=== PATIENT | female | born 1940 | race Caucasian/White ===

== ENCOUNTER 2019-06-05 11:28 | Observation (INO) | payer MEDICARE, SELFPAY ==
[2019-06-05] VITALS (7 sets, daily range): BP systolic 106–181; BP diastolic 47–91; PULSE 61–83; RESP 16–33; TEMP 36.6–36.8; O2SAT 95–99; BMI 22.7
--- NOTE | ~2019-06-05 | XR_ITS ---
EXAMINATION: XR chest 1V portable DATE: 06/05/2019 12:00 INDICATION: Altered mental status. TECHNIQUE: A single frontal view of the chest was obtained. COMPARISON: Chest 2 views 02/22/2019, chest CT 11/04/2018 FINDINGS: There is mild scarring at the lung apices. There are lucencies in the lungs, consistent wit h emphysema. No pleural effusion or pneumothorax. The heart size is normal. IMPRESSION: 1. Mild scarring at the lung apices. 2. Emphysema. Reviewed, dictated and finalized at location A. DCASTER
--- NOTE | ~2019-06-05 | XR_ITS ---
EXAMINATION: XR barium swallow modified EXAM DATE: 06/07/2019 10:46 INDICATION: Dysphagia. TECHNIQUE: Modified barium esophagram was performed by myself to administered fluoroscopy, in conjun ction with speech pathologist who administered barium in varying consistencies as per speech patholog ist documentation. This was recorded on tape. The DAP for this procedure was 0.5 Gycm2. FINDINGS: Oral stage: Adequate function. Pharyngeal phase: Adequate function. Laryngeal penetration: Trace. Aspiration: None. Laryngeal sensitivity: Present. IMPRESSION: Patient tolerated oral feedings in the upright position. Please refer to speech patholo gist findings and specific feeding recommendations. Reviewed, dictated and finalized at location A. AURANT LINE COOK IMPRESSION: Patient tolerated oral feedings in the upright position. Please r efer to speech pathologist findings and specific feeding recommendations.
--- NOTE | ~2019-06-05 | CT_ITS ---
EXAMINATION: CT abdomen pelvis wo con DATE: 06/05/2019 13:16 INDICATION: Abdominal pain. TECHNIQUE: Computed tomography (CT) of the abdomen and pelvis was performed without intravenous contr ast. Automated exposure control and iterative reconstruction technique were employed. The dose-length product was 236.49 mGy-cm. COMPARISON: None. FINDINGS: The visualized portions of the lung bases demonstrate emphysema. There is mild atelectasis in the lungs. No pleural effusion. The heart size is normal. No pericardial effusion. There is a 12 m m cyst in the liver. The gallbladder, spleen, pancreas, adrenal glands, and left kidney are normal. T here are 5 stones in right kidney measuring up to 4 mm. There is a 3.1 cm fusiform aneurysm of infrar enal aorta. There are no pathologically enlarged lymph nodes. There is no free intraperitoneal fluid. There is lumbar dextroscoliosis and severe spondylosis. IMPRESSION: 1. Nonobstructing right kidney stones. 2. 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 Reviewed, dictated and finalized at location A. OMER OPERATIONS ASSOCIATE
--- NOTE | ~2019-06-05 | US_ITS ---
EXAMINATION: US renal BI DATE: 06/06/2019 08:04 INDICATION: Acute renal failure. TECHNIQUE: Multiple ultrasound grayscale images of the kidneys were obtained. COMPARISON: CT abdomen and pelvis 06/05/2019 FINDINGS: The right kidney measures 9.9 x 3.8 x 3.6 cm. The left kidney measures 10.5 x 4.7 x 5.4 cm. The kidne ys demonstrate normal parenchymal echogenicity. There are stones in right kidney measuring up to 4 mm . There is no hydronephrosis. The bladder is not well distended. IMPRESSION: 1. Normal kidney sizes No hydronephrosis. 2. Nonobstructing right kidney stones. Reviewed, dictated and finalized at location A. ATRIC NEPHROLOGIST
--- NOTE | ~2019-06-05 | CT_ITS ---
EXAMINATION: CT brain wo con EXAM DATE: 06/05/2019 12:35 INDICATION: Temporary change in awareness. TECHNIQUE: Spiral CT of the head was performed without contrast. Axial, coronal and sagittal images were reviewed. The dose-length product (DLP) for this examination was 605.33 mGy-cm. The exposure w as tailored according to patient size, and iterative reconstruction (ASIR) was used as additional dos e reduction technique. Comparison is made to prior examination from 10/07/2017. FINDINGS: There is no acute intraparenchymal hemorrhage. No evidence of intraparenchymal brain mass lesion. No evidence of acute infarction. Mild cerebral atrophy. There is no mass effect or midline s hift. The ventricles are normal in size. There are no extra-axial collections. There are no acute calvarial fractures. Patient has had bilateral ocular lens surgery. Soft tissue is unremarkable. Mi ld mucoperiosteal thickening and mild intracranial arterial sclerosis. IMPRESSION: 1. No acute intracranial findings. Reviewed, dictated and finalized at location A. EAR FUEL ENRICHMENT TECHNICIAN
--- NOTE | 2019-06-05 11:39 | ED.NEUROSD ---
HPI - Neuro Symptoms/Deficit General Chief Complaint: Neuro Symptoms/Deficit Stated Complaint: dizzy, weakness Time Seen by Provider: 06/05/19 11:33 Source: family (son) Mode of arrival: wheelchair Limitations: other (clinical condition) History of Present Illness HPI Narrative: Pt is a 79 y/o female who presents to the ED by son, with c/o a possible stroke. Pt lives with her granddaughter and has a H/o stroke. She also has a H/o COPD and this morning she went and got her blood drawn. Pt went to physical therapy this morning and when her son saw her she was not acting normal. Pt's son states that she was san[place] this morning and was not answering his questions and staring off. Pt has been nauseas and having problems with her stomach. Per son, they were on their way to the hospital to get O2 tubing and he stopped by the ED because she was not responding to his questions. Pt is on blood thinners and pt did not have anything to eat today. Per son, pt had a similar episode and was seen in the ED for dehydration. A complete HPI is limited d/t pt's clinical condition. Onset (ago): unknown Location: altered History of same: Yes Severity: similar to previous episodes Quality: other (not responding to questions) Context: gradual onset On Anticoagulants: Yes Associated symptoms: confusion Related Data Allergies Allergy/AdvReac Type Severity Reaction Status Date / Time atorvastatin [From Lipitor] Allergy Hives Verified 06/05/19 11:50 fenofibrate Allergy Hives Verified 06/05/19 11:51 Review of Systems Review of Systems: Narrative: A complete ROS is limited d/t pt's clinical condition. Gastrointestinal: Gastrointestinal: Reports nausea Neurologic: Reports behavioral changes and Reports confusion [facility] Past Medical History Medical History (Updated 06/05/19 @ 13:52 by Shashi Tam DO) COPD (chronic obstructive pulmonary disease) GERD (gastroesophageal reflux disease) HTN (hypertension) Shingles Stroke Surgical History Surgical History (Updated 06/05/19 @ 12:22 by Reji Lawrence) H/O bilateral cataract extraction H/O: hysterectomy Family History Family History (Updated 07/14/17 @ 11:18 by DOCTOR UNKNOWN) Mother Hypertension Cerebrovascular accident Sibling Cerebrovascular accident Family history of coronary artery disease Father Family history of chronic obstructive pulmonary disease Social History Social History Smoking status: Former smoker Second hand tobacco smoke exposure: No Smoking end date: 05/03/16 Alcohol intake: never Gender identity (if verbalized by the patient): Female Exam Narrative: Exam Narrative: APPEARANCE: No acute distress, nontoxic, resting in bed HEENT: Normocephalic, atraumatic, oral mucosa dry EYES: PERRL, EOMI NECK: Supple, nontender, full range of motion without pain, no meningismus RESPIRATORY: No respiratory distress, clear to auscultation bilaterally with no rhonchi wheezing or rales CARDIOVASCULAR: RRR s murmur ABDOMINAL: Soft, nontender, nondistended MUSCULOSKELETAL: Moves all extremities. No clubbing, cyanosis or edema. NEURO: A and O ?3, following commands, speech normal, cranial nerves II through XII grossly intact,muscle strength 5 out of 5 bilateral upper and lower extremities SKIN:: Warm, dry. Normal Color PSYCHIATRIC: Normal affect/mood Course Course Emergency Course: Reviewed records creatinine 1.5 at last visit Discussed with patient and family results of workup and diagnosis. Discussed need for admission. Patient and family understand and agree to current treatment plan Consultations Consultation #1: Discussed case with Nia Lopez NP for the hospitalist. Accepted admission. Date: 06/05/19 Time: 13:43 Vital Signs Vital signs: Vital Signs Temperature 97.8 F 06/05/19 11:40 Pulse Rate 63 06/05/19 11:40 Respiratory Rate 23 H 06/05/19 11:40 Blood Pressure 135/52 L 06/05/19 11:40 Puls
[2019-06-05 11:42] LABS: Glucose Point of Care 104 (65-105)
--- NOTE | 2019-06-05 11:43 | ECG_ITS ---
Measurements Intervals [place] Rate: 66 P: 63 IN: 159 QRS: 20 QRSD: 77 T: 52 QT: 403 QTc: 423 Interpretive Statements SINUS RHYTHM BORDERLINE ST-T WAVE ABNORMALITY- INF/LAT LEADS BORDERLINE ECG Electronically Signed On 06-05-2019 12:18:36 REGISTERED TRAVEL NURSE by Shoaib Mixon D.O.
[2019-06-05] MEDS: LACTATED RINGERS 1,000 ML 999 ML IV CONT (11:51)
[2019-06-05 11:59] LABS: Basophils Absolute Auto 0.2 K/mm3 (0.0-0.1); Eosinophils Absolute Auto 7.3 K/mm3 (0-0.3); Eosinophils Percent Auto 37.8 % (0-4.4); Hematocrit 39.5 % (37.0-47.0); Hemoglobin 12.8 g/dL (12.0-15.0); Immature Granulocyte Absolute 0.06 K/mm3 (0.00-0.031); Immature Granulocyte Percent A 0.3 % (0-0.5); Lymphocytes Absolute Auto 3.46 K/mm3 (0.9-3.2); Lymphocytes Percent Auto 17.9 % (18.3-44.2); Mean Corpuscular HGB Conc 32.4 g/dl (32-36); Mean Corpuscular Hemoglobin 30.2 pg (26-34); Mean Corpuscular Volume 93.2 fl (80-100); Mean Platelet Volume 10.9 fl (7.4-10.4); Monocytes Absolute Auto 0.8 K/mm3 (0.1-0.6); Monocytes Percent Auto 4.3 % (2.6-8.5); Neutrophils Absolute Auto 7.5 K/mm3 (1.3-6.7); Neutrophils Percent Auto 38.7 % (45.5-73.1); Platelet Count Result 320 k/mm3 (150-375); Red Blood Count 4.24 M/mm3 (4.2-5.4); White Blood Count 19.3 K/mm3 (4.5-10.0)
[2019-06-05 12:10] LABS: INR 0.9; Prothrombin Time 11.8 Seconds (11.1-14.7)
[2019-06-05 12:14] LABS: Alanine Aminotransferase 12 U/L (4-35); Albumin Level 4.3 g/dL (3.5-5.1); Alkaline Phosphatase 77 U/L (38-126); Aspartate Amino Transferase 18 U/L (14-36); Bilirubin,Total 0.6 mg/dL (0.2-1.3); Blood Urea Nitrogen 43 mg/dL (7-17); Calcium 9.6 mg/dL (8.4-10.2); Carbon Dioxide 22 mmol/L (22-30); Chloride 100 mmol/L (98-107); Estimated CRCL calculation 13 ml/min; Estimated Glomerular Filt Rate 15; Glucose 115 mg/dL (65-105); Potassium 4.6 mmol/L (3.4-5.0); Sodium 136 mmol/L (137-145)
--- NOTE | 2019-06-05 12:15 | PC.NURSE ---
Pt taken to CT.
[2019-06-05 12:25] LABS: Troponin I < 0.012 ng/mL (0.000-0.034)
[2019-06-05 12:42] LABS: Lactic Acid Reflex 1.1 mmol/L (0.7-2.1)
[2019-06-05 12:49] LABS: Add Urine Microscopic? YES; Appearance Urine Clear (Clear); Bilirubin Urine Negative (Negative); Blood Urine Negative (Negative); Color Urine Yellow (Yellow); Glucose Urine UA Negative (Negative); Ketones Urine Trace mg/dL (Negative); Leukocyte Esterase Ur Negative LEU/UL (Negative); Mucus Urine Rare /lpf; Nitrate Urine Negative (Negative); Protein Urine Negative (Negative); RBC Urine 0-2 /hpf (0-2); Specific Grav Ur 1.011 (1.001-1.035); Squamous Epithelial Cell Urine Moderate /hpf (Few); Urobilinogen Urine Negative mg/dL (<2.0); WBC Urine 0-3 /hpf
--- NOTE | 2019-06-05 15:10 | ADMGEN ---
This patient, Grecia Peres, was admitted to Medical Room 346-. Patient arrived to unit per wheelchair. Patient/family oriented to hospital policies and general routines including ID bracelet, bed and alarms, visiting hours, pain management, procedures, bathroom and other care routines, personal items, smoking policy, room service/diet, and visiting hours. Valuables list has been completed. Information on how to activate the Rapid Response Team has been discussed. Patient/Family are encouraged to report perceived risks to care and to ask questions if they do not understand what they are told or what they should do.
[2019-06-05] MEDS: LACTATED RINGERS 1,000 ML 100 ML IV CONT (15:24)
[2019-06-05] MEDS: hydrALAZINE HCL 20 MG/ML VIAL 10 MG IV PUSH (16:30)
--- NOTE | 2019-06-05 18:35 | ECG_ITS ---
Measurements Intervals [place] Rate: 86 P: 69 ME: 147 QRS: 53 QRSD: 77 T: 72 QT: 360 QTc: 433 Interpretive Statements SINUS RHYTHM BORDERLINE ST ABNORMALITY- DIFFUSE LEADS BASELINE ARTIFACT- V1-V3, V5-V6 BORDERLINE ECG Electronically Signed On 06-06-2019 6:54:14 SLOT MACHINE MECHANIC by Shoaib Mixon D.O.
[2019-06-05 19:22] LABS: Troponin I < 0.012 ng/mL (0.000-0.034)
[2019-06-05 22:20] LABS: Troponin I < 0.012 ng/mL (0.000-0.034)
[2019-06-06] VITALS (20 sets, daily range): BP systolic 134–180; BP diastolic 61–80; PULSE 66–98; RESP 16–18; TEMP 36.1–36.4; O2SAT 95–99; BMI 22.7
--- NOTE | 2019-06-06 00:06 | PM.IMHP ---
H&P: HPI History of Present Illness Chief complaint: Acute renal failure/Leukocytosis Narrative: Grecia Peres is a 79 year old female Has a history of having several TIA. Patient is currently on Plavix and aspirin. The patient also has COPD and is only on oxygen at night. The patient's son stated that she was grave this morning and was not answering questions and she was staring off into space. She has been nauseated having some acid reflux and takes omeprazole. The patient was on her way to the hospital to get oxygen 2 being his stop by the emergency room because the patient was not responding any questions. Patient is now awake and answering questions without difficulty. Head CT was negative. CT of the abdomen was also taken due to her nausea and it was read as nonobstructing right kidney stone. 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 Date of service 06/05/2019 creatinine was noted to be 3.0 with last creatinine being 1.5 approximately 4 months ago. The patient was started on IV fluids. She is admitted for acute renal failure dehydration. Review of Systems Review of Systems: All systems reviewed & are unremarkable except as noted in HPI and below Constitutional: Constitutional: Reports as per HPI, Reports no additional constitutional complaints, Reports fatigue, Reports lethargy, Reports malaise and Reports weakness Eyes: Eyes: Reports as per HPI and Reports no additional eye complaints ENT: Reports system reviewed and no additional complaints, except as documented and Reports Normal hearing present Cardiovascular: Cardiovascular: Reports no additional cardiovascular complaints, Reports chest pain ( chest pressure earlier today) and Reports dyspnea on exertion ( she has CHF and COPD) Respiratory: Respiratory: Reports no additional respiratory complaints, Reports no additional respiratory complaints, Reports dyspnea ( With exertion), Reports wheezing and Reports other ( wears oxygen at 2 L night. History of COPD) Gastrointestinal: Gastrointestinal: Reports as per HPI, Reports no additional gastrointestinal complaints, Reports excessive flatus, Reports dyspepsia and Reports nausea Musculoskeletal: Musculoskeletal: Reports no additional musculoskeletal complaints Integumentary/Breasts: Skin/Breast: Reports system reviewed and no additional complaints, except as docu and Reports as per HPI Neurologic: Reports system reviewed and no additional complaints, except as documented, Reports as per HPI and Reports Normal hearing present Psychiatric: Psychiatric: Reports no additional psychiatric complaints and Reports as per HPI Endocrine: Endocrine: Reports no additional endocrine complaints Hematologic/Lymphatic: Hematologic/Lymphatic: Reports no additional hematologic/lymphatic complaints Allergic/Immunologic: Allergic/Immunologic: Reports no additional allergic/immunologic complaints [facility] Past Medical History Medical History (Updated 06/06/19 @ 00:19 by Nia Lopez NP) Congestive heart failure diastolic COPD (chronic obstructive pulmonary disease) GERD (gastroesophageal reflux disease) History of TIAs x6 HTN (hypertension) Hypoxia Restless leg syndrome Shingles x2 across breast Stroke Surgical History Surgical History (Updated 06/05/19 @ 12:22 by Reji Lawrence) H/O bilateral cataract extraction H/O: hysterectomy Family History Family History Mother Hypertension Cerebrovascular accident Sibling Cerebrovascular accident Family history of coronary artery disease Father Family history of chronic obstructive pulmonary disease Social History Social History (Updated 06/06/19 @ 00:14 by Nia Lopez NP) Social History: the patient is from her who is now . She lives with her granddaughter. She has 2 children. Her son is the power assistant county attorney. She desires full code but does not want to live on a ventilator is a veg
[2019-06-06] MEDS: PROPRANOLOL HCL 20 MG TABLET 60 MG PO ×3 (01:11→20:58)
[2019-06-06] MEDS: LACTATED RINGERS 1,000 ML 100 ML IV CONT ×3 (01:12→21:01)
[2019-06-06 02:23] LABS: Troponin I < 0.012 ng/mL (0.000-0.034)
[2019-06-06] MEDS: ALBUTEROL SULFATE NEB 2.5 MG/0.5 ML INH 5 MG INHALATION ×4 (03:08→22:12)
[2019-06-06 03:48] LABS: Creatinine Urine 27.7 mg/dL
[2019-06-06 04:16] LABS: Sodium Urine Random 47 meq/L
[2019-06-06 06:19] LABS: Basophils Absolute Auto 0.2 K/mm3 (0.0-0.1); Basophils Percent Auto 1.2 % (0.2-1.2); Eosinophils Absolute Auto 6.8 K/mm3 (0-0.3); Eosinophils Percent Auto 44.1 % (0-4.4); Hematocrit 33.8 % (37.0-47.0); Hemoglobin 11.1 g/dL (12.0-15.0); Immature Granulocyte Absolute 0.04 K/mm3 (0.00-0.031); Immature Granulocyte Percent A 0.3 % (0-0.5); Lymphocytes Absolute Auto 2.92 K/mm3 (0.9-3.2); Lymphocytes Percent Auto 18.9 % (18.3-44.2); Mean Corpuscular HGB Conc 32.8 g/dl (32-36); Mean Corpuscular Hemoglobin 30.2 pg (26-34); Mean Corpuscular Volume 92.1 fl (80-100); Mean Platelet Volume 10.5 fl (7.4-10.4); Monocytes Absolute Auto 0.7 K/mm3 (0.1-0.6); Monocytes Percent Auto 4.7 % (2.6-8.5); Neutrophils Absolute Auto 4.8 K/mm3 (1.3-6.7); Neutrophils Percent Auto 30.8 % (45.5-73.1); Platelet Count Result 285 k/mm3 (150-375); Red Blood Count 3.67 M/mm3 (4.2-5.4); Red Cell Distribution Width 13.8 % (11.5-14.5); White Blood Count 15.4 K/mm3 (4.5-10.0)
[2019-06-06 06:35] LABS: Blood Urea Nitrogen 35 mg/dL (7-17); Calcium 8.9 mg/dL (8.4-10.2); Carbon Dioxide 25 mmol/L (22-30); Chloride 105 mmol/L (98-107); Estimated CRCL calculation 14 ml/min; Estimated Glomerular Filt Rate 16; Glucose 103 mg/dL (65-105); Potassium 4.5 mmol/L (3.4-5.0); Sodium 138 mmol/L (137-145)
[2019-06-06] MEDS: FLUTICASONE PROPIONATE 0.05% NA SPR 16 GM BTL (*BKC) 1 SPRAY NASAL ×2 (09:02→16:26)
[2019-06-06] MEDS: PANTOPRAZOLE SOD SESQUIHYDRATE 20 MG TAB PO (09:03)
[2019-06-06] MEDS: CLOPIDOGREL BISULFATE 75 MG TABLET PO (09:03)
[2019-06-06] MEDS: MULTIVITAMINS THERAPEUTIC TAB (*BKC) 1 TABLET PO (09:03)
[2019-06-06] MEDS: estradioL 0.5 MG TABLET PO (09:03)
[2019-06-06] MEDS: ASPIRIN 81 MG CHEWABLE TABLET PO (09:03)
[2019-06-06] MEDS: ACETAMINOPHEN 325 MG TABLET 650 MG PO (09:50)
[2019-06-06] MEDS: ROFLUMILAST 500 MCG TABLET PO (09:52)
--- NOTE | 2019-06-06 11:50 | PHAR ---
HOME MED VERIFIED BY PHARMACY: [id number] [Trelegy Ellipta] INHALER
--- NOTE | 2019-06-06 12:45 | PCSTNOTE ---
Bedside Swallow Evaluation completed today using water, applesauce, pudding, and cracker. No s/s aspiration noted. Patient reports occasional tickle when drinking large amounts of water, stating that she does not like water and would rather not drink it. Therapist recommended MBS to further assess swallowing and to determine if there were dietary modifications and/or compensatory strategies that would prevent the tickle and patient and son were in agreement. Therapist spoke with physician who also voiced agreement with recommendation. See BSE report for specific results and recommendations.
--- NOTE | 2019-06-06 13:18 | CONS_ITS ---
DATE OF CONSULTATION: Patient of Dr. Rocky Gastelum. HISTORY OF PRESENT ILLNESS: This 79 years old right-handed female has been admitted to the hospital through the emergency room for the complaint of inability to answer the son's question and staring off into the space. The patient was reportedly on her way to the hospital to get oxygen, but she stopped in the emergency room as she was not responding to the questions. By the time she came to the floor, she was awake, alert, and conversing comfortably. The patient does carry the history of 1. TIA for which she is on Plavix and aspirin. 2. COPD for which she received oxygen at night. In the emergency room, they obtained a CT of the abdomen because of the complaint of nausea. 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 Creatinine was 3.0, it was 1.5 about 4 months ago. She was started on IV fluids for the diagnosis of acute renal failure with dehydration. Other general physical examination was normal. PAST MEDICAL HISTORY: She does have the ongoing history of 1. Diastolic congestive heart failure. 2. Chronic obstructive pulmonary disease. 3. GERD. 4. Hypertension. 5. Restless legs syndrome. 6. Shingles. 7. Recurrent TIA. PAST SURGICAL HISTORY: In the past, she has undergone bilateral cataract extraction and hysterectomy. SOCIAL HISTORY: She smokes 1-1/2 packs per day, though she is a former smoker at present and does not drink. MEDICATIONS: She has been on multiple medications as outlined. ALLERGIES: IN ADDITION, SHE IS ALLERGIC TO ATORVASTATIN AND FENOFIBRATE. PHYSICAL EXAMINATION: VITAL SIGNS: On initial evaluation, she was afebrile with pulse 63, respiration 23, blood pressure 135/52, pulse ox 95%. GENERAL: Examination revealed her to be awake, alert, cooperative, in no obvious acute distress. HEENT: Head normocephalic with no cranial bruit. Ears, nose, throat examination normal. NECK: Supple with no cervical bruit. No thyromegaly. No lymphadenopathy. HEART: Regular with no murmur. LUNGS: Clear to auscultation. ABDOMEN: Soft with no organomegaly. NEUROLOGICAL: She is awake, alert. She is able to follow the verbal commands appropriately. Speech is not dysphasic, not dysarthric, not dysphonic. Pupils round and regular. Wilson of vision full. Extraocular movement full. Face symmetrical. Tongue midline. Motor examination revealed her to have no drift of 1 side or other side. Tone normal. Reflexes symmetrical. Plantars downgoing. There is no evidence of gross cerebellar deficit. IMPRESSION: Transient ischemic attack. Evaluation up until now includes the head CT, which is negative, abdomen and pelvic CT scan, which shows nonobstructive right kidney stone and a 3.1 cm fusiform aneurysm of the infrarenal aorta. Renal ultrasound otherwise was without evidence of hydronephrosis and nonobstructing right renal stone. At this stage, the patient is receiving aspirin 81 mg daily, clopidogrel 75 mg daily. Medications will be continued as such. Thorough discussion was made with the family for further long-term recommendation. WANG KIRAN M.D. THERAPEUTIC CONSULTANT THERAPEUTIC CONSULTANT D I MT: [place]
--- NOTE | 2019-06-06 13:19 | WPDGICN ---
Assessment and Plan Additional Plan This is a 79-year-old white female patient I am asked to see at the request of Dr. Gastelum, hospitalist service. Patient admitted to the hospital with episode of poor responsiveness. She is felt to have had dehydration. She is being evaluated for possible TIA. She has had TIAs in the past. Patient reports over the last 3-4 months that she has had episodes of low abdominal twisting and cramping pain. This is associated with nausea and vomiting. And ultimately passing a bowel movement. This son and patient both report that she is constipated frequently. Patient denies any blood loss. She reports a 7 lb weight loss over the last 1 month. She has a relatively poor appetite. Past medical history is significant for colon polyps by colonoscopy in 2013. Follow-up colonoscopy is not yet been accomplished. She states that she will get these severe episodes of pain 3 to 4 times a month. She desires further evaluation of this. Past medical history is significant for COPD. Congestive heart failure. She has a history of TIAs in the past. She has a history of colon polyps. She has a history of kidney stones. Family history is noncontributory. There is a history of strokes in the family. Physical exam reveals her to be alert. Oriented x3. Vital signs stable. HEENT exam unremarkable. She is anicteric. Lungs are clear to auscultation and percussion. Heart is without murmur or extra sounds. Abdominal exam bowel sounds are present soft nontender with no hepatosplenomegaly. Digital external rectal exam normal. Impression 1. Recurrent nausea vomiting. 2. Recurrent lower abdominal pain. Somewhat suspicious for spastic colon given her description of twisting. May be related to constipation. 3. Change in bowel habits. Constipation. Plan is for fiber stool softener such as Metamucil. As needed laxative such as MiraLax. 4. Episode of unresponsiveness. Likely represents dehydration. TIA is being evaluated as a possibility. 5. COPD 6. Congestive heart failure. 7. History of colon polyp. In view of his history of colon polyps and recurrent lower abdominal pain. Change in bowel habits. Plan is to proceed with colonoscopy in the morning. Will also evaluate EGD to assess recurrent nausea vomiting. Fiber stool softener such as Metamucil is advised to be supplemented with MiraLax laxative. As needed. GI Consult Note Consult date/time: 06/06/19 13:19 HPI: Grecia Peres is a 79 year old female [facility] Past Medical History Medical History (Updated 06/06/19 @ 00:19 by Nia Lopez NP) Congestive heart failure diastolic COPD (chronic obstructive pulmonary disease) GERD (gastroesophageal reflux disease) History of TIAs x6 HTN (hypertension) Hypoxia Restless leg syndrome Shingles x2 across breast Stroke Surgical History Surgical History (Updated 06/05/19 @ 12:22 by Reji Lawrence) H/O bilateral cataract extraction H/O: hysterectomy Family History Family History Mother Hypertension Cerebrovascular accident Sibling Cerebrovascular accident Family history of coronary artery disease Father Family history of chronic obstructive pulmonary disease Social History Social History (Updated 06/06/19 @ 00:14 by Nia Lopez NP) Social History: the patient is from her who is now . She lives with her granddaughter. She has 2 children. Her son is the power erisa attorney. She desires full code but does not want to live on a ventilator is a vegetable. She is originally from [facility]. She is a former smoker Smoking packs per day: 1.5 Smoking cigarettes per day: 30.0 Smoking status: Former smoker Tobacco type: cigarettes Second hand tobacco smoke exposure: No Smoking end date: 05/03/15 Alcohol intake: never Substance use: never Living arrangements: with family [place]
--- NOTE | 2019-06-06 13:30 | NEURO_ITS ---
TEST: ELECTROENCEPHALOGRAM DIAGNOSIS: POSSIBLE SEIZURE PATIENT NUMBER: [id number] EEG NUMBER: [id number] RECORDING DATE: 06/06/19 CONDITION OF RECORDING: Awake and drowsy EEG DESCRIPTION: Basic resting occipital frequency consists of moderate amount of poorly organized low voltage 9-11hz alpha mixed with low voltage 15-18hz beta. Regular intermittent EKG artifacts are noted. During drowsiness low voltage beta activity is seen diffusely mixed with waxing and waning posterior alpha rhythms. Multiple movement and muscle artifacts are noted throughout the tracing. Hyperventilation and photic stimulation were not done. Nonparoxysmal. Nonfocal. Nonlateralizing IMPRESSION: No significant abnormalities noted. MTDD
[2019-06-06] MEDS: PEG (High)/E-LYTE SOLN 4,000 ML BTL 4000 ML PO (14:16)
--- NOTE | 2019-06-06 14:40 | PM.IMPN ---
Progress Note: A&P Assessment and Plan (1) History of TIAs: Code(s): Z86.73 - Personal history of transient ischemic attack (TIA), and cerebral infarction without residual deficits Status: Acute Assessment and Plan: Patient with several TIA in the patient was brought to emergency department with unresponsiveness and staring in the space to further evaluate we have consulted neurologist and ordered EEG further recommendation to follow (2) Dysphagia: Code(s): R13.10 - Dysphagia, unspecified Status: Acute Assessment and Plan: Patient with complaint of dysphagia poor p.o. intake will do the bedside swallow study and modified swallow study patient be seen by GI and further recommendation to follow (3) Acute renal failure: Code(s): N17.9 - Acute kidney failure, unspecified Status: Acute Assessment and Plan: 06/06/19 14:40 patient is 79-year-old female with several TIA in the patient was brought to the emergency department as patient was unresponsive current the patient's son on and off patient states in the space and does not respond, patient also complains of dysphagia and rarely drinks any flu because of the pain with swallowing, patient is also found to have acute kidney injury most likely secondary dehydration due to poor p.o. intake. Kidney and ultrasound shows normal kidneys, will continue to hydrate the patient (4) COPD (chronic obstructive pulmonary disease): Code(s): J44.9 - Chronic obstructive pulmonary disease, unspecified Status: Chronic Assessment and Plan: Patient wears oxygen at nighttime 2 L per nasal cannula. Continue with her nebulizer treatments and inhalers. Continue with Daliresp if we have it on formulation. (5) GERD (gastroesophageal reflux disease): Code(s): K21.9 - Gastro-esophageal reflux disease without esophagitis Status: Chronic Assessment and Plan: Continue with omeprazole. Patient also complains of dysphagia (6) Leukocytosis: Code(s): D72.829 - Elevated white blood cell count, unspecified Status: Acute Assessment and Plan: Could be stress related. Patient urine is clear will continue to monitor (7) Restless leg syndrome: Code(s): G25.81 - Restless legs syndrome Status: Chronic Assessment and Plan: continue with Requip (8) HTN (hypertension): Code(s): I10 - Essential (primary) hypertension Status: Chronic Assessment and Plan: I gave her hydralazine earlier which helped her blood pressure come down nicely. I am holding her lisinopril for tonight and not do p.r.n. hydralazine. continue propanolol. Time Spent With Patient Time with patient: 15 - 25 minutes Subjective Date/time seen: 06/06/19 14:40 patient is 79-year-old female with several TIA in the patient was brought to the emergency department as patient was unresponsive current the patient's son on and off patient states in the space and does not respond, patient also complains of dysphagia and rarely drinks any flu because of the pain with swallowing, patient is also found to have acute kidney injury most likely secondary dehydration due to poor p.o. intake. Review of Systems Review of Systems: All systems reviewed & are unremarkable except as noted in HPI and below Exam Const: General: comfortable and no acute distress HENMT: General nose exam: Normal nares present Mouth: Yes moist mucous membranes Eyes: General: appearance normal, both eyes and all related structures Sclera: sclerae normal Neck: Neck: supple Resp: Other: Bilateral fair air entry with wheezing Cardio: Rate: regular rate Rhythm: regular rhythm GI: Auscultation: normal bowel sounds Skin: General skin exam: normal color and no rashes or lesions noted Neuro: Speech: normal speech Sensory Exam: normal sensation Extrem: General: normal to inspection Psych: Affect: Anxious affect present Objective Data
[2019-06-07] VITALS (11 sets, daily range): BP systolic 152–182; BP diastolic 68–92; PULSE 80–95; RESP 16–27; TEMP 36.2–36.5; O2SAT 97–100
[2019-06-07] MEDS: ALBUTEROL SULFATE NEB 2.5 MG/0.5 ML INH 5 MG INHALATION (02:40)
[2019-06-07] MEDS: ONDANSETRON HCL ODT 4 MG TABLET PO (05:49)
[2019-06-07 05:53] LABS: Hematocrit 33.4 % (37.0-47.0); Mean Corpuscular HGB Conc 32.9 g/dl (32-36); Mean Corpuscular Hemoglobin 30.1 pg (26-34); Mean Corpuscular Volume 91.5 fl (80-100); Mean Platelet Volume 10.9 fl (7.4-10.4); Platelet Count Result 309 k/mm3 (150-375); Red Blood Count 3.65 M/mm3 (4.2-5.4); Red Cell Distribution Width 13.9 % (11.5-14.5); White Blood Count 15.1 K/mm3 (4.5-10.0)
[2019-06-07 06:34] LABS: Albumin Level 3.3 g/dL (3.5-5.1); Blood Urea Nitrogen 24 mg/dL (7-17); Calcium 8.8 mg/dL (8.4-10.2); Carbon Dioxide 26 mmol/L (22-30); Chloride 105 mmol/L (98-107); Estimated CRCL calculation 16 ml/min; Estimated Glomerular Filt Rate 20; Glucose 95 mg/dL (65-105); Phosphorus 3.1 mg/dL (2.5-4.5); Sodium 140 mmol/L (137-145)
[2019-06-07] MEDS: ACETAMINOPHEN 325 MG TABLET 650 MG PO (07:39)
--- NOTE | 2019-06-07 08:02 | WPDANESEPPF ---
Anes - Initial Pre Proc Eval Procedure: Operation Date: 06/07/19 08:30 Proposed Procedures p Esophagogastroduodenoscopy & Colonoscopy - Ronny Grimes MD Date/Time: 06/07/19 08:02 Surgeon: Angelina Gastelum MD Pre Op Diagnosis: Acute renal failure/Leukocytosis Patient Data Age: 79 Gender: F Height: 1.65 m Weight: 62 kg Last Vital Signs Temp 36.2 C L 06/07/19 05:27 Pulse 87 06/07/19 05:27 Resp 16 06/07/19 05:27 BP 160/74 H 06/07/19 05:27 Pulse Ox 97 06/07/19 05:27 Allergies Allergy/AdvReac Type Severity Reaction Status Date / Time atorvastatin [From Lipitor] Allergy Hives Verified 06/05/19 11:50 fenofibrate Allergy Hives Verified 06/05/19 11:51 Home Medications Medication Instructions Recorded Confirmed Type albuterol sulfate 90 mcg/actuation 2 inhalation INHALATION Q4-6H PRN 05/01/19 06/05/19 Rx aerosol inhaler #8.5 gm albuterol sulfate 5 mg INHALATION Q6H 06/05/19 06/05/19 History aspirin 81 mg PO DAILY 06/05/19 06/05/19 History cholecalciferol (vitamin D3) 50 mcg PO DAILY 06/05/19 06/05/19 History [Vitamin D3] clopidogrel [Plavix] 75 mg PO DAILY 06/05/19 06/05/19 History estradiol 0.5 mg PO DAILY 06/05/19 06/05/19 History ezetimibe [Zetia] 10 mg PO DAILY 06/05/19 06/05/19 History fluticasone propionate [Flonase 1 spray INTRANASAL BID 06/05/19 06/05/19 History Allergy Relief] [id number]-[id number] 1 inh INHALATION DAILY 06/05/19 06/05/19 History [Trelegy Ellipta] hydroxyzine HCl 25 mg PO TID 06/05/19 06/05/19 History lisinopril 10 mg PO DAILY 06/05/19 06/05/19 History lisinopril 30 mg PO DAILY 06/05/19 06/05/19 History meclizine 12.5 mg PO DAILY PRN 06/05/19 06/05/19 History multivitamin [Daily Multi-Vitamin] 1 tablet PO DAILY 06/05/19 06/05/19 History omeprazole 20 mg PO BID 06/05/19 06/05/19 History ondansetron 4 mg PO Q6H PRN 06/05/19 06/05/19 History propranolol 60 mg PO Q12H 06/05/19 06/05/19 History roflumilast [Daliresp] 500 mcg PO DAILY 06/05/19 06/05/19 History ropinirole [Requip] 0.25 mg PO PRN PRN 06/05/19 06/05/19 History Laboratory Tests 06/07/19 06/07/19 05:03 05:03 WBC 15.1 K/mm3 H K/mm3 (4.5-10.0) RBC 3.65 M/mm3 L M/mm3 (4.2-5.4) Hgb 11.0 g/dL L g/dL (12.0-15.0) Hct 33.4 % L % (37.0-47.0) MCV 91.5 fl fl (80-100) MCH 30.1 pg pg (26-34) MCHC 32.9 g/dl g/dl (32-36) RDW 13.9 % % (11.5-14.5) Plt Count 309 k/mm3 k/mm3 (150-375) MPV 10.9 fl H fl (7.4-10.4) Sodium 140 mmol/L mmol/L (137-145) Potassium 4.0 mmol/L mmol/L (3.4-5.0) Chloride 105 mmol/L mmol/L (98-107) Carbon Dioxide 26 mmol/L mmol/L (22-30) BUN 24 mg/dL H D mg/dL (7-17) Creatinine 2.40 mg/dL H mg/dL (0.7-1.0) Estim Creat Clear Calc 16 ml/min ml/min Estimated GFR 20 L (59 - ) Glucose 95 mg/dL mg/dL (65-105) Calcium 8.8 mg/dL mg/dL (8.4-10.2) Phosphorus 3.1 mg/dL mg/dL (2.5-4.5) Albumin 3.3 g/dL L g/dL (3.5-5.1) Patient hx anesthesia problems: none Family hx anesthesia problems: none [facility] Past Medical History Medical History (Updated 06/07/19 @ 08:09 by Carlos Lim MD) AAA (abdominal aortic aneurysm) 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
[2019-06-07] MEDS: LACTATED RINGERS 1,000 ML 150 ML IV CONT (08:15)
--- NOTE | 2019-06-07 08:15 | SUR.PREOP ---
Dr Grimes made aware patient took Plavix yesterday 06-06-2019. No new orders.
[2019-06-07] MEDS: BENZOCAINE (*SP) 60 ML SPRAY CAN (HURRICAINE) 1 SPRAY MUCOUS MEM (08:46)
[2019-06-07] MEDS: SIMETHICONE ORAL SUSPENSION 20 MG/0.3 ML 30 ML BOTTLE PO (09:28)
--- NOTE | 2019-06-07 10:54 | PCSTNOTE ---
Please refer to the Bedside Swallow Evaluation in the EMR.
--- NOTE | 2019-06-07 11:19 | WPDNEUROPN ---
Progress Note: A&P Assessment and Plan (1) AAA (abdominal aortic aneurysm): Code(s): I71.4 - Abdominal aortic aneurysm, without rupture Status: Acute (2) Dysphagia: Code(s): R13.10 - Dysphagia, unspecified Status: Acute (3) History of TIAs: Code(s): Z86.73 - Personal history of transient ischemic attack (TIA), and cerebral infarction without residual deficits Status: Acute (4) HTN (hypertension): Code(s): I10 - Essential (primary) hypertension Status: Chronic (5) Restless leg syndrome: Code(s): G25.81 - Restless legs syndrome Status: Chronic (6) Congestive heart failure: Code(s): I50.9 - Heart failure, unspecified Status: Chronic (7) GERD (gastroesophageal reflux disease): Code(s): K21.9 - Gastro-esophageal reflux disease without esophagitis Status: Chronic (8) COPD (chronic obstructive pulmonary disease): Code(s): J44.9 - Chronic obstructive pulmonary disease, unspecified Status: Chronic (9) Leukocytosis: Code(s): D72.829 - Elevated white blood cell count, unspecified Status: Acute Additional Plan stable Review of Systems Review of Systems: All systems reviewed & are unremarkable except as noted in HPI and below Exam Const: General: cooperative, comfortable, no acute distress, alert and awake Nutritional Appearance: average body habitus Orientation/consciousness: oriented to person, oriented to place and oriented to time Limitations: no limitations HENMT: Ears: hearing grossly normal bilaterally Eyes: General: appearance normal, both eyes and all related structures Alignment and Position: alignment normal Periorbital: periorbital findings normal Conjunctivae: conjunctivae normal Cornea: corneas normal Pupils: Equal, round and reactive pupils present Neck: Neck: full ROM and no lymphadenopathy Resp: Effort & Inspection: able to speak in complete sentences Auscultation: clear to auscultation bilaterally Cardio: Rate: regular rate Rhythm: regular rhythm Skin: General skin exam: no rashes or lesions noted Neuro: General: patient oriented x3 Cranial nerves: Yes CN's II-XII intact bilaterally Motor exam (neuro): 5/5 motor strength present throughout and Pronator motor function not present Sensory Exam: normal sensation Deep tendon reflexes (DTR's): Right triceps reflex intensity grade: 1+, Left triceps reflex intensity grade: 1+, Rt Biceps (C5, C6): 1+, Left biceps reflex intensity grade: 1+, Right brachioradialis reflex intensity grade: 1+, Left brachioradialis reflex intensity grade: 1+, Right patellar reflex intensity grade: 1+, Left patellar reflex intensity grade: 1+, Right ankle reflex intensity grade: 1+ and Left ankle reflex intensity grade: 1+ Plantar Reflex Responses: downgoing: bilateral Objective Data Vital Signs Vital Signs: Vital Signs - 24 hr 06/06/19 12:00 06/06/19 14:21 06/06/19 14:31 Temperature Pulse Rate 68 84 86 Respiratory Rate 18 18 Blood Pressure Pulse Oximetry 06/06/19 15:08 06/06/19 16:00 06/06/19 20:00 Temperature 36.2 C L Pulse Rate 69 66 71 Respiratory Rate 18 Blood Pressure 149/61 H Pulse Oximetry 95 06/06/19 20:05 06/06/19 20:58 06/06/19 22:12 Temperature 36.1 C L Pulse Rate 67 76 73 Respiratory Rate 16 18 Blood Pressure 180/80 H Pulse Oximetry 99 97 06/06/19 22:21 06/07/19 00:00 06/07/19 00:13 Temperature Pulse Rate 77 89 82 Respiratory Rate 18 Blood Pressure 155/69 H Pulse Oximetry 06/07/19 02:40 06/07/19 02:50 06/07/19 04:43 Temperature Pulse Rate 87 83 85 Respiratory Rate 18 18 Blood Pressure Pulse Oximetry 06/07/19 05:27 06/07/19 08:10 06/07/19 09:28 Temperature 36.2 C L 36.5 C Pulse Rate 87 95 91 Respiratory Rate 16 20 27 H Blood Pressure 160/74 H 182/85 H 164/92 H Pulse Oximetry 97 98 100 06/07/19 09:38 06/07/19 09:48 Temperature Pulse Rate 89 81 Respirato
--- NOTE | 2019-06-07 11:29 | PM.DS ---
DS: Diagnosis Admitting Diagnosis Admitting Diagnosis: Acute kidney failure, unspecified Discharge Diagnosis (1) History of TIAs: Code(s): Z86.73 - Personal history of transient ischemic attack (TIA), and cerebral infarction without residual deficits Status: Acute Assessment and Plan: Patient with several TIA in the patient was brought to emergency department with unresponsiveness and staring in the space to further evaluate we have consulted neurologist and ordered EEG further recommendation to follow (2) Dysphagia: Code(s): R13.10 - Dysphagia, unspecified Status: Acute Assessment and Plan: Patient with complaint of dysphagia poor p.o. intake will do the bedside swallow study and modified swallow study patient be seen by GI and further recommendation to follow (3) Acute renal failure: Code(s): N17.9 - Acute kidney failure, unspecified Status: Acute Assessment and Plan: 06/06/19 14:40 patient is 79-year-old female with several TIA in the patient was brought to the emergency department as patient was unresponsive current the patient's son on and off patient states in the space and does not respond, patient also complains of dysphagia and rarely drinks any flu because of the pain with swallowing, patient is also found to have acute kidney injury most likely secondary dehydration due to poor p.o. intake. Kidney and ultrasound shows normal kidneys, will continue to hydrate the patient (4) COPD (chronic obstructive pulmonary disease): Code(s): J44.9 - Chronic obstructive pulmonary disease, unspecified Status: Chronic Assessment and Plan: Patient wears oxygen at nighttime 2 L per nasal cannula. Continue with her nebulizer treatments and inhalers. Continue with Daliresp if we have it on formulation. (5) GERD (gastroesophageal reflux disease): Code(s): K21.9 - Gastro-esophageal reflux disease without esophagitis Status: Chronic Assessment and Plan: Continue with omeprazole. Patient also complains of dysphagia (6) Leukocytosis: Code(s): D72.829 - Elevated white blood cell count, unspecified Status: Acute Assessment and Plan: Could be stress related. Patient urine is clear will continue to monitor (7) Restless leg syndrome: Code(s): G25.81 - Restless legs syndrome Status: Chronic Assessment and Plan: continue with Requip (8) HTN (hypertension): Code(s): I10 - Essential (primary) hypertension Status: Chronic Assessment and Plan: I gave her hydralazine earlier which helped her blood pressure come down nicely. I am holding her lisinopril for tonight and not do p.r.n. hydralazine. continue propanolol. DS: Summary Hospital Course Reason for hospitalization: Grecia Peres is a 79 year old female Has a history of having several TIA. Patient is currently on Plavix and aspirin. The patient also has COPD and is only on oxygen at night. The patient's son stated that she was grave this morning and was not answering questions and she was staring off into space. She has been nauseated having some acid reflux and takes omeprazole. The patient was on her way to the hospital to get oxygen 2 being his stop by the emergency room because the patient was not responding any questions. Patient is now awake and answering questions without difficulty. Head CT was negative. CT of the abdomen was also taken due to her nausea and it was read as nonobstructing right kidney stone. 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 Date of service 06/05/2019 creatinine was noted to be 3.0 with last creatinine being 1.5 approximately 4 months ago. The patient was started on IV fluids. She is admitted for acute renal failure dehydration. Hospital Course: 06/06/19 14:40 patient is 79-year-old female with several TIA in the patient was brought to the emergency department as patient was unresponsive current the p
[2019-06-07] MEDS: CLOPIDOGREL BISULFATE 75 MG TABLET PO (12:00)
[2019-06-07] MEDS: FLUTICASONE PROPIONATE 0.05% NA SPR 16 GM BTL (*BKC) 1 SPRAY NASAL (12:00)
[2019-06-07] MEDS: estradioL 0.5 MG TABLET PO (12:00)
[2019-06-07] MEDS: ASPIRIN 81 MG CHEWABLE TABLET PO (12:00)
[2019-06-07] MEDS: MULTIVITAMINS THERAPEUTIC TAB (*BKC) 1 TABLET PO (12:00)
[2019-06-07] MEDS: PROPRANOLOL HCL 20 MG TABLET 60 MG PO (12:01)
[2019-06-07] MEDS: PANTOPRAZOLE SOD SESQUIHYDRATE 20 MG TAB PO (12:01)
[2019-06-07] MEDS: ROFLUMILAST 500 MCG TABLET PO (12:02)
[2019-06-09 04:23] LABS: Calcium/Creatinine Ratio, Ur 55 mg/g creat (10-320); Urine Calcium, Random 1.7 mg/dL (***); Urine Creatinine, Random 31 mg/dL (20-275)
[2019-06-09 04:40] LABS: Osmolality, Urine 196 mOsm/kg (50-1200)
[2019-06-09 15:41] LABS: Calculated Total (E+NE) 13 mcg/g cr (9-74); Creatinine, Urine 31 mg/dL (20-275); Dopamine, Urine 84 mcg/g cr (40-390); Norepinephrine, Urine 13 mcg/g cr (7-65)
== END 2019-06-07 13:00 | disposition home or self-care (01) ==
LOC: ANHED 13:52 → ANH3MED 14:53
PROVIDERS: Internal Medicine Gastroenterology; Nurse Practitioner; Admitting Provider Family Medicine; Emergency Provider Emergency Medicine; PCP Family Medicine; Visit Provider Family Medicine
PROC: 0DJ08ZZ Inspection of Upper Intestinal Tract, Via Natural or Artificial Opening Endoscopic (ICD-10-PCS; CPT 43235; principal; 2019-06-07 08:30)
DX: N17.9 Acute kidney failure, unspecified (principal); E86.0 Dehydration; R13.10 Dysphagia, unspecified; R11.2 Nausea with vomiting, unspecified; R10.13 Epigastric pain; K57.30 Diverticulosis of large intestine without perforation or abscess without bleeding; K64.8 Other hemorrhoids; J43.9 Emphysema, unspecified; I11.0 Hypertensive heart disease with heart failure; I50.32 Chronic diastolic (congestive) heart failure; N20.0 Calculus of kidney; I71.4 Abdominal aortic aneurysm, without rupture; D72.829 Elevated white blood cell count, unspecified; G25.81 Restless legs syndrome; K21.9 Gastro-esophageal reflux disease without esophagitis; Z79.02 Long term (current) use of antithrombotics/antiplatelets; Z79.82 Long term (current) use of aspirin; Z79.899 Other long term (current) drug therapy; Z86.010 Personal history of colon polyps; Z86.73 Personal history of transient ischemic attack (TIA), and cerebral infarction without residual deficits; Z87.891 Personal history of nicotine dependence; Z99.81 Dependence on supplemental oxygen
CPT/HCPCS: 43239; 45378; 36415; 70450; 71045; 74176; 76775; 80048; 80053; 80069; 81001; 82310; 82384; 82570; 82948; 83605; 83935; 84105; 84300; 84484; 85025; 85027; 85610; 85730; 87040; 87081; 87804; 92610; 92611; 93005; 94640; 95816; 96361; 96374; 97165; 99285; A9270; G0378; J0360; J2001; J2704; J7120

== ENCOUNTER 2019-12-04 12:17 | Outpatient (CLI) | payer MEDICARE, SELFPAY ==
--- NOTE | 2019-12-04 | ECHO_ITS ---
Patient Info Name: Grecia Peres Age: 79 years : 1940 Gender: Female Ht: 66 in Wt: 146 lbs BSA: 1.76 m2 HR: 70 bpm BP: 157 / 83 mmHg Heart Rhythm: Sinus Rhythm Technical Quality: Good Exam Date: 12/04/2019 1:42 PM Exam Location: [facility] Pulmonary Patient Status: Outpatient Admit Date: 12/04/2019 Staff Ordering Physician: Hardy Steen MD Mailhouse Operator: Sade Garza RDCS Attending Provider: Hardy Steen MD Referring Physician: Enio MUÑIZ; Exam Type: CA echo doppler color flow Study Info Indications - htn heart disease chf Complete two-dimensional, color flow and Doppler transthoracic echocardiogram is performed. Summary 1. Left ventricular chamber dimension is normal. 2. Left ventricular systolic function is normal, estimated at 55-60%. 3. There is trace mitral valve regurgitation. 4. The aortic valve is normal. Left Ventricle Left ventricular chamber dimension is normal. Left ventricular systolic function is normal, estimated at 55-60%. The left ventricular diastolic function is grade I diastolic dysfunction. Right Ventricle Right ventricular chamber dimension is normal. Left Atria Left atrial chamber dimension is normal. Right Atria Right atrial chamber dimension is normal. Aortic Valve The aortic valve is normal. Pulmonic Valve The pulmonic valve is not well visualized. Mitral Valve The mitral valve has normal leaflets. There is trace mitral valve regurgitation. Tricuspid Valve The tricuspid valve leaflets are normal. Pericardium/Pleural The pericardium appears normal. Aorta The aortic root size at the sinus of Valsalva is normal. Left Ventricular Outflow Tract Name Value Normal LVOT 2D LVOT Diameter 2.0 cm LVOT Doppler LVOT Peak Gradient 4 mmHg LVOT Mean Gradient 2 mmHg LVOT VTI 19 cm LVOT VTI/AV VTI Ratio 0.7 LVOT Stroke Volume 57 ml LVOT CO 13.0 l/min LVOT CI 7.4 l/min/m2 Pulmonic Valve Name Value Normal PV Doppler PV Peak Gradient 2 mmHg PV Regurgitation Doppler DC Peak End Diastolic Velocity 94 cm/s Mitral Valve Name Value Normal MV Doppler MV Decel Forrest 182 cm/s2 MV PHT 85 ms MV Area (PHT) 2.6 c
--- NOTE | 2019-12-04 18:01 | WPDPFTINT ---
PFT Interpretation PFT Interpretation: DOS: 12/04/2019 REQUESTING: Dr. Steen REASON FOR TESTING: Shortness of breath PULMONARY FUNCTION TESTS Results are not reliable. The patient had difficulty with full expiration on the spirometry. Spirometry: FEV1 is 42%, severely decreased. FVC is 60%. moderately decreased. FEV1% is decreased. There is no significant change with bronchodilator. Lung volumes: TLC 102%, normal. RV 164% severely increased consistent with air trapping. Increased airway resistance 550% Diffusion: DLCO 42% moderately reduced. Flow volume loop: Severe scooping of the expiratory limb IMPRESSION: Severe obstructive ventilatory impairment, severe air trapping, and moderately severe diffusion impairment. Lack of response to bronchodilator should not preclude use if clinically indicated. This pattern is consistent with emphysema. Cynthia Xiong MD
== END 2019-12-04 12:18 | disposition home or self-care (01) ==
LOC: ANHPFT 12:18
PROVIDERS: PCP Family Medicine; Visit Provider Family Medicine
DX: I13.0 Hypertensive heart and chronic kidney disease with heart failure and stage 1 through stage 4 chronic kidney disease, or unspecified chronic kidney disease (principal); R06.02 Shortness of breath; R94.2 Abnormal results of pulmonary function studies
CPT/HCPCS: 93306; 94060; 94726; 94729

== ENCOUNTER 2020-10-16 09:39 | Outpatient (CLI) | payer MEDICARE, SELFPAY ==
--- NOTE | ~2020-10-16 | CT_ITS ---
EXAMINATION: CT lung screening EXAM DATE: 10/16/2020 10:38 INDICATION: Z87.891 - Personal history of nicotine dependence. TECHNIQUE: Spiral low dose CT of the chest without contrast. Axial, coronal and sagittal images were reviewed. The dose-length product (DLP) for this examination was 62.71 mGy-cm. The exposure was ta ilored according to patient size (auto mA exposure control), and iterative reconstruction (ASIR) was used as additional dose reduction technique. Comparison is made to prior examination from 11/04/2018. FINDINGS: Interval development of spiculated right upper lobe 8 x 10 mm nodule suspicious for primar y lung cancer. There is a new nodule in the right lower lobe measuring 6 x 6 mm. There is scattered postinfectious residua. Moderate emphysema. Tracheobronchial tree is patent. The re is no mediastinal, hilar or axillary lymphadenopathy. Small pericardial effusion. There is no p neumothorax. Heart normal in size. There is mild coronary arterial calcification, arterial sclero sis. There is 10 mm hypodense lesion in the central aspect of the liver probably a cyst. There is mi ld thoracic spondylosis without osteoblastic or osteolytic lesions identified. IMPRESSION: Lung-RADS category 4B; recommend PET/CT an/or tissue sampling of the right apical spicula tarsha nodule. Phoned Colton Fajardo, LILLIAN [phone], I left a message at 10/17/2020 08:56 CDT with the L RADS categor y for this exam, requested them to review the report. Reviewed, dictated and finalized at location B. IMPRESSION: Lung-RADS category 4B; recommend PET/CT an/or tissue sampling of th e right apical spiculated nodule. Phoned Colton Fajardo, FISHING GEAR MECHANIC [phone], I left a message at 10/17/2020 08:56 CDT w ith the L RADS category for this exam, requested them to review the report.
== END 2020-10-16 09:40 | disposition home or self-care (01) ==
PROVIDERS: PCP Family Medicine; Visit Provider Nurse Practitioner Family
DX: Z12.2 Encounter for screening for malignant neoplasm of respiratory organs (principal); Z87.891 Personal history of nicotine dependence
CPT/HCPCS: 71271

== ENCOUNTER 2020-10-29 10:19 | Outpatient (CLI) | payer MEDICARE, SELFPAY ==
--- NOTE | ~2020-10-29 | PE_ITS ---
EXAMINATION: PET skull to mid thigh DATE: 10/29/2020 12:43 INDICATION: Lung nodule. TECHNIQUE: Blood glucose level was 88 mg/dL. 10.655 mCi of 18-fluorodeoxyglucose (18-FDG) was adminis tered i.v. Low dose computed tomography (CT) images were acquired from the base of the brain to the p roximal thighs for attenuation correction and anatomic localization. Automated exposure control was e mployed. Dose-length product (DLP) was 315 mGy-cm. Positron emission tomography (PET) images were acq uired in the same distribution. COMPARISON: Chest CT 10/16/2020, 11/04/18 FINDINGS: Head/neck: There are no pathologically enlarged lymph nodes. There is increased activity in the glott is without CT correlate, likely physiologic. Chest: There is mild emphysema. There is mild scarring at the lung apices without increased activity. There is a 9 mm nodule in right upper lobe with maximum SUV of 2.4. There is a 15 mm nodule in left upper lobe with maximum SUV of 3.8, new from 10/16/20, likely infection. There is a 4 mm nodule in lef t upper lobe without increased activity. No pleural effusion. The heart size is normal. There are cor onary artery calcifications. No pericardial effusion. There are normal-sized lymph nodes in the aorti copulmonary window with maximum SUV of 3.8, likely reactive. Abdomen/pelvis/proximal thighs: The liver, gallbladder, spleen, pancreas, adrenal glands, and left ki dney are normal. There is mild atrophy of right kidney. There are approximately 3 stones in right kid zoe measuring up to 5 mm. 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 There are no dilat ed loops of bowel. There is diverticulosis of the colon without evidence of diverticulitis. There are no dilated loops of bowel. The appendix is normal. There are no pathologically enlarged lymph nodes. There is no free intraperitoneal fluid. There is severe lumbar spondylosis. IMPRESSION: 1. 9 mm right upper lobe pulmonary nodule with maximum SUV of 2.4, new from 11/04/2018. This finding is indeterminate for malignancy. CT-guided biopsy is recommended. Reviewed, dictated and finalized at location A. IMPRESSION: 1. 9 mm right upper lobe pulmonary nodule with maximum SUV of 2.4, new from 11/04. This finding is indeterminate for malignancy. CT-guided biopsy is recomm ended.
[2020-10-29 10:48] LABS: Glucose Point of Care 88 mg/dl (65-105)
== END 2020-10-29 10:20 | disposition home or self-care (01) ==
LOC: ANHIMG 10:23
PROVIDERS: PCP Family Medicine; Visit Provider Nurse Practitioner Family
DX: R91.1 Solitary pulmonary nodule (principal)
CPT/HCPCS: 78815; 82948; A9552

== ENCOUNTER → 2020-11-23 00:23 | Outpatient (CLI) | payer MEDICARE, SELFPAY ==
[2020-11-23 16:43] LABS: SARS-CoV-2 RNA PCR Negative
== END ==
PROVIDERS: PCP Family Medicine; Visit Provider Nurse Practitioner Family
DX: Z01.812 Encounter for preprocedural laboratory examination (principal); Z20.822 Contact with and (suspected) exposure to COVID-19
CPT/HCPCS: C9803; U0003; U0005

== ENCOUNTER 2020-11-27 09:50 | Outpatient (CLI) | payer MEDICARE, SELFPAY ==
[2020-11-25 15:13] VITALS: BMI 21.3
[2020-11-27 10:45] LABS: Basophils Absolute Auto 0.2 K/mm3 (0.0-0.1); Basophils Percent Auto 1.1 % (0.2-1.2); Eosinophils Absolute Auto 2.7 K/mm3 (0-0.3); Eosinophils Percent Auto 19.2 % (0-4.4); Hematocrit 40.4 % (37.0-47.0); Hemoglobin 12.5 g/dL (12.0-15.0); Immature Granulocyte Absolute 0.05 K/mm3 (0.00-0.031); Immature Granulocyte Percent A 0.4 % (0-0.5); Lymphocytes Absolute Auto 3.13 K/mm3 (0.9-3.2); Lymphocytes Percent Auto 22.1 % (18.3-44.2); Mean Corpuscular HGB Conc 30.9 g/dl (32-36); Mean Corpuscular Hemoglobin 29.7 pg (26-34); Mean Platelet Volume 10.9 fl (7.4-10.4); Monocytes Absolute Auto 0.8 K/mm3 (0.1-0.6); Monocytes Percent Auto 5.6 % (2.6-8.5); Neutrophils Absolute Auto 7.3 K/mm3 (1.3-6.7); Neutrophils Percent Auto 51.6 % (45.5-73.1); Platelet Count Result 316 k/mm3 (150-375); Red Blood Count 4.21 M/mm3 (4.2-5.4); Red Cell Distribution Width 13.8 % (11.5-14.5); White Blood Count 14.2 K/mm3 (4.5-10.0)
[2020-11-27 10:57] LABS: INR 0.9; Prothrombin Time 11.7 Seconds (11.1-14.7)
== END 2020-11-27 09:51 | disposition home or self-care (01) ==
LOC: ANHSURGERY 09:59
PROVIDERS: Radiology Diagnostic Radiology; PCP Family Medicine; Visit Provider Nurse Practitioner Family
DX: R91.8 Other nonspecific abnormal finding of lung field (principal); Z51.81 Encounter for therapeutic drug level monitoring; Z79.899 Other long term (current) drug therapy
CPT/HCPCS: 36415; 85025; 85610

== ENCOUNTER 2020-12-24 10:26 | Outpatient (CLI) | payer MEDICARE, SELFPAY ==
--- NOTE | ~2020-12-24 | US_ITS ---
EXAMINATION: US abdomen complete EXAM DATE: 12/24/2020 11:35 INDICATION: Abdominal pain with nausea and vomiting, progressing during last 4 months. Indeterminate right upper lobe nodule. TECHNIQUE: Multiple grayscale and Doppler images of the complete abdomen were obtained (by a technolo gist who performed the scan) and subsequently reviewed. Correlation is made to ultrasound kidneys 06/06, PET/CT 10/29/2020. FINDINGS: Mild scattered aortic atherosclerosis and ectasia, mildly dilated distally at 3.1 cm. Visualized por tion IVC is patent. Region of pancreatic head appears slightly less echogenic than the other pancre atic parenchyma, region measuring about 2 cm. This could be different amount of fat infiltration comp ared to the other portions of pancreas but further evaluation with MRI or CT pre and postcontrast burton uld be made to evaluate possibility of mass. The liver has normal echogenicity and contour. There are no focal liver lesions identified. There is no evidence of intrahepatic biliary duct dilation. Portal venous flow was seen in the hepatopedal , normal direction and has normal Doppler waveform. Common bile duct measures 4-5 mm, which is normal. Multiple gallstones are present, and the gallbladd er wall is mildly thickened. No appreciable pericholecystic fluid or sonographic Graham's sign was de monstrated. This could indicate interstitial edema, chronic liver disease or chronic cholecystitis. Technologist performing exam reports patient did not demonstrate sonographic Graham's sign. Please note that this sign is less reliable in patients who have received pain medication. Right kidney: There is normal contour and echogenicity. There is some renal cortical thinning. It genet sures 7.8 x 2.4 x 3.0 centimeters. There are no focal renal lesions identified. There is no hydr onephrosis. Left kidney: There is normal contour and echogenicity. It measures 11.9 x 5.5 x 5.2 centimeters. T here are no focal renal lesions identified. There is no hydronephrosis. The spleen measures 8 centimeters and is morphologically normal. IMPRESSION: 1. Possible pancreatic head mass versus variation in amount of fat infiltration (PET CT negative in this region in October). MRI or CT without and with contrast recommended. 2. Cholelithiasis. Gallbladder wall thickening. Chronic cholecystitis? Consider HIDA scan. 3. Mild abdominal aortic atherosclerosis and ectasia. 4. Mild right renal atrophy. Reviewed, dictated and finalized at location A. IMPRESSION: 1. Possible pancreatic head mass versus variation in amount of fat infiltratio n (PET CT negative in this region in October). MRI or CT without and with contras t recommended. 2. Cholelithiasis. Gallbladder wall thickening. Chronic cholecystitis? Conside r HIDA scan. 3. Mild abdominal aortic atherosclerosis and ectasia. 4. Mild right renal atrophy.
== END 2020-12-24 10:27 | disposition home or self-care (01) ==
PROVIDERS: PCP Family Medicine; Visit Provider Nurse Practitioner
DX: R10.9 Unspecified abdominal pain (principal); R93.3 Abnormal findings on diagnostic imaging of other parts of digestive tract; K80.20 Calculus of gallbladder without cholecystitis without obstruction; I70.0 Atherosclerosis of aorta; I77.811 Abdominal aortic ectasia; N26.1 Atrophy of kidney (terminal)
CPT/HCPCS: 76700

== ENCOUNTER 2021-01-07 15:53 | Outpatient (CLI) | payer MEDICARE, SELFPAY ==
--- NOTE | ~2021-01-07 | CT_ITS ---
EXAMINATION: CT abdomen pelvis wo con DATE: 01/07/2021 16:46 INDICATION: Possible pancreatic head mass seen on recent ultrasound. TECHNIQUE: Computed tomography (CT) of the abdomen and pelvis was performed without intravenous contr ast. The dose-length product was 248.11 mGy-cm. Contrast could not be administered due to abnormally low GFR. Patient is not on dialysis. COMPARISON: Ultrasound dated 12/24/[address] dated 06/05/2019 FINDINGS: There is emphysema. There is left lower lobe atelectasis/scarring. Heart size normal. Small pericardial effusion. No significant pleural effusion. Stable infrarenal abdominal aortic aneurysm m easuring 3.1 cm. There is right renal atrophy. There are multiple nonobstructing right renal stones. No definitive pancreatic mass is identified, although evaluation limited without contrast. There is a 1.6 cm hypodense mass of the right hepatic lobe with fluid density, compatible with cysts. The splee n, adrenal glands and left kidney are unremarkable. No lymphadenopathy. Colonic diverticulosis withou t evidence for diverticulitis. Gallbladder is present. No significant lymphadenopathy. IMPRESSION: 1. Evaluation for pancreatic mass limited due to noncontrast study. Contrast not administered due to low GFR. 2: Right renal atrophy with nonobstructing right nephrolithiasis. 3: Emphysema. 4: Small pericardial effusion. 5: Infrarenal abdominal aortic aneurysm is stable measuring 3.1 cm. Reviewed, dictated and finalized at location A. IMPRESSION: 1. Evaluation for pancreatic mass limited due to noncontrast study. Contrast no t administered due to low GFR. 2: Right renal atrophy with nonobstructing right nephrolithiasis. 3: Emphysema. 4: Small pericardial effusion. 5: Infrarenal abdominal aortic aneurysm is stable measuring 3.1 cm.
[2021-01-07 16:24] LABS: Estimated Glomerular Filt Rate 26
== END 2021-01-07 15:54 | disposition home or self-care (01) ==
PROVIDERS: PCP Family Medicine; Visit Provider Nurse Practitioner
DX: R93.5 Abnormal findings on diagnostic imaging of other abdominal regions, including retroperitoneum (principal); N20.0 Calculus of kidney; N26.1 Atrophy of kidney (terminal); J43.9 Emphysema, unspecified; I31.3 Pericardial effusion (noninflammatory); I71.4 Abdominal aortic aneurysm, without rupture
CPT/HCPCS: 74176

== ENCOUNTER 2021-01-14 10:43 | Outpatient (CLI) | payer MEDICARE, SELFPAY ==
[2021-01-14 11:54] LABS: Basophils Absolute Auto 0.2 K/mm3 (0.0-0.1); Eosinophils Absolute Auto 1.7 K/mm3 (0-0.3); Eosinophils Percent Auto 11.7 % (0-4.4); Hematocrit 37.6 % (37.0-47.0); Hemoglobin 11.8 g/dL (12.0-15.0); Immature Granulocyte Absolute 0.04 K/mm3 (0.00-0.031); Immature Granulocyte Percent A 0.3 % (0-0.5); Lymphocytes Absolute Auto 3.47 K/mm3 (0.9-3.2); Lymphocytes Percent Auto 23.5 % (18.3-44.2); Mean Corpuscular HGB Conc 31.4 g/dl (32-36); Mean Corpuscular Hemoglobin 30.4 pg (26-34); Mean Corpuscular Volume 96.9 fl (80-100); Mean Platelet Volume 10.5 fl (7.4-10.4); Neutrophils Absolute Auto 8.4 K/mm3 (1.3-6.7); Neutrophils Percent Auto 56.5 % (45.5-73.1); Platelet Count Result 295 k/mm3 (150-375); Red Blood Count 3.88 M/mm3 (4.2-5.4); Red Cell Distribution Width 13.8 % (11.5-14.5); White Blood Count 14.8 K/mm3 (4.5-10.0)
[2021-01-14 12:12] LABS: Alanine Aminotransferase 15 U/L (4-35); Alkaline Phosphatase 30 U/L (38-126); Anion Gap 8 mmol/L (8-16); Aspartate Amino Transferase 21 U/L (14-36); Bilirubin,Total 0.7 mg/dL (0.2-1.3); Blood Urea Nitrogen 23 mg/dL (7-17); CRP 1.3 mg/dL (<1.0); Calcium 9.6 mg/dL (8.4-10.2); Carbon Dioxide 28 mmol/L (22-30); Chloride 104 mmol/L (98-107); Estimated Glomerular Filt Rate 29; Glucose 109 mg/dL (65-110); Lactate Dehydrogenase 432 U/L (313-618); Potassium 4.8 mmol/L (3.4-5.0); Sodium 140 mmol/L (137-145)
== END 2021-01-14 10:44 | disposition home or self-care (01) ==
LOC: ANHLAB 11:02
PROVIDERS: PCP Family Medicine; Visit Provider Internal Medicine Hematology & Oncology
DX: D72.119 Hypereosinophilic syndrome [HES], unspecified (principal)
CPT/HCPCS: 36415; 80053; 83520; 83615; 85025; 86140

== ENCOUNTER 2021-01-24 08:36 | Outpatient (CLI) | payer MEDICARE, SELFPAY ==
--- NOTE | ~2021-01-24 | NM_ITS ---
EXAM: NM gastric emptying study DATE: 01/24/2021 13:59 CDT INDICATION: Nausea and vomiting TECHNIQUE: A gastric emptying study was performed using the methodology of Harvey SARKAR, et al. J Nucl Med 2007; 48:568-572. The patient was given a meal consisting of 2 scrambled eggs labeled with 1 mCi Tc-99m sulfur colloid, 2 slices of toast, two packages of jam, and approximately 120 mL of water. Si multaneous anterior and posterior 1-min images of the abdomen were obtained with the patient supine a t multiple time points over a total period of 4 hours. The geometric mean of anterior and posterior v iews was determined, and the percentage retention was calculated for each time point. COMPARISON: None. FINDINGS: Gastric retention of the radiotracer-labeled meal was 57%, 28%, and 4% at the 1-hour, 2-ho ur, and 4-hour time points, respectively. With this technique, apparent rapid gastric emptying is sug gested by <30% gastric retention at 1 hour. Delayed gastric emptying is defined by gastric retention of >90% at 1 hour, >60% retention at 2 hours, or >10% retention at 4 hours. IMPRESSION: 1. Normal gastric emptying. Reviewed, dictated and finalized at location A. IMPRESSION: 1. Normal gastric emptying.
== END 2021-01-24 08:37 | disposition home or self-care (01) ==
LOC: ANHIMG 08:41
PROVIDERS: PCP Family Medicine; Visit Provider Internal Medicine Gastroenterology
DX: R10.13 Epigastric pain (principal); R11.2 Nausea with vomiting, unspecified
CPT/HCPCS: 78264; A9541

== ENCOUNTER 2021-01-27 08:12 | Outpatient (CLI) | payer MEDICARE, SELFPAY ==
--- NOTE | ~2021-01-27 | NM_ITS ---
EXAMINATION: NM meaghan stress w perfusion DATE: 01/27/2021 12:29 INDICATION: Chest pain TECHNIQUE: Rest images were obtained following intravenous administration of 10.33 mCi Tc99m tetrofos min (Myoview). The patient was infused intravenously with Lexiscan (Regadenoson). Then, 31.9 mCi Tc99 m tetrofosmin (Myoview) was administered intravenously, and stress images were obtained. Data was rec onstructed into short axis and horizontal and vertical long axis SPECT images. Gated SPECT images wer e also obtained. COMPARISON: None. FINDINGS: There is no definite reversible or fixed perfusion abnormality to suggest ischemia or infar ction. There is normal left ventricular chamber size, wall motion and ejection fraction. Left ventr icular ejection fraction measures >70%. IMPRESSION: 1. Normal myocardial perfusion at rest and during stress. 2. Left ventricular ejection fraction measuring >70%. Reviewed, dictated and finalized at location A.
--- NOTE | 2021-01-27 08:22 | EST_ITS ---
Patient Info Name: Grecia Peres Age: 80 years : 1940 Gender: Female Ht: 66 in Wt: 130 lbs BSA: 1.66 m2 HR: 62 bpm BP: 152 / 80 mmHg Heart Rhythm: Sinus Rhythm Exam Date: 01/27/2021 9:42 AM Exam Location: [facility] Stress Patient Status: Outpatient Admit Date: 01/27/2021 Staff Ordering Physician: Shoaib Mixon DO Attending Provider: Shoaib Mixon DO Exercise Technologist: Jennifer Munoz CT Exercise Physician: Shoaib Mixon DO Exam Type: CA stress meaghan w NM Study Info A regadenoson stress test was performed. Summary 1. 1. Negative lexiscan stress test for ischemic ST changes by ECG criteria. 2. 2. Baseline hypertension. 3. 3. Nuclear scan to follow and will be reported separately. Please correlate with it. 4. 4. Patient informed of the above results. Protocol: Lexiscan Stress ECG Details Stage: REST Duration (min): 0 min : 59 sec HR (bpm): 63 SBP (mmHg): 152 DBP (mmHg): 80 Stage: REST Duration (min): 9 min : 17 sec HR (bpm): 63 SBP (mmHg): 152 DBP (mmHg): 80 Stage: STAGE 1 Duration (min): 0 min : 59 sec HR (bpm): 78 SBP (mmHg): 175 DBP (mmHg): 77 Stage: RECOVERY Duration (min): 1 min : 0 sec HR (bpm): 88 SBP (mmHg): 175 DBP (mmHg): 77 Stage: RECOVERY Duration (min): 2 min : 0 sec HR (bpm): 87 SBP (mmHg): 175 DBP (mmHg): 77 Stage: RECOVERY Duration (min): 3 min : 0 sec HR (bpm): 81 SBP (mmHg): 175 DBP (mmHg): 77 Stage: RECOVERY Duration (min): 3 min : 16 sec HR (bpm): 82 SBP (mmHg): 131 DBP (mmHg): 73 Rest HR: 63 bpm Peak HR: 89 bpm Rest Sys BP: 152 mmHg Peak Sys BP: 175 mmHg Max Pred HR: 142 bpm % Max Pred HR: 63 % Target HR: 121 bpm Max RPP: 15,575 bpm*mmHg Termination Reason: Completed protocol Cardiac Symptoms: Shortness of breath Total Time: 1 min : 0 sec Rest Onofre BP: 80 mmHg Peak Onofre BP: 77 mmHg Total Dose: 0.4 mg Resting ECG Sinus rhythm. Stress ECG No ST changes. Arrhythmias None. Report Signatures
== END 2021-01-27 08:13 | disposition home or self-care (01) ==
LOC: ANHCARD 08:14
PROVIDERS: PCP Family Medicine; Visit Provider Internal Medicine Cardiovascular Disease
DX: R07.9 Chest pain, unspecified (principal)
CPT/HCPCS: 78452; 93017; A9502; J2785

== ENCOUNTER → 2021-02-03 07:23 | Outpatient (CLI) | payer MEDICARE, SELFPAY ==
[2021-02-03 16:47] LABS: SARS-CoV-2 RNA PCR Negative
== END ==
PROVIDERS: PCP Family Medicine; Visit Provider Internal Medicine Gastroenterology
DX: Z01.812 Encounter for preprocedural laboratory examination (principal); Z20.822 Contact with and (suspected) exposure to COVID-19
CPT/HCPCS: C9803; U0003; U0005

== ENCOUNTER 2021-02-05 00:43 | Day surgery (SDC) | payer MEDICARE, SELFPAY ==
[2021-01-17 15:51] VITALS: BMI 20.9
--- NOTE | 2021-02-04 13:59 | WPDANESEPPF ---
Anes - Initial Pre Proc Eval Procedure: Operation Date: 02/05/21 09:00 Proposed Procedures p Esophagogastroduodenoscopy - Andrew Butler MD Date/Time: 02/04/21 13:59 Surgeon: Andrew Butler MD Pre Op Diagnosis: nausea, epigastric pain Patient Data Age: 80 Gender: F Height: 1.68 m Weight: 59 kg Allergies Allergy/AdvReac Type Severity Reaction Status Date / Time atorvastatin [From Lipitor] Allergy Severe Swelling Verified 02/05/21 07:48 fenofibrate Allergy Severe Swelling Verified 02/05/21 07:48 Home Medications Medication Instructions Recorded Confirmed Type albuterol sulfate 90 mcg/actuation 2 inhalation INHALATION Q4-6H PRN 05/01/19 01/17/21 Rx aerosol inhaler #8.5 gm aspirin 81 mg PO DAILY 06/05/19 01/17/21 History clopidogrel [Plavix] 75 mg PO DAILY 06/05/19 01/17/21 History estradiol 0.5 mg PO DAILY 06/05/19 01/17/21 History fluticasone propionate [Flonase 1 spray INTRANASAL BID PRN 06/05/19 01/17/21 History Allergy Relief] hydroxyzine HCl 25 mg PO TID PRN 06/05/19 01/17/21 History meclizine 12.5 mg PO DAILY PRN 06/05/19 01/17/21 History multivitamin [Daily Multi-Vitamin] 1 tablet PO DAILY 06/05/19 01/17/21 History omeprazole 20 mg PO BID 06/05/19 01/17/21 History ondansetron 4 mg PO Q6H PRN 06/05/19 01/17/21 History propranolol 60 mg PO Q12H 06/05/19 01/17/21 History ropinirole [Requip] 0.25 mg PO HS 06/05/19 01/17/21 History benzonatate 100 mg capsule 100 mg PO BID PRN 03/01/20 01/17/21 History albuterol sulfate 2.5 mg INHALATION QID PRN #360 ml 09/26/20 01/17/21 Rx famotidine 40 mg PO DAILY 11/25/20 01/17/21 History montelukast 10 mg PO PRN PRN 11/25/20 01/17/21 History fluticasone fur. 100 mcg-umeclid 1 inh INHALATION DAILY 30 Days #60 12/11/20 01/17/21 Rx 62.5 mcg-vilant 25 mcg ea inhalat.powder roflumilast 500 mcg tablet 500 mcg PO DAILY #30 tablet 12/12/20 01/17/21 Rx lisinopril 40 mg tablet 40 mg PO DAILY 12/30/20 01/17/21 History amlodipine 5 mg PO DAILY 01/17/21 01/17/21 History Patient hx anesthesia problems: none Family hx anesthesia problems: none Results Review: All pre-operative results and documents have been reviewed as part of the pre-operative evaluation. [facility] Past Medical History Medical History (Updated 01/09/21 @ 11:01 by Andrew Butler MD) AAA (abdominal aortic aneurysm) 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 Abnormal ultrasound Acute renal failure Chronic shortness of breath Congestive heart failure diastolic COPD (chronic obstructive pulmonary disease) Epigastric pain GERD (gastroesophageal reflux disease) History of TIAs x6 HTN (hypertension) Hypoxia Indeterminate pulmonary nodules Nausea and vomiting in adult Nocturnal hypoxemia Restless leg syndrome Shingles x2 across breast Stroke TIA (transient ischemic attack) Surgical History Surgical History H/O bilateral cataract extraction H/O: hysterectomy Family History Family History Mother Hypertension Cerebrovascular accident Sibling Cerebrovascular accident Family history of coronary artery disease Father Family history of chronic obstructive pulmonary disease Social History Social History Social History: the patient is from her who is now . She lives with her granddaughter. She has 2 children. Her son is the power assistant prosecuting attorney. She desires full code but does not want to live on a ventilator is a vegetable. She is originally from [place]. She is a former smoker Smoking packs per day: 1.5 Smoking cigarettes per day: 30.0 Years smoked: 60 Smoking pack-years: 90.00 Smoking status: Former smoker Tobacco type: cigarettes Second hand tobacco smoke exposure: No Smoking end date: 05/03/15 Alcohol intake: never Substance use:
[2021-02-05 07:50] VITALS: BP 131/49; PULSE 71; RESP 16; TEMP 36.5; O2SAT 97
[2021-02-05] MEDS: LACTATED RINGERS 1,000 ML 150 ML IV CONT (08:00)
--- NOTE | 2021-02-05 08:44 | WPDHPUPDATE1 ---
History and Physical Update Update Date/Time: 02/05/21 08:44 History and Physical has been reviewed, including an updated exam of the patient. There are NO changes in the patient's condition. Risks, benefits, and alternatives have been discussed and questions answered. Patient agrees to proceed with procedure.
[2021-02-05 09:03] VITALS: BP 116/55; PULSE 64; RESP 23; O2SAT 93
[2021-02-05 09:13] VITALS: BP 138/53; PULSE 66; RESP 14; O2SAT 95
[2021-02-05 09:23] VITALS: BP 141/86; PULSE 64; RESP 26; O2SAT 92
--- NOTE | 2021-02-05 09:23 | SUR.PHASEII ---
Per Dr. Hammonds, pt can restart plavix tomorrow.
== END 2021-02-05 09:40 | disposition home or self-care (01) ==
PROVIDERS: PCP Family Medicine; Visit Provider Internal Medicine Gastroenterology
PROC: 0DJ08ZZ Inspection of Upper Intestinal Tract, Via Natural or Artificial Opening Endoscopic (ICD-10-PCS; CPT 43235; principal; 2021-02-05 09:00)
DX: K44.9 Diaphragmatic hernia without obstruction or gangrene (principal); K29.50 Unspecified chronic gastritis without bleeding; I71.4 Abdominal aortic aneurysm, without rupture; I11.0 Hypertensive heart disease with heart failure; I50.32 Chronic diastolic (congestive) heart failure; K21.9 Gastro-esophageal reflux disease without esophagitis; G25.81 Restless legs syndrome; Z86.73 Personal history of transient ischemic attack (TIA), and cerebral infarction without residual deficits; Z79.51 Long term (current) use of inhaled steroids; Z79.82 Long term (current) use of aspirin; Z79.02 Long term (current) use of antithrombotics/antiplatelets; Z87.891 Personal history of nicotine dependence
CPT/HCPCS: 43239; 88305; C9803; J2001; J2704; J7120; U0003; U0005

== ENCOUNTER 2021-09-30 09:56 | Emergency (ER) | payer MEDICARE, SELFPAY ==
[2021-09-30] VITALS (9 sets, daily range): BP systolic 123–139; BP diastolic 61–70; PULSE 65–86; RESP 18–24; TEMP 36.8; O2SAT 93–100
--- NOTE | ~2021-09-30 | XR_ITS ---
EXAMINATION: XR chest 2V DATE: 09/30/2021 10:41 INDICATION: Cough and shortness of breath TECHNIQUE: frontal view of the chest was obtained. COMPARISON: Chest radiograph dated 06/05/[address] dated 10/16/2020 FINDINGS: Chronic mild elevation of the left hemidiaphragm. Mild hyperexpansion of lungs with increased retrost ernal clear space consistent with emphysema better appreciated on prior CT. Mild biapical pleural-par enchymal scarring. Previous noted suspicious right apical nodule is not clearly visualized on the cur rent study. No other airspace opacities, pulmonary edema, pleural effusion or pneumothorax. The cardi omediastinal silhouette is normal. Visualized bones and soft tissues are unremarkable. IMPRESSION: 1. No acute cardiopulmonary disease. 2. Indeterminate pulmonary nodule at the right apex suspicious for primary bronchogenic carcinoma enrrique ntified on prior CT and PET/CT for which follow-up and biopsy had been recommended. This is not ident ified on the current study but if there has been no interval workup at outside institutions would rec ommend repeat low-dose noncontrast chest CT. Reviewed, dictated and finalized at location B. IMPRESSION: 1. No acute cardiopulmonary disease. 2. Indeterminate pulmonary nodule at the right apex suspicious for primary bron chogenic carcinoma identified on prior CT and PET/CT for which follow-up and bi opsy had been recommended. This is not identified on the current study but if t here has been no interval workup at outside institutions would recommend repeat low-dose noncontrast chest CT.
--- NOTE | 2021-09-30 10:21 | ECG_ITS ---
Measurements Intervals [place] Rate: 68 P: 58 [place]: 149 QRS: 48 QRSD: 77 T: 69 QT: 382 QTc: 407 Interpretive Statements SINUS RHYTHM BASELINE ARTIFACT- I, II, AVR, AVL NORMAL ECG Electronically Signed On 09-30-2021 14:31:05 CDT by Shoaib Mixon D.O.
[2021-09-30] MEDS: IPRATROPIUM BR 0.02% INH SOLN 0.5 MG/2.5 ML VIAL INHALATION ×3 (10:35→11:15)
[2021-09-30] MEDS: ALBUTEROL SULFATE NEB 2.5 MG/3 ML INH 5 MG INHALATION ×3 (10:35→11:15)
[2021-09-30 10:38] LABS: Basophils Absolute Auto 0.1 K/mm3 (0.0-0.1); Basophils Percent Auto 0.8 % (0.2-1.2); Eosinophils Absolute Auto 0.5 K/mm3 (0-0.3); Eosinophils Percent Auto 4.1 % (0-4.4); Hematocrit 35.7 % (37.0-47.0); Hemoglobin 11.6 g/dL (12.0-15.0); Immature Granulocyte Absolute 0.21 K/mm3 (0.00-0.031); Immature Granulocyte Percent A 1.6 % (0-0.5); Lymphocytes Absolute Auto 3.41 K/mm3 (0.9-3.2); Mean Corpuscular HGB Conc 32.5 g/dl (32-36); Mean Corpuscular Hemoglobin 30.2 pg (26-34); Mean Platelet Volume 9.6 fl (7.4-10.4); Monocytes Absolute Auto 0.8 K/mm3 (0.1-0.6); Monocytes Percent Auto 6.3 % (2.6-8.5); Neutrophils Percent Auto 61.2 % (45.5-73.1); Platelet Count Result 398 k/mm3 (150-375); Red Blood Count 3.84 M/mm3 (4.2-5.4); Red Cell Distribution Width 13.2 % (11.5-14.5); White Blood Count 13.1 K/mm3 (4.5-10.0)
[2021-09-30 10:41] LABS: Appearance Urine Clear (Clear); Bilirubin Urine Negative (Negative); Blood Urine Negative (Negative); Color Urine Yellow (Yellow); Glucose Urine UA Negative (Negative); Ketones Urine Negative (Negative); Leukocyte Esterase Ur Negative LEU/UL (Negative); Nitrate Urine Negative (Negative); Protein Urine Negative (Negative); Specific Grav Ur <= 1.005 (1.001-1.035); Urobilinogen Urine 0.2 mg/dL (<2.0)
[2021-09-30 10:45] LABS: Add Urine Microscopic? NO
[2021-09-30] MEDS: predniSONE 20 MG TABLET 40 MG PO (10:49)
[2021-09-30 10:50] LABS: Alanine Aminotransferase 15 U/L (6-35); Albumin Level 3.7 g/dL (3.5-5.1); Alkaline Phosphatase 68 U/L (38-126); Anion Gap 10 mmol/L (8-16); Aspartate Amino Transferase 27 U/L (14-36); Bilirubin,Total 0.5 mg/dL (0.2-1.3); Blood Urea Nitrogen 27 mg/dL (7-17); Carbon Dioxide 23 mmol/L (22-30); Chloride 101 mmol/L (98-107); Estimated CRCL calculation 14 ml/min; Estimated Glomerular Filt Rate 19; Glucose 104 mg/dL (65-110); Potassium 5.3 mmol/L (3.4-5.0); Sodium 134 mmol/L (137-145)
[2021-09-30 10:58] LABS: Magnesium 1.9 mg/dL (1.6-2.3)
[2021-09-30 11:08] LABS: NT Pro B Type Natriuretic Pept 271 pg/mL (5-100); Troponin I < 0.012 ng/mL (0.000-0.034)
[2021-09-30] MEDS: LACTATED RINGERS 1,000 ML 999 ML IV CONT (11:59)
--- NOTE | 2021-09-30 13:34 | ED.WEAKNESS ---
HPI - Weakness General Chief complaint: Weakness Stated complaint: SOB, weakness Time Seen by Provider: 09/30/21 10:06 History of Present Illness HPI Narrative: 81-year-old female presenting with difficulty breathing, and overall not feeling less energetic, her doctor had taken her off of her prednisone for her COPD exacerbations and since then she feels that the new medicine she is on does not seem to be as effective for preventing her COPD exacerbation. Denies any chest pain, fevers or chills, cough, nausea or vomiting or diarrhea. Related Data Home Medications Medication Instructions Recorded Confirmed aspirin 81 mg chewable tablet 81 mg PO DAILY 06/05/19 07/15/21 clopidogrel 75 mg tablet (Plavix) 75 mg PO DAILY 06/05/19 07/15/21 estradiol 0.5 mg tablet 0.5 mg PO DAILY 06/05/19 07/15/21 fluticasone propionate 50 1 spray intranasal BID PRN Nasal 06/05/19 07/15/21 mcg/actuation nasal Congestion spray,suspension (Flonase Allergy Relief) hydroxyzine HCl 25 mg tablet 25 mg PO TID PRN Itching 06/05/19 07/15/21 meclizine 12.5 mg tablet 12.5 mg PO DAILY PRN Dizziness 06/05/19 07/15/21 multivitamin (Daily Multi-Vitamin) 1 tablet PO DAILY 06/05/19 07/15/21 omeprazole 20 mg capsule,delayed 20 mg PO BID 06/05/19 07/15/21 release ondansetron 4 mg disintegrating 4 mg PO Q6H PRN Nausea 06/05/19 07/15/21 tablet propranolol 60 mg tablet 60 mg PO Q12H 06/05/19 07/15/21 ropinirole 0.25 mg tablet (Requip) 0.25 mg PO HS 06/05/19 07/15/21 benzonatate 100 mg capsule 100 mg PO BID PRN Cough 03/01/20 07/15/21 (Romie Schwarz) famotidine 40 mg tablet 40 mg PO DAILY 11/25/20 07/15/21 montelukast 10 mg tablet 10 mg PO PRN PRN Allergic Reaction 11/25/20 07/15/21 lisinopril 40 mg tablet 40 mg PO DAILY 12/30/20 07/15/21 amlodipine 5 mg tablet 5 mg PO DAILY 01/17/21 07/15/21 Allergies Allergy/AdvReac Type Severity Reaction Status Date / Time atorvastatin [From Lipitor] Allergy Severe Swelling Verified 09/30/21 10:16 fenofibrate Allergy Severe Swelling Verified 09/30/21 10:16 Review of Systems Review of Systems: CONST: Generalized weakness HEENT: No sore throat C/V: No chest pain RESP: Some difficulty breathing GI: No nausea vomiting : No dysuria. M/S: No joint pain. SKIN: No rash. NEURO: [No headache or focal numbness or weakness] PSYCH: [No depression] [facility] Past Medical History Medical History AAA (abdominal aortic aneurysm) 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 Abnormal ultrasound Acute renal failure Chronic shortness of breath Congestive heart failure diastolic COPD (chronic obstructive pulmonary disease) Epigastric pain GERD (gastroesophageal reflux disease) History of TIAs x6 HTN (hypertension) Hypoxia Indeterminate pulmonary nodules Nausea and vomiting in adult Nocturnal hypoxemia Restless leg syndrome Shingles x2 across breast Stroke TIA (transient ischemic attack) Surgical History Surgical History H/O bilateral cataract extraction H/O: hysterectomy Family History Family History Mother Hypertension Cerebrovascular accident Sibling Cerebrovascular accident Family history of coronary artery disease Father Family history of chronic obstructive pulmonary disease Social History Social History Social History: the patient is from her who is now . She lives with her granddaughter. She has 2 children. Her son is the power trademark attorney. She desires full code but does not want to live on a ventilator as a vegetable. She is originally from [place]. She is a former smoker Smoking packs per day: 1.5 Smoking cigarettes per day: 30.0 Years smoked: 60 Smoking pack-years: 90.00 Smoking status: Former smoker Tobacco type: cigarettes Second hand tobacco smoke exposur
== END 2021-09-30 13:52 | disposition home or self-care (01) ==
PROVIDERS: Emergency Provider Emergency Medicine; PCP Family Medicine
DX: J44.1 Chronic obstructive pulmonary disease with (acute) exacerbation (principal); R53.1 Weakness; I11.0 Hypertensive heart disease with heart failure; I50.30 Unspecified diastolic (congestive) heart failure; Z87.891 Personal history of nicotine dependence
CPT/HCPCS: 36415; 71046; 80053; 81003; 83735; 83880; 84484; 85025; 93005; 94640; 96360; 99284; J7120; J7512

== ENCOUNTER 2023-07-21 09:59 | Outpatient (CLI) | payer MEDICARE, SELFPAY ==
--- NOTE | ~2023-07-21 | XR_ITS ---
Clinical Indication: Dyspnea PA and lateral views of the chest: Comparison: 09/30/2021 Findings: There is a hazy airspace opacity at the right apex. Left lung clear.. Cardiomediastinal si lhouette is within normal limits. Bones and soft tissues are unremarkable. Impression: Suspected right upper lobe/apical pneumonia. Follow-up to radiographic resolution is advised. CT can be considered to more definitively exclude pulmonary nodule, as indicated. Reviewed, dictated and finalized at [facility]. Impression: Suspected right upper lobe/apical pneumonia. Follow-up to radiographic resoluti on is advised. CT can be considered to more definitively exclude pulmonary nodu le, as indicated.
== END 2023-07-21 10:00 ==
LOC: MICIMG 10:00
PROVIDERS: PCP Nurse Practitioner Family; Visit Provider Nurse Practitioner Family
DX: R06.09 Other forms of dyspnea (principal)
CPT/HCPCS: 71046

== ENCOUNTER 2023-08-18 13:23 | Outpatient (CLI) | payer MEDICARE, SELFPAY ==
--- NOTE | ~2023-08-18 | XR_ITS ---
Clinical Indication: Cough PA and lateral views of the chest: Comparison: 07/21/2023 Findings: Hazy right apical density is again present. Left lung clear. Cardiomediastinal silhouette is within normal limits. Bones and soft tissues are unremarkable. Impression: Persistent hazy right apical density. Findings could reflect pneumonia or possibly nodule/mass. [place] nued follow-up advised at a minimum. Consider CT to better evaluate morphology of the abnormality. Reviewed, dictated and finalized at location . Impression: Persistent hazy right apical density. Findings could reflect pneumonia or possi nury nodule/mass. Continued follow-up advised at a minimum. Consider CT to rylie r evaluate morphology of the abnormality.
== END 2023-08-18 13:24 ==
PROVIDERS: PCP Nurse Practitioner Family; Visit Provider Nurse Practitioner Family
DX: R05.9 Cough, unspecified (principal); R53.83 Other fatigue
CPT/HCPCS: 71046

== ENCOUNTER 2024-01-20 17:11 | Emergency (ER) | payer MEDICARE, SELFPAY ==
[2024-01-20] VITALS (10 sets, daily range): BP systolic 121–153; BP diastolic 63–83; PULSE 77–86; RESP 18–27; TEMP 36.4–37; O2SAT 93–100
--- NOTE | ~2024-01-20 | XR_ITS ---
XR chest 2V Ordering provider: Ezekiel Sinclair MD History: 83 years Female with . cough, shortness of breath . Comparison: August 18, 2023 FINDINGS: MEDIASTINUM: The cardiac silhouette is not enlarged. LUNGS: The nodule seen in the right upper lobe is again demonstrated with no significant change. No i nfiltrates, effusions or pneumothorax. OTHER: No free air under the diaphragm. IMPRESSION: Mass seen in the right upper lobe unchanged from previous examination. No acute cardiopulmonary pathology. Reviewed, dictated and finalized at location A.
[2024-01-20 21:44] LABS: Basophils Absolute Auto 0.1 K/mm3 (0.0-0.1); Basophils Percent Auto 0.7 % (0.2-1.2); Eosinophils Absolute Auto 0.6 K/mm3 (0-0.3); Eosinophils Percent Auto 3.5 % (0-4.4); Hematocrit 36.7 % (37.0-47.0); Hemoglobin 11.5 g/dL (12.0-15.0); Immature Granulocyte Absolute 0.21 K/mm3 (0.00-0.031); Immature Granulocyte Percent A 1.3 % (0-0.5); Lymphocytes Percent Auto 27.3 % (18.3-44.2); Mean Corpuscular HGB Conc 31.3 g/dl (32-36); Mean Corpuscular Hemoglobin 30.2 pg (26-34); Mean Corpuscular Volume 96.3 fl (80-100); Mean Platelet Volume 10.1 fl (7.4-10.4); Neutrophils Absolute Auto 9.9 K/mm3 (1.3-6.7); Neutrophils Percent Auto 61.2 % (45.5-73.1); Platelet Count Result 402 k/mm3 (150-375); Red Blood Count 3.81 M/mm3 (4.2-5.4); Red Cell Distribution Width 13.8 % (11.5-14.5); White Blood Count 16.1 K/mm3 (4.5-10.0)
--- NOTE | 2024-01-20 21:45 | ECG_ITS ---
Test Date: 2024-01-20 21:59:17 Measurements Intervals [place] Rate: 84 P: 82 [place]: 161 QRS: 7 QRSD: 83 T: 78 QT: 361 QTc: 428 Interpretive Statements SINUS RHYTHM ST-T WAVE ABNORMALITY IN LAT/HIGH LAT LEADS- CONSIDER ISCHEMIA BASELINE ARTIFACT- I, II, AVR, AVL ABNORMAL ECG No previous ECG available for comparison Electronically Signed On 01-21-2024 06:46:41 CDT by Shoaib Mixon D.O.
--- NOTE | 2024-01-20 21:46 | ED.GENADULT ---
HPI - General Adult General Chief complaint: Shortness of Breath/Dyspnea Stated complaint: sob Time Seen by Provider: 01/20/24 21:23 History of Present Illness HPI narrative: 83-year-old female presented to the emergency department for evaluation for worsening exertional shortness of breath. Patient does have history of COPD and had previously been on 2 L of oxygen by nasal cannula at nighttime only but over the course of the last 3 weeks she has had worsening exertional shortness of breath and has required her oxygen at daytime as well. Patient states that she does not want to be admitted and family is comfortable with her wishes Related Data Home Medications Medication Instructions Recorded Confirmed aspirin 81 mg chewable tablet 81 mg PO DAILY 06/05/19 11/03/23 clopidogrel 75 mg tablet (Plavix) 75 mg PO DAILY 06/05/19 11/03/23 estradiol 0.5 mg tablet 0.5 mg PO DAILY 06/05/19 11/03/23 fluticasone propionate 50 1 spray intranasal BID PRN Nasal 06/05/19 11/03/23 mcg/actuation nasal Congestion spray,suspension (Flonase Allergy Relief) hydroxyzine HCl 25 mg tablet 25 mg PO TID PRN Itching 06/05/19 11/03/23 meclizine 12.5 mg tablet 12.5 mg PO DAILY PRN Dizziness 06/05/19 11/03/23 multivitamin (Daily Multi-Vitamin 1 tablet PO DAILY 06/05/19 11/03/23 tablet) ondansetron 4 mg disintegrating 4 mg PO Q6H PRN Nausea 06/05/19 11/03/23 tablet propranolol 60 mg tablet 60 mg PO Q12H 06/05/19 11/03/23 ropinirole 0.25 mg tablet (Requip) 0.25 mg PO HS 06/05/19 11/03/23 benzonatate 100 mg capsule 100 mg PO BID PRN Cough 03/01/20 11/03/23 (Romie Schwarz) famotidine 40 mg tablet 40 mg PO DAILY 11/25/20 11/03/23 montelukast 10 mg tablet 10 mg PO PRN PRN Allergic Reaction 11/25/20 11/03/23 lisinopril 40 mg tablet 40 mg PO DAILY 12/30/20 11/03/23 amlodipine 5 mg tablet 5 mg PO DAILY 01/17/21 11/03/23 prednisone 10 mg tablet 10 mg PO DAILY 07/21/23 11/03/23 Allergies Allergy/AdvReac Type Severity Reaction Status Date / Time atorvastatin [From Lipitor] Allergy Severe Swelling Verified 11/03/23 08:35 fenofibrate Allergy Severe Swelling Verified 11/03/23 08:35 Review of Systems Review of Systems: All systems reviewed & are unremarkable except as noted in HPI and below PMFSH Past Medical History Medical History AAA (abdominal aortic aneurysm) 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 Abnormal ultrasound Acute renal failure Chronic shortness of breath Congestive heart failure diastolic COPD (chronic obstructive pulmonary disease) Epigastric pain GERD (gastroesophageal reflux disease) History of TIAs x6 HTN (hypertension) Hypoxia Indeterminate pulmonary nodules Nausea and vomiting in adult Nocturnal hypoxemia Restless leg syndrome Shingles x2 across breast Stroke TIA (transient ischemic attack) Surgical History Surgical History H/O bilateral cataract extraction H/O: hysterectomy Family History Family History Mother Hypertension Cerebrovascular accident Sibling Cerebrovascular accident Family history of coronary artery disease Father Family history of chronic obstructive pulmonary disease Social History Social History Social History: the patient is from her who is now . She lives with her granddaughter. She has 2 children. Her son is the power civil rights attorney. She desires full code but does not want to live on a ventilator as a vegetable. She is originally from [place]. She is a former smoker Smoking packs per day: 1.5 Smoking cigarettes per day: 30.0 Years smoked: 60 Smoking pack-years: 90.00 Smoking status: Former smoker Tobacco type: cigarettes Second hand tobacco smoke exposure: No Smoking end date: 05/03/15 Alcohol intake: never Substance use: n
[2024-01-20 22:50] LABS: Alanine Aminotransferase 15 U/L (6-35); Albumin Level 4.1 g/dL (3.5-5.1); Alkaline Phosphatase 76 U/L (38-126); Anion Gap 9 mmol/L (4-12); Aspartate Amino Transferase 40 U/L (14-36); Bilirubin,Total 0.5 mg/dL (0.2-1.3); Blood Urea Nitrogen 46 mg/dL (7-17); Calcium 9.9 mg/dL (8.4-10.2); Carbon Dioxide 25 mmol/L (22-30); Chloride 103 mmol/L (98-107); Estimated CRCL calculation 17 ml/min; Estimated Glomerular Filt Rate 21; Glucose 106 mg/dL (65-110); Potassium 4.9 mmol/L (3.4-5.0); Sodium 137 mmol/L (137-145)
[2024-01-20 22:57] LABS: NT Pro B Type Natriuretic Pept 190 pg/mL (19.9-100)
[2024-01-21] VITALS: PULSE 90; RESP 28; O2SAT 98
[2024-01-21] MEDS: AMOXICILLIN/CLAVULANATE K 875-125 MG TAB 1 TABLET PO (00:09)
[2024-01-21] MEDS: AZITHROMYCIN 250 MG TABLET 500 MG PO (00:09)
== END 2024-01-21 00:15 | disposition home or self-care (01) ==
PROVIDERS: Student in an Organized Health Care Education/Training Program; Emergency Provider Emergency Medicine; PCP Nurse Practitioner Family
DX: J18.9 Pneumonia, unspecified organism (principal); I50.30 Unspecified diastolic (congestive) heart failure; I11.0 Hypertensive heart disease with heart failure; J44.9 Chronic obstructive pulmonary disease, unspecified; Z99.81 Dependence on supplemental oxygen; K21.9 Gastro-esophageal reflux disease without esophagitis; G25.81 Restless legs syndrome; Z86.73 Personal history of transient ischemic attack (TIA), and cerebral infarction without residual deficits; Z87.891 Personal history of nicotine dependence; Z98.42 Cataract extraction status, left eye; Z98.41 Cataract extraction status, right eye; Z90.710 Acquired absence of both cervix and uterus; R91.8 Other nonspecific abnormal finding of lung field; R94.31 Abnormal electrocardiogram [ECG] [EKG]
CPT/HCPCS: 36415; 71046; 80053; 83880; 85025; 93005; 99284; A9270

== ENCOUNTER 2024-08-18 04:28 | Emergency (ER) | payer MEDICARE, SELFPAY ==
[2024-08-18] VITALS (7 sets, daily range): BP systolic 132–172; BP diastolic 67–90; PULSE 72–128; RESP 15–27; TEMP 36.1–36.6; O2SAT 92–100
--- NOTE | ~2024-08-18 | CT_ITS ---
CLINICAL INDICATION: Flank pain COMPARISON: 01/07/2021. TECHNIQUE: Multiple contiguous axial images of the abdomen and pelvis were performed without the admi nistration of intravenous contrast The dose-length product (DLP) was 346.95 mGy-cm. Automated exposure control and iterative reconstruction technique were employed. FINDINGS/OBSERVATIONS: Visualized lower thorax: Coarse interstitial lung markings detected bilaterally with bibasilar atelectasis. The remainder of the bilateral lung bases are The heart is borderline enlarged axillary, without pericardial effusion. Small hiatal hernia is present. Liver: Redemonstration of an irregular focus of fluid attenuation within segment 8 of the liver, michale uring 14 x 17 x 26 mm (anterior to posterior x medial to lateral x cranial to caudal dimension). The remainder of the liver demonstrates otherwise homogeneous attenuation and is not enlarged. Gallbladder and biliary system: The gallbladder is distended, and otherwise unremarkable. Pancreas: Limited evaluation of the pancreas secondary to the lack of intravenous contrast. Spleen: The spleen demonstrates homogeneous attenuation and is not enlarged. Kidneys: The right kidney remains atrophic, with multiple 5 mm stones, primarily within the lower messi e. The left kidney is of normal size, and now contains a 4 mm calculus within the interpolar region, possibly vascular in origin. The remainder of the bilateral kidneys are otherwise unremarkable, without hydronephrosis or addition al renal calculi. Adrenal glands: Unremarkable. Gastrointestinal tract: Rectosigmoid diverticulosis without surrounding inflammatory change. Appendix: The air-filled appendix is of normal caliber (axial series, images 112 through 127). Vasculature: Redemonstration of aneurysmal dilatation of the densely calcified infrarenal abdominal aorta measurin g 31 x 32 mm in greatest dimension (at the level of the left renal vein), unchanged from prior. Lymph nodes: Limited evaluation without intravenous contrast. Pelvic structures: The bladder is decompressed, and otherwise unremarkable. The prostate gland is not enlarged. Body wall and musculoskeletal: Small fat-containing umbilical hernia. Age-appropriate degenerative disease within the lower thoracic and lumbosacral spine. IMPRESSION: Interval development of a 4 mm calcification within the left kidney, possibly vascular in origin when compared with 2020 examination. Redemonstration of three 5 mm calculi within the lower pole of the atrophic right kidney, unchanged f rom 2020 Reviewed, dictated and finalized at location A. IMPRESSION: Interval development of a 4 mm calcification within the left kidney, possibly v ascular in origin when compared with 2020 examination. Redemonstration of three 5 mm calculi within the lower pole of the atrophic rig ht kidney, unchanged from 2020
--- OUTSIDE RECORDS SUMMARY | 2024-08-18 05:28 | XMS_ITS | Clinical Summary ---
Author Organization [facility] Tonya rodarte Corbin Address [address] [place] [address] Care Team Providers Care Power Reactor Operator Name Role Phone Hardy Steen MD Primary Care Provider [phone] Allergies No known active allergies Medications albuterol (PROVENTIL,VENTOL IN) 2.5 mg /3 mL (0.083 %) Solution for Nebulization Take 2.5 mg by inhalation one time only. Active fluticasone-umecl idinium-vilantero l (Trelegy Ellipta) 100-62.5-25 mcg Disk with Device Take 1 Puff by inhalation daily. Active albuterol sulfate 90 mcg/Actuation inhaler Take 2 Puffs by inhalation every 6 hours as needed for Shortness of Breath. Active multivitamin (DAILY-CHELSEA) tablet Take 1 Tablet by mouth daily. Active aspirin (ECOTRIN EC) 81 mg Tablet, Delayed Release (E.C.) Take 81 mg by mouth daily. Active roflumilast (Daliresp) 500 mcg Tablet Take by mouth daily. Active estradioL (ESTRACE) 0.5 mg tablet Take 0.5 mg by mouth daily. Active lisinopriL (PRINIVIL) 40 mg tablet Take 40 mg by mouth daily. Active amLODIPine-atorva statin 5-10 mg tablet Take 1 Tablet by mouth daily. Active predniSONE (DELTASONE) 20 mg tablet Take 20 mg by mouth daily. Active meclizine (ANTIVERT) 12.5 mg tablet Take 12.5 mg by mouth 3 times daily as needed for Dizziness. Active propranoloL (INDERAL) 60 mg Tablet Take 60 mg by mouth every 8 hours. Active hydrOXYzine HCL (ATARAX) 25 mg tablet Take 25 mg by mouth 3 times daily as needed for Itching. Active omeprazole (PriLOSEC) 20 mg Capsule, Delayed Release(E.C.) Take 20 mg by mouth daily. Active clopidogreL (PLAVIX) 75 mg Tablet Take 75 mg by mouth. Active ondansetron (ZOFRAN) 4 mg Tablet Take 4 mg by mouth every 8 hours as needed for Nausea/Emesis. Active rOPINIRole (REQUIP) 0.25 mg tablet Take 0.25 mg by mouth 3 times daily. Active famotidine (PEPCID) 20 mg tablet Take 20 mg by mouth 2 times daily. Active montelukast (SINGULAIR) 10 mg tablet Take 10 mg by mouth daily at bedtime. Active GUAIFENESIN ORAL Take by mouth. Active fluticasone propionate (FLONASE) 50 mcg/spray [place], Suspension nasal inhaler Administer 2 Sprays in each nostril daily. Active Active Problems Problem Noted Date Diagnosed Date Leukocytosis (leucocytosis) 01/08/2021 Eosinophilia 01/08/2021 Family History Medical History Relation Name Comments Stroke Mother Relation Name Status Comments Brother Alive Daughter Alive Father Mother Sister 1 Alive Sister 2 Alive Sister 3 Alive Sister 4 Alive Son Alive Social History Tobacco Use Types Packs/Day Years Used Date Smoking Tobacco: Every Day Cigarettes Smokeless Tobacco: Never Comments:quit smoking 5 year s ago Alcohol Use Standard Drinks/Week Comments Yes 0 (1 standard drink = 0.6 oz pur e alcohol) Comments No Sex and Gender Information Value Date Recorded Sex Assigned at Not on file Legal Sex Female 10:44 AM CDT Gender Identity Not on file Sexual Orientation Not on file Last Filed Vital Signs Vital Sign Reading Time Taken Comments Blood Pressure 169/80 01/08/2021 10:28 AM CDT Pulse 66 01/08/2021 10:28 AM CDT Temperature 36.4 C (97.6 F) 01/08/2021 10:28 AM CDT Respiratory Rate - - Oxygen Saturation 94% 01/08/2021 10: 28 AM CDT Inhaled Oxygen Concentration - - Weight 58.9 kg (129 lb 14.4 oz) 021 10:28 AM CDT Height 167.6 cm (5' 6 ) 01/08/2021 10:2 8 AM CDT Body Mass Index 20.97 01/08/2021 10:28 AM CDT Plan of Treatment Health Maintenance Due Date Last Done Comments DTAP/TDAP/TD VACCINES (1 - Tdap) 1961 PNEUMOCOCCAL VACCINE 50+ YEARS (1 of 2 - PCV) 03/04/19 61 ZOSTER VACCINE (1 of 2) 1992 OSTEOPOROSIS SCREENING 2007 RSV VACCINE (60+ or ) (1 - 1-dose 75+ series) 2017 INFLUENZA VACCINE (#1) 2023 Insurance Care Teams Power Reactor Operator Relationship Specialty Start Date End Date Hardy Steen MD [address] [place] [address] PCP - General Family Practice 01/07/21
--- OUTSIDE RECORDS SUMMARY | 2024-08-18 05:28 | XMS_ITS | Encounter Summary ---
Author Organization [facility] Address [facility] [place] [address] Care Team Providers Care Faucets Assembler Name Role Phone Vesta Martinez MD Primary Care Provider [phone] Reason for Visit * Reason Onset Date Comments Preprocedure Call 12/17/2020 Encounter Details Date Type Department Care Team (Late st Contact Info) Description 12/17/2020 Pre-Procedure Call [facility] Interventional Radiology [address] [place], [place] [address] Vesta Martinez MD [address] [place] [address] Preprocedure Call Social History Tobacco Use Types Packs/Day Years Used Date Smoking Tobacco: Former Cigarettes 1.5 30 Smokeless Tobacco: Never Alcohol Use Standard Drinks/Week Comments Not Currently 0 (1 standard drink = 0.6 oz pur e alcohol) Comments No Sex and Gender Information Value Date Recorded Sex Assigned at Not on file Legal Sex Female 6:48 PM CDT Gender Identity Not on file Sexual Orientation Not on file documented as of this encounter Last Filed Vital Signs Vital Sign Reading Time Taken Comments Blood Pressure - - Pulse - - Temperature - - Respiratory Rate - - Oxygen Saturation - - Inhaled Oxygen Concentration - - Weight 59.9 kg (132 lb) 12/17/2020 12:00 AM CDT Height 165.1 cm (5' 5 ) 12/17/2020 12:00 AM CDT Body Mass Index 21.97 12/17/2020 12:00 AM CDT documented in this encounter Plan of Treatment Not on file documented as of this encounter Visit Diagnoses Not on filedocumented in this encounter Additional Health Concerns Infection Onset Date Last Indicated Resolved Time COVID-19 Rule Out 12/16/2020 12/16/202012/17/2020 4:08 PM CDT documented as of this encounter Care Teams Faucets Assembler Relationship Specialty Start Date End Date Vesta Martinez MD [address] [place] [address] PCP - General RADIOLOGY 12/16/20 documented as of this encounter
--- OUTSIDE RECORDS SUMMARY | 2024-08-18 05:28 | XMS_ITS | Clinical Summary ---
Author Organization [facility] Address [address] [place] [address] Care Team Providers Care Sweatband Decorating Machine Operator Name Role Phone Vesta Martinez MD Primary Care Provider [phone] Allergies Active Allergy Reactions Criticality Noted Date Comments Atorvastatin Hives 12/17/2020 Fenofibrate Hives 12/17/2020 Medications albuterol (2.5 MG/3ML) 0.083% nebulizer solution Take 1 mL by nebulization 4 (four) times daily as needed. 1 Active amLODIPine 5 MG tablet Take 5 mg by mouth daily. 1 Active clopidogrel 75 MG tablet Take 75 mg by mouth daily. 1 Active estradiol 0.5 MG tablet Take 0.5 mg by mouth daily. 1 Active famotidine 20 MG tablet Take 20 mg by mouth daily. 1 Active TRELEGY 100-62.5-25 MCG/INH AEROSOL POWDER, BREATH ACTIVATED Inhale 1 puff into the lungs daily. 1 Active ipratropium-alb uterol 0.5-2.5 (3) MG/3ML Solution Take 1 mL by nebulization daily. 1 Active lisinopril 40 MG tablet Take 40 mg by mouth daily. 1 Active montelukast 10 MG tablet Take 10 mg by mouth every evening. 1 Active ondansetron 4 MG tablet Take 4 mg by mouth every 6 (six) hours as needed. 1 Active predniSONE 20 MG tablet Take 20 mg by mouth 2 (two) times daily. 1 Active propranolol 60 MG tablet Take 1 tablet by mouth daily. 1 Active DALIRESP 500 MCG Tab Take by mouth daily. 1 Active rOPINIRole 0.25 MG tablet Take 1 tablet by mouth daily. 1 Active ANORO ELLIPTA 62.5-25 MCG/INH inhaler Inhale 1 puff into the lungs daily. 0 Active Social History Tobacco Use Types Packs/Day Years [...] Mass Index 21.97 12/17/2020 12:00 AM CDT Plan of Treatment Health Maintenance Due Date Last Done Comments DTaP, Tdap and Td Vaccines ( 1 - Tdap) 1961 Zoster Vaccines (1 of 2) 1992 Annual Medicare Wellness Visit 2007 Dexa Scan (General) 2007 RSV Immunization or 60+ Years (1 - 1-dose 75+ series) 2017 Pneumococcal Vaccine: 50+ Ye ars (2 of 2 - PPSV23) 01/24/2021 01/25/2020 COVID-19 Vaccine ( - 2023-2 5 season) 2024 Meningococcal B Vaccine Aged Out No l onger eligible based on patient's age to complete this topic Meningococcal Vaccine Aged Out No krystal soha eligible based on patient's age to complete this topic RSV Immunizations Under 20 Months Aged Out No longer eligible based on patient's age to complete this topic Insurance [facility] AARP Care Teams Sweatband Decorating Machine Operator Relationship Specialty Start Date End Date Vesta Martinez MD [address] [place] [address] PCP - General RADIOLOGY 12/16/20
[2024-08-18 05:53] LABS: Basophils Absolute Auto 0.1 K/mm3 (0.0-0.1); Basophils Percent Auto 0.8 % (0.2-1.2); Eosinophils Absolute Auto 1.7 K/mm3 (0-0.3); Eosinophils Percent Auto 10.6 % (0-4.4); Hematocrit 36.9 % (37.0-47.0); Hemoglobin 11.4 g/dL (12.0-15.0); Immature Granulocyte Absolute 0.12 K/mm3 (0.00-0.031); Immature Granulocyte Percent A 0.7 % (0-0.5); Lymphocytes Absolute Auto 3.66 K/mm3 (0.9-3.2); Lymphocytes Percent Auto 22.6 % (18.3-44.2); Mean Corpuscular HGB Conc 30.9 g/dl (32-36); Mean Corpuscular Hemoglobin 28.6 pg (26-34); Mean Corpuscular Volume 92.7 fl (80-100); Mean Platelet Volume 10.9 fl (7.4-10.4); Monocytes Absolute Auto 1.1 K/mm3 (0.1-0.6); Monocytes Percent Auto 6.5 % (2.6-8.5); Neutrophils Absolute Auto 9.5 K/mm3 (1.3-6.7); Neutrophils Percent Auto 58.8 % (45.5-73.1); Nucleated Red Blood Cells Perc 0.1 % (0.0-0.2); Platelet Count Result 352 k/mm3 (150-375); Red Blood Count 3.98 M/mm3 (4.2-5.4); Red Cell Distribution Width 18.6 % (11.5-14.5); White Blood Count 16.2 K/mm3 (4.5-10.0)
[2024-08-18 06:08] LABS: Alanine Aminotransferase 24 U/L (6-35); Albumin Level 3.7 g/dL (3.5-5.1); Alkaline Phosphatase 85 U/L (38-126); Anion Gap 11 mmol/L (4-12); Aspartate Amino Transferase 29 U/L (14-36); Bilirubin,Total 0.5 mg/dL (0.2-1.3); Blood Urea Nitrogen 31 mg/dL (7-17); Calcium 9.2 mg/dL (8.4-10.2); Carbon Dioxide 23 mmol/L (22-30); Chloride 104 mmol/L (98-107); Estimated CRCL calculation 17 ml/min; Estimated Glomerular Filt Rate 21; Glucose 130 mg/dL (65-110); Lipase 440 U/L (23-300); Potassium 4.4 mmol/L (3.4-5.0); Sodium 138 mmol/L (137-145)
[2024-08-18] MEDS: SODIUM CHLORIDE 0.9% IV 1,000 ML 999 ML IV CONT (06:26)
[2024-08-18 06:34] LABS: Add Urine Microscopic? YES; Appearance Urine Clear (Clear); Bacteria Urine None Seen /hpf; Bilirubin Urine Negative (Negative); Blood Urine Negative (Negative); Color Urine Yellow (Yellow); Glucose Urine UA Negative (Negative); Ketones Urine Negative (Negative); Leukocyte Esterase Ur Negative LEU/UL (Negative); Nitrate Urine Negative (Negative); Non Pathogenic Casts 0-2; Protein Urine Trace mg/dL (Negative); RBC Urine 0-2 /hpf (0-2); Specific Grav Ur 1.008 (1.001-1.035); Squamous Epithelial Cell Urine None Seen /hpf (Few); Urobilinogen Urine 0.2 mg/dL (<2.0); WBC Urine 0-5 /hpf (0-3); pH Urine 6.5 (5.0-9.0)
[2024-08-18] MEDS: MORPHINE SULFATE (*CRX) 2 MG/ML INJ (07:01)
[2024-08-18] MEDS: ONDANSETRON INJ 4 MG/2 ML VIAL (07:01)
--- OUTSIDE RECORDS SUMMARY | 2024-08-18 07:50 | XMS_ITS | Clinical Summary ---
Author Organization [facility] Address [address] [place] [address] Care Team Providers Care Director Hematology Name Role Phone Vesta Martinez MD Primary Care Provider [phone] Allergies Active Allergy Reactions Criticality Noted Date [...] patient's age to complete this topic Insurance [facility] AARP Care Teams Director Hematology Relationship Specialty Start Date End Date Vesta Martinez MD [address] [place] [address] PCP - General RADIOLOGY 12/16/20
--- OUTSIDE RECORDS SUMMARY | 2024-08-18 07:50 | XMS_ITS | Clinical Summary ---
Author Organization [facility] Tonya rodarte Corbni Address [address] [place] [address] Care Team Providers Care Restaurant Inspector Name Role Phone Hardy Steen MD Primary Care Provider [phone] Allergies No known active allergies Medications albuterol [...] mouth. Active fluticasone propionate (FLONASE) 50 mcg/spray [place], Suspension nasal inhaler Administer 2 Sprays in [...] INFLUENZA VACCINE (#1) 2023 Insurance Care Teams Restaurant Inspector Relationship Specialty Start Date End Date Hardy Steen MD [address] [place] [address] PCP - General Family Practice 01/07/21
[2024-08-18] MEDS: ONDANSETRON INJ 4 MG/2 ML VIAL IV PUSH (07:51)
[2024-08-18] MEDS: MORPHINE SULFATE (*CRX) 4 MG/ML INJ IV PUSH (07:51)
--- OUTSIDE RECORDS SUMMARY | 2024-08-18 07:51 | XMS_ITS | Encounter Summary ---
Author Organization [facility] Address [facility] [place] [address] Care Team Providers Care Skilled Nursing Professional Name Role Phone Vesta Martinez MD Primary Care Provider [phone] Reason for Visit * Reason Onset Date Comments Preprocedure Call 12/17/2020 Encounter Details Date Type Department Care Team (Late st Contact Info) Description 12/17/2020 Pre-Procedure Call [facility] Interventional Radiology [address] [place], [place] [address] Vesta Martinez MD [address] [place] [address] Preprocedure Call Social History Tobacco Use [...] documented as of this encounter Care Teams Skilled Nursing Professional Relationship Specialty Start Date End Date Vesta Martinez MD [address] [place] [address] PCP - General RADIOLOGY 12/16/20 documented as of this encounter
--- NOTE | 2024-08-18 08:47 | PCCCNOTE ---
Called to the ED to speak with pt and family regarding assistance at home. I provided a list of home health agencies to the family. They deny any further needs at this time.
--- NOTE | 2024-08-18 10:03 | ED_ITS ---
HPI - Abdominal Pain General Chief Complaint: Abdominal Pain Stated Complaint: Flank pain Time Seen by Provider: 08/18/24 06:05 Related Data Home Medications ?Medication ?Instructions ?Recorded ?Confirmed ?Last Taken ?Type aspirin 81 mg chewable tablet 81 mg PO DAILY 06/05/19 03/08/24 02/05/21 History clopidogrel 75 mg tablet (Plavix) 75 mg PO DAILY 06/05/19 03/08/24 02/02/21 History estradiol 0.5 mg tablet 0.5 mg PO DAILY 06/05/19 03/08/24 02/05/21 History fluticasone propionate 50 1 spray intranasal BID PRN Nasal 06/05/19 03/08/24 02/05/21 History mcg/actuation nasal Congestion spray,suspension (Flonase Allergy Relief) hydroxyzine HCl 25 mg tablet 25 mg PO TID PRN Itching 06/05/19 03/08/24 02/05/21 History meclizine 12.5 mg tablet 12.5 mg PO DAILY PRN Dizziness 06/05/19 03/08/24 02/05/21 History multivitamin (Daily Multi-Vitamin 1 tablet PO DAILY 06/05/19 03/08/24 02/05/21 History tablet) ondansetron 4 mg disintegrating 4 mg PO Q6H PRN Nausea 06/05/19 03/08/24 02/05/21 History tablet propranolol 60 mg tablet 60 mg PO Q12H 06/05/19 03/08/24 02/05/21 History ropinirole 0.25 mg tablet (Requip) 0.25 mg PO HS 06/05/19 03/08/24 02/05/21 History benzonatate 100 mg capsule 100 mg PO BID PRN Cough 03/01/20 03/08/24 02/05/21 History (Romie Schwarz) famotidine 40 mg tablet 40 mg PO DAILY 11/25/20 03/08/24 02/05/21 History montelukast 10 mg tablet 10 mg PO PRN PRN Allergic Reaction 11/25/20 03/08/24 02/05/21 History lisinopril 40 mg tablet 40 mg PO DAILY 12/30/20 03/08/24 02/05/21 History amlodipine 5 mg tablet 5 mg PO DAILY 01/17/21 03/08/24 02/05/21 History prednisone 10 mg tablet 10 mg PO DAILY 07/21/23 03/08/24 Unknown History Allergies Allergy/AdvReac Type Severity Reaction Status Date / Time atorvastatin (From Lipitor) Allergy Severe Swelling Verified 08/18/24 07:58 fenofibrate Allergy Severe Swelling Verified 08/18/24 07:58 [facility] Past Medical History Medical History AAA (abdominal aortic aneurysm) 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 Abnormal ultrasound Acute renal failure Chronic shortness of breath Congestive heart failure diastolic COPD (chronic obstructive pulmonary disease) Epigastric pain GERD (gastroesophageal reflux disease) History of TIAs x6 HTN (hypertension) Hypoxia Indeterminate pulmonary nodules Nausea and vomiting in adult Nocturnal hypoxemia Restless leg syndrome Shingles x2 across breast Stroke TIA (transient ischemic attack) Surgical History Surgical History H/O bilateral cataract extraction H/O: hysterectomy Family History Family History Mother Hypertension Cerebrovascular accident Sibling Cerebrovascular accident Family history of coronary artery disease Father Family history of chronic obstructive pulmonary disease Social History Social History Social History: the patient is from her who is now . She lives with her granddaughter. She has 2 children. Her son is the power finance attorney. She desires full code but does not want to live on a ventilator as a vegetable. She is originally from [facility]. She is a former smoker Smoking packs per day: 1.5 Smoking cigarettes per day: 30.0 Years smoked: 60 Smoking pack-years: 90.00 Smoking status: Former smoker Tobacco type: cigarettes Second hand tobacco smoke exposure: No Smoking end date: 05/03/15 Alcohol intake: never Substance use: never Substance use type: does not use Living arrangements: with family Occupation/Education: retired Gender identity (if verbalized by the patient): Female Sexual Orientation (if Verbalized by the Patient): Straight or Heterosexual Spiritual care concerns: No Agree to blood products: Yes Course Vital Signs Vital signs: Vital Signs Temperature 36.1 C L 08/18/24 05:47 Pulse Rate 91 08/18/24 05:47 Respiratory Rate 17 08/18/24 05:47 Blood Pressure 172/84 H 08/18/24 05:47 Pulse Oximetry 92 08/18/24 05:47 Oxygen Delivery Nasal Cannula 08/18/24 05:47 Oxygen Flow Rate 2 08/18/24 05:47 Temperature 36.6 C 08/18/24 09:32 Pulse Rate 99 08/18/24 09:32 Respiratory Rate 16 08/18/24 09:32 Blood Pressure 142/82 H 08/18/24 09:32 Pulse Oximetry 98 08/18/24 09:32 Oxygen Delivery Nasal Cannula 08/18/24 05:47 Oxygen Flow Rate 2 08/18/24 05:47 MDM - Abdominal Pain Lab Data 08/18/24 05:44 08/18/24 05:44 Labs: Lab Results 08/18/24 Range/Units 05:44 WBC 16.2 H (4.5-10.0) K/mm3 RBC 3.98 L (4.2-5.4) M/mm3 Hgb 11.4 L (12.0-15.0) g/dL Hct 36.9 L (37.0-47.0) % MCV 92.7 (80-100) fl MCH 28.6 (26-34) pg MCHC 30.9 L (32-36) g/dl RDW 18.6 H (11.5-14.5) % Plt Count 352 (150-375) k/mm3 MPV 10.9 H (7.4-10.4) fl Immature Gran % (Auto) 0.7 H (0-0.5) % Neut % (Auto) 58.8 (45.5-73.1) % Lymph % (Auto) 22.6 (18.3-44.2) % Darke % (Auto) 6.5 (2.6-8.5) % Eos % (Auto) 10.6 H (0-4.4) % Baso % (Auto) 0.8 (0.2-1.2) % Lymph # (Auto) 3.66 H (0.9-3.2) K/mm3 Darke # (Auto) 1.1 H (0.1-0.6) K/mm3 Eos # (Auto) 1.7 H (0-0.3) K/mm3 Baso # (Auto) 0.1 (0.0-0.1) K/mm3 Abs Immat Gran (auto) 0.12 H (0.00-0.031) K/mm3 Absolute Neuts (auto) 9.5 H (1.3-6.7) K/mm3 Absolute Nucleated RBC 0.020 H (0.0-0.012) K/mm3 Nucleated RBC % 0.1 (0.0-0.2) % Sodium 138 (137-145) mmol/L Potassium 4.4 (3.4-5.0) mmol/L Chloride 104 (98-107) mmol/L Carbon Dioxide 23 (22-30) mmol/L Anion Gap 11 (4-12) mmol/L BUN 31 H D (7-17) mg/dL Creatinine 2.22 H (0.7-1.0) mg/dL Estim Creat Clear Calc 17 ml/min Estimated GFR 21 L (59 - ) Glucose 130 H (65-110) mg/dL Calcium 9.2 (8.4-10.2) mg/dL Total Bilirubin 0.5 (0.2-1.3) mg/dL AST 29 (14-36) U/L ALT 24 (6-35) U/L Alkaline Phosphatase 85 (38-126) U/L Total Protein 7.0 (6.3-8.2) g/dL Albumin 3.7 (3.5-5.1) g/dL Lipase 440 H (23-300) U/L Urine Color Yellow (Yellow) Urine Appearance Clear (Clear) Urine pH 6.5 (5.0-9.0) Ur Specific [place] 1.008 (1.001-1.035) Urine Protein Trace (Negative) mg/dL Urine Glucose (UA) Negative (Negative) mg/dL Urine Ketones Negative (Negative) mg/dL Ur Blood (Man) Negative (Negative) Urine Nitrate Negative (Negative) Urine Bilirubin Negative (Negative) Urine Urobilinogen 0.2 (<2.0) mg/dL Leukocyte Esterase Rfl Negative (Negative) ASAD/UL Urine RBC 0-2 (0-2) /hpf Urine WBC 0-5 (0-3) /hpf Ur Squamous Epith Cells None seen (Few) /hpf Urine Bacteria None seen /hpf Urine Casts 0-2 Imaging Data Radiologist's impression: ITS Impressions Abdomen/Pelvis CT 08/18/24 08:45 IMPRESSION: Interval development of a 4 mm calcification within the left kidney, possibly vascular in origin when compared with 2020 examination. Redemonstration of three 5 mm calculi within the lower pole of the atrophic right kidney, unchanged from 2020 Discharge Plan Discharge Clinical Impression: Acute left flank pain, Back pain Patient Disposition: Home Condition: Stable Instructions: Back Pain (ED) Additional Instructions: continue home medications, follow with your doctor. Patient Language: Yakut Prescriptions: New hydrocodone-acetaminophen 5-325 mg tablet 1 tablet PO Q8H PRN (Reason: pain) Qty: 14 0RF No Action benzonatate [Tessalon Perles] 100 mg capsule 100 mg PO BID PRN (Reason: Cough) lisinopril 40 mg tablet 40 mg PO DAILY prednisone 10 mg tablet 10 mg PO DAILY multivitamin [Daily Multi-Vitamin] Tablet 1 tablet PO DAILY meclizine 12.5 mg Tablet 12.5 mg PO DAILY PRN (Reason: Dizziness) propranolol 60 mg Tablet 60 mg PO Q12H clopidogrel [Plavix] 75 mg Tablet 75 mg PO DAILY ropinirole [Requip] 0.25 mg Tablet 0.25 mg PO HS Rx Instructions: take 1-2 tabs at HS prn Restless leg(s) aspirin 81 mg Tablet,Chewable 81 mg PO DAILY hydroxyzine HCl 25 mg Tablet 25 mg PO TID PRN (Reason: Itching) estradiol 0.5 mg Tablet 0.5 mg PO DAILY ondansetron 4 mg Tablet,Disintegrating 4 mg PO Q6H PRN (Reason: Nausea) fluticasone propionate [Flonase Allergy Relief] 50 mcg/actuation [place],Suspension 1 spray INTRANASAL BID PRN (Reason: Nasal Congestion) famotidine 40 mg tablet 40 mg PO DAILY montelukast 10 mg tablet 10 mg PO PRN PRN (Reason: Allergic Reaction) amlodipine 5 mg tablet 5 mg PO DAILY albuterol sulfate [ProAir HFA] 90 mcg/actuation HFA aerosol inhaler 2 inhalation INHALATION Q4-6H PRN (Reason: shortness of breath or wheezing) Qty: 8.5 6RF albuterol sulfate 2.5 mg /3 mL (0.083 %) solution for nebulization 2.5 mg inhalation Q6H PRN (Reason: shortness of breath or wheezing) Qty: 360 3RF Trelegy Ellipta 100-62.5-25 mcg blister with device 1 inh inhalation DAILY Qty: 60 11RF Rx Instructions: rinse mouth and spit after each use Daliresp 500 mcg tablet 500 mcg PO DAILY Qty: 30 11RF Follow-up/Referrals: Hardy Steen MD [Primary Care Provider] - Time of Disposition: 10:09
--- NOTE | 2024-08-18 10:42 | PC.NURSE ---
Pt & daughter stating pt is too weak to go home, pt not willing to get in w/c. Dr. Mcclendon informed told pt if she can not go home she will have to go to [facility]. Pt responded that she is able to go home, assist to w/c with gait belt
== END 2024-08-18 10:25 | disposition home or self-care (01) ==
PROVIDERS: Emergency Medicine; Emergency Provider Family Medicine; PCP Family Medicine
DX: R10.9 Unspecified abdominal pain (principal); M54.50 Low back pain, unspecified; I50.30 Unspecified diastolic (congestive) heart failure; I11.0 Hypertensive heart disease with heart failure; J44.9 Chronic obstructive pulmonary disease, unspecified; K21.9 Gastro-esophageal reflux disease without esophagitis; G25.81 Restless legs syndrome; Z86.73 Personal history of transient ischemic attack (TIA), and cerebral infarction without residual deficits; Z87.891 Personal history of nicotine dependence; Z87.442 Personal history of urinary calculi; Z90.710 Acquired absence of both cervix and uterus; Z98.42 Cataract extraction status, left eye; Z98.41 Cataract extraction status, right eye; Z79.899 Other long term (current) drug therapy; Z79.82 Long term (current) use of aspirin; N20.0 Calculus of kidney
CPT/HCPCS: 36415; 74176; 80053; 81001; 83690; 85025; 96361; 96374; 96375; 96376; 99284; J2270; J2405; J7030

== ENCOUNTER 2024-09-26 13:43 | Inpatient (IN) | payer MEDICARE, SELFPAY ==
[2024-09-26] VITALS (50 sets, daily range): BP systolic 100–182; BP diastolic 70–162; PULSE 97–146; RESP 17–36; TEMP 36.6–36.7; O2SAT 93–100; BMI 24.4
--- NOTE | ~2024-09-26 | XR_ITS ---
XR chest 1V portable 09/30/2024 05:31 Indication: Presyncope Procedure: AP portable chest Comparison: Comparison to multiple prior studies sequentially, with oldest reviewed study dated 07/20. Findings: Borderline heart size. Mild interstitial edema without significant change. There are bilate ral upper lobe mass, suspicious for malignancy. Recommend correlation with CT chest. Small pleural ef fusions. No pneumothorax. Impression: 1: Stable interstitial edema. Cardiomegaly. 2: Bilateral upper lobe masses, suspicious for primary malignancy or metastatic disease. Recommend co rrelation with CT. Reviewed, dictated and finalized at location A. Impression: 1: Stable interstitial edema. Cardiomegaly. 2: Bilateral upper lobe masses, suspicious for primary malignancy or metastatic disease. Recommend correlation with CT.
--- NOTE | ~2024-09-26 | XR_ITS ---
XR chest 1V portable 09/26/2024 14:44 Indication: Shortness of breath Procedure: AP portable chest Comparison: Comparison to multiple prior studies sequentially, with oldest reviewed study dated 07/20. Findings: There are bilateral upper lobe masses, suspicious for malignancy. There is patchy bilateral airspace consolidation, consistent with superimposed pneumonia. Possible small effusions. No pneumot horax. Impression: 1: Bilateral upper lobe masses, suspicious for malignancy. Recommend correlation with CT chest. 2: Interval development of patchy bilateral airspace disease, compatible with pneumonia. Reviewed, dictated and finalized at location A. Impression: 1: Bilateral upper lobe masses, suspicious for malignancy. Recommend correlatio n with CT chest. 2: Interval development of patchy bilateral airspace disease, compatible with p neumonia.
--- NOTE | 2024-09-26 14:09 | ECG_ITS ---
Test Date: 2024-09-26 14:07:55 Measurements Intervals [place] Rate: 131 P: 0 [place]: 0 QRS: 47 QRSD: 86 T: 32 QT: 292 QTc: 431 Interpretive Statements ATRIAL FIBRILLATION WITH RAPID VENTRICULAR RESPONSE LOW QRS VOLTAGE IN EXTREMITY LEADS [QRS DEFLECTION < 0.5 mV IN LIMB LEADS] POSSIBLE ANTERIOR MYOCARDIAL INFARCTION , PROBABLY OLD [30 ms Q WAVE IN V3/V4, OR R < 0.2 mV IN V4] ABNORMAL RHYTHM ECG Compared to ECG 01/20/2024 21:59:17 ATRIAL FIBRILLATION NOW PRESENT Electronically Signed On 09-26-2024 14:29:20 CDT by Donavon Castillo M.D.
[2024-09-26 14:24] LABS: Basophils Percent Auto 0.2 % (0.2-1.2); Eosinophils Absolute Auto 0.2 K/mm3 (0-0.3); Eosinophils Percent Auto 1.3 % (0-4.4); Hematocrit 40.4 % (37.0-47.0); Immature Granulocyte Absolute 0.17 K/mm3 (0.00-0.031); Lymphocytes Absolute Auto 1.85 K/mm3 (0.9-3.2); Lymphocytes Percent Auto 10.4 % (18.3-44.2); Mean Corpuscular HGB Conc 29.7 g/dl (32-36); Mean Corpuscular Hemoglobin 28.7 pg (26-34); Mean Corpuscular Volume 96.7 fl (80-100); Mean Platelet Volume 11.8 fl (7.4-10.4); Monocytes Absolute Auto 0.7 K/mm3 (0.1-0.6); Monocytes Percent Auto 3.9 % (2.6-8.5); Neutrophils Absolute Auto 14.8 K/mm3 (1.3-6.7); Neutrophils Percent Auto 83.2 % (45.5-73.1); Platelet Count Result 249 k/mm3 (150-375); Red Blood Count 4.18 M/mm3 (4.2-5.4); Red Cell Distribution Width 17.9 % (11.5-14.5); White Blood Count 17.8 K/mm3 (4.5-10.0)
--- OUTSIDE RECORDS SUMMARY | 2024-09-26 14:28 | XMS_ITS | Clinical Summary ---
Author Organization [facility] Tonya rodarte Corbin Address [address] [place] [address] Care Team Providers Care Environmental Safety Specialist Name Role Phone Hardy Steen MD Primary Care Provider + [phone] Allergies No known active allergies Medications albuterol [...] mouth. Active fluticasone propionate (FLONASE) 50 mcg/spray [place], Suspension nasal inhaler Administer 2 Sprays in [...] 10:28 AM CDT Height 167.6 cm (5' 6) 01/08/2021 10:2 8 AM CDT Body Mass [...] INFLUENZA VACCINE (#1) 2023 Insurance Care Teams Environmental Safety Specialist Relationship Specialty Start Date End Date Hardy Steen MD [address] [place] [address] PCP - General Family Practice 01/07/21
[2024-09-26] MEDS: METOPROLOL TARTRATE INJ 5 MG/5 ML VIAL IV PUSH ×2 (14:37→15:56)
[2024-09-26] MEDS: methylPREDNISolone SOD SUCC 125 MG VIAL IV PUSH (14:37)
[2024-09-26 14:38] LABS: Alanine Aminotransferase 32 U/L (6-35); Albumin Level 3.7 g/dL (3.5-5.1); Alkaline Phosphatase 77 U/L (38-126); Anion Gap 9 mmol/L (4-12); Aspartate Amino Transferase 32 U/L (14-36); Bilirubin,Total 0.7 mg/dL (0.2-1.3); Blood Urea Nitrogen 32 mg/dL (7-17); Calcium 9.4 mg/dL (8.4-10.2); Carbon Dioxide 28 mmol/L (22-30); Chloride 107 mmol/L (98-107); Estimated CRCL calculation 23 ml/min; Estimated Glomerular Filt Rate 32; Glucose 198 mg/dL (65-110); Potassium 4.4 mmol/L (3.4-5.0); Sodium 144 mmol/L (137-145)
[2024-09-26] MEDS: SODIUM CHLORIDE 0.9% IV 1,000 ML 999 ML IV CONT (14:38)
[2024-09-26 14:40] LABS: Hypochromasia 1+; Platelet Estimate Adequate (Adequate); Schistocytes None Seen
[2024-09-26 14:50] LABS: Partial Thromboplastin Time 22.6 Seconds (22.3-36.8)
[2024-09-26] MEDS: IPRATROPIUM 0.5 MG/ALBUTEROL SULFATE 2.5 MG AMPUL.NEB 3 ML INHALATION (14:52)
[2024-09-26 14:58] LABS: Alveolar/Arterial O2 Gradient 73.9 mmHg; Base Excess ABG 0.3 mEq/l (+/-2.0); Fractional Inspired Oxygen 28 %; HCO3 ABG 26.4 mEq/l (22.0-26.0); Oxygen Content ABG 16.1 %vol (16.0-22.0); Oxygen Saturation ABG 92.8 % (95.0-100.0); Oxyhemoglobin 92.7 % THb (90.0-100.0); PCO2 ABG 48.6 mmHg (35.0-45.0); PO2 ABG 68.4 mmHg (80.0-100.0); PO2 FiO2 Ratio Arterial Blood 2.44 %; Total Hemoglobin 12.3 g/dL (12.0-18.0); pH ABG 7.353 (7.350-7.450)
[2024-09-26 14:59] LABS: Device NASAL CANNULA; Site Drawn LEFT BRACHIAL
[2024-09-26 15:19] LABS: Lactic Acid Reflex 1.4 mmol/L (0.7-2.0)
[2024-09-26 15:28] LABS: Magnesium 1.9 mg/dL (1.6-2.3)
[2024-09-26 15:41] LABS: NT Pro B Type Natriuretic Pept 4550 pg/mL (19.9-100); Troponin I 0.013 ng/mL (0.000-0.034)
[2024-09-26 15:44] LABS: Influenza A QL RT-PCR Negative (Negative); Influenza B QL RT-PCR Negative (Negative); RSV RNA, RT-PCR Negative (Negative); SARS-CoV-2 RNA PCR Negative (Negative)
[2024-09-26 15:46] LABS: Procalcitonin 0.1 ng/mL
--- NOTE | 2024-09-26 16:50 | ED_ITS ---
HPI - General Adult General Chief complaint: Shortness of Breath/Dyspnea Stated complaint: DYSPNEA Time Seen by Provider: 09/26/24 14:15 History of Present Illness HPI narrative: Patient [age] year old female who presents emergency department chief complaint of shortness of breath. Patient has prior history of COPD also has history of a lung mass that she is not under going count of evaluation or treatment for. The patient states that she normally wears 2 L of nasal cannula oxygen and reports that she had increased her oxygen to 4 L of the patient was given a DuoNeb by EMS prior to arrival the patient also was found to be tachycardic by EMS Related Data Home Medications ?Medication ?Instructions ?Recorded ?Confirmed ?Last Taken ?Type aspirin 81 mg chewable tablet 81 mg PO DAILY 06/05/19 03/08/24 02/05/21 History clopidogrel 75 mg tablet (Plavix) 75 mg PO DAILY 06/05/19 03/08/24 02/02/21 History estradiol 0.5 mg tablet 0.5 mg PO DAILY 06/05/19 03/08/24 02/05/21 History fluticasone propionate 50 1 spray intranasal BID PRN Nasal 06/05/19 03/08/24 02/05/21 History mcg/actuation nasal Congestion spray,suspension (Flonase Allergy Relief) hydroxyzine HCl 25 mg tablet 25 mg PO TID PRN Itching 06/05/19 03/08/24 02/05/21 History meclizine 12.5 mg tablet 12.5 mg PO DAILY PRN Dizziness 06/05/19 03/08/24 02/05/21 History multivitamin (Daily Multi-Vitamin 1 tablet PO DAILY 06/05/19 03/08/24 02/05/21 History tablet) ondansetron 4 mg disintegrating 4 mg PO Q6H PRN Nausea 06/05/19 03/08/24 02/05/21 History tablet propranolol 60 mg tablet 60 mg PO Q12H 06/05/19 03/08/24 02/05/21 History ropinirole 0.25 mg tablet (Requip) 0.25 mg PO HS 06/05/19 03/08/24 02/05/21 History benzonatate 100 mg capsule 100 mg PO BID PRN Cough 03/01/20 03/08/24 02/05/21 History (Tessalon Perles) famotidine 40 mg tablet 40 mg PO DAILY 11/25/20 03/08/24 02/05/21 History montelukast 10 mg tablet 10 mg PO PRN PRN Allergic Reaction 11/25/20 03/08/24 02/05/21 History lisinopril 40 mg tablet 40 mg PO DAILY 12/30/20 03/08/24 02/05/21 History amlodipine 5 mg tablet 5 mg PO DAILY 01/17/21 03/08/24 02/05/21 History prednisone 10 mg tablet 10 mg PO DAILY 07/21/23 03/08/24 Unknown History Allergies Allergy/AdvReac Type Severity Reaction Status Date / Time atorvastatin (From Lipitor) Allergy Severe Swelling Verified 08/18/24 07:58 fenofibrate Allergy Severe Swelling Verified 08/18/24 07:58 Review of Systems 2 Review of Systems: A 10 system review of systems was completed on the patient and is negative except for what is stated in the HPI. Nursing and ancillary documentation was reviewed. [facility] Past Medical History Medical History Abnormal ultrasound Nausea and vomiting in adult Epigastric pain Indeterminate pulmonary nodules Chronic shortness of breath Nocturnal hypoxemia AAA (abdominal aortic aneurysm) 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 TIA (transient ischemic attack) Restless leg syndrome History of TIAs x6 Congestive heart failure diastolic Hypoxia Acute renal failure Stroke Shingles x2 across breast GERD (gastroesophageal reflux disease) COPD (chronic obstructive pulmonary disease) HTN (hypertension) Surgical History Surgical History H/O: hysterectomy H/O bilateral cataract extraction Family History Family History Mother Hypertension Cerebrovascular accident Sibling Cerebrovascular accident Family history of coronary artery disease Father Family history of chronic obstructive pulmonary disease Social History Social History Social History: the patient is from her who is now . She lives with her granddaughter. She has 2 children. Her son is the power privacy attorney. She desires full code but does not want to live on a ventilator as a vegetable. She is originally from [facility]. She is a former smoker Smoking packs per day: 1.5 Smoking cigarettes per day: 30.0 Years smoked: 60 Smoking pack-years: 90.00 Smoking status: Former smoker Tobacco type: cigarettes Second hand tobacco smoke exposure: No Smoking end date: 05/03/15 Alcohol intake: never Substance use: never Substance use type: does not use Living arrangements: with family Occupation/Education: retired Gender identity (if verbalized by the patient): Female Sexual Orientation (if Verbalized by the Patient): Straight or Heterosexual Spiritual care concerns: No Agree to blood products: Yes Exam 2 Narrative: GENERAL: Well-appearing, well-nourished, and in no acute distress. HEAD: Normocephalic, atraumatic. EYES: PERRLA and EOMI. ENT: Nares clear, no rhinorrhea or epistaxis. Mucous membranes moist. NECK: Supple. CHEST: Clear to auscultation. No respiratory distress. HEART: Tachycardic rate and irregular rhythm. No murmur heard. Normal peripheral pulses. ABDOMEN: Soft, nontender, nondistended, normal active bowel sounds. EXTREMITIES: Normal range of motion. No edema. SKIN: Warm, dry, no rash. NEURO: No focal deficits. Alert and oriented x3. PSYCH: Normal mood and affect. Course Vital Signs Vital signs: Vital Signs Temperature 36.7 C 09/26/24 13:59 Pulse Rate 134 H 09/26/24 13:59 Respiratory Rate 34 H 09/26/24 13:59 Blood Pressure 154/100 H 09/26/24 13:59 Pulse Oximetry 93 09/26/24 13:59 Oxygen Delivery Nasal Cannula 09/26/24 13:59 Oxygen Flow Rate 2 09/26/24 13:59 Temperature 36.7 C 09/26/24 13:59 Pulse Rate 101 H 09/26/24 17:16 Respiratory Rate 25 H 09/26/24 17:16 Blood Pressure 140/81 09/26/24 17:16 Pulse Oximetry 97 09/26/24 17:16 Oxygen Delivery Nasal Cannula 09/26/24 14:48 Oxygen Flow Rate 2 09/26/24 14:48 Medical Decision Making MDM Narrative Medical decision making narrative: Differential diagnosis includes COPD exacerbation, pneumonia, pneumonia, CHF, AFib with RVR Chest x-ray showed evidence of a possible lung mass and also evidence of pneumonia. EKG showed atrial fibrillation the patient does report that she has history of tachycardia and takes propanolol reports that she is not sure if she has ever had atrial fibrillation. Patient was initially given Lopressor but heart rate kept continuing to climb back in the 130s 140s patient was given a IV Cardizem bolus and was started on a Cardizem drip and heart rate has improved significantly. Blood cultures were obtained on the patient and the patient will be started on Rocephin and Zithromax Vital Signs Vital Signs: Vital Signs Temperature 36.7 C 09/26/24 13:59 Pulse Rate 134 H 09/26/24 13:59 Respiratory Rate 34 H 09/26/24 13:59 Blood Pressure 154/100 H 09/26/24 13:59 Pulse Oximetry 93 09/26/24 13:59 Oxygen Delivery Nasal Cannula 09/26/24 13:59 Oxygen Flow Rate 2 09/26/24 13:59 Temperature 36.7 C 09/26/24 13:59 Pulse Rate 101 H 09/26/24 17:16 Respiratory Rate 25 H 09/26/24 17:16 Blood Pressure 140/81 09/26/24 17:16 Pulse Oximetry 97 09/26/24 17:16 Oxygen Delivery Nasal Cannula 09/26/24 14:48 Oxygen Flow Rate 2 09/26/24 14:48 Lab Data 09/26/24 14:12 09/26/24 14:12 Labs: Lab Results 09/26/24 09/26/24 09/26/24 Range/Units 14:10 14:12 15:00 WBC 17.8 H (4.5-10.0) K/mm3 RBC 4.18 L (4.2-5.4) M/mm3 Hgb 12.0 (12.0-15.0) g/dL Hct 40.4 (37.0-47.0) % MCV 96.7 (80-100) fl MCH 28.7 (26-34) pg MCHC 29.7 L (32-36) g/dl RDW 17.9 H (11.5-14.5) % Plt Count 249 (150-375) k/mm3 MPV 11.8 H (7.4-10.4) fl Immature Gran % (Auto) 1.0 H (0-0.5) % Neut % (Auto) 83.2 H (45.5-73.1) % Lymph % (Auto) 10.4 L (18.3-44.2) % Parker % (Auto) 3.9 (2.6-8.5) % Eos % (Auto) 1.3 (0-4.4) % Baso % (Auto) 0.2 (0.2-1.2) % Lymph # (Auto) 1.85 (0.9-3.2) K/mm3 Parker # (Auto) 0.7 H (0.1-0.6) K/mm3 Eos # (Auto) 0.2 (0-0.3) K/mm3 Baso # (Auto) 0.0 (0.0-0.1) K/mm3 Abs Immat Gran (auto) 0.17 H (0.00-0.031) K/mm3 Absolute Neuts (auto) 14.8 H (1.3-6.7) K/mm3 Absolute Nucleated RBC 0.000 (0.0-0.012) K/mm3 Band Neutrophils % Not Reportable Nucleated RBC % 0.0 (0.0-0.2) % Platelet Estimate Adequate (Adequate) Hypochromasia 1+ Schistocytes None seen PT 13.0 (11.1-14.7) Seconds INR 1.0 APTT 22.6 (22.3-36.8) Seconds Sodium 144 (137-145) mmol/L Potassium 4.4 (3.4-5.0) mmol/L Chloride 107 (98-107) mmol/L Carbon Dioxide 28 (22-30) mmol/L Anion Gap 9 (4-12) mmol/L BUN 32 H (7-17) mg/dL Creatinine 1.56 H (0.7-1.0) mg/dL Estim Creat Clear Calc 23 ml/min Estimated GFR 32 L (59 - ) Glucose 198 H (65-110) mg/dL Lactic Acid 1.4 (0.7-2.0) mmol/L Calcium 9.4 (8.4-10.2) mg/dL Magnesium 1.9 (1.6-2.3) mg/dL Total Bilirubin 0.7 (0.2-1.3) mg/dL AST 32 (14-36) U/L ALT 32 (6-35) U/L Alkaline Phosphatase 77 (38-126) U/L Troponin I 0.013 (0.000-0.034) ng/mL NT-Pro-B Natriuret Pep 4550 H (19.9-100) pg/mL Total Protein 7.0 (6.3-8.2) g/dL Albumin 3.7 (3.5-5.1) g/dL Procalcitonin 0.1 ng/mL Influenza A (RT-PCR) Negative (Negative) Influenza B (RT-PCR) Negative (Negative) RSV (RT-PCR) Negative (Negative) SARS-CoV-2 RNA (RT-PCR) Negative (Negative) ABG Data ABG results: 09/26/24 14:51 Puncture Site Left brachial ABG pH 7.353 ABG pCO2 48.6 H ABG pO2 68.4 L ABG PO2/FiO2 Ratio 2.44 ABG HCO3 26.4 H ABG O2 Saturation 92.8 L ABG O2 Content 16.1 ABG Base Excess 0.3 A-a Gradient 73.9 Oxyhemoglobin 92.7 Total Hemoglobin 12.3 O2 Delivery Device Nasal cannula O2 Liters/Min 2.0 FiO2 28 Critical Care Time Critical Care Time Critical Care Time: Yes Total Critical Care Time: 35 Discharge Plan Discharge Clinical Impression: COPD exacerbation, Pneumonia, Atrial fibrillation with RVR Patient Disposition: Still a Patient Condition: Stable Patient Language: Spanish Prescriptions: No Action benzonatate [Tessalon Perles] 100 mg capsule 100 mg PO BID PRN (Reason: Cough) lisinopril 40 mg tablet 40 mg PO DAILY prednisone 10 mg tablet 10 mg PO DAILY multivitamin [Daily Multi-Vitamin] Tablet 1 tablet PO DAILY meclizine 12.5 mg Tablet 12.5 mg PO DAILY PRN (Reason: Dizziness) propranolol 60 mg Tablet 60 mg PO Q12H clopidogrel [Plavix] 75 mg Tablet 75 mg PO DAILY ropinirole [Requip] 0.25 mg Tablet 0.25 mg PO HS Rx Instructions: take 1-2 tabs at HS prn Restless leg(s) aspirin 81 mg Tablet,Chewable 81 mg PO DAILY hydroxyzine HCl 25 mg Tablet 25 mg PO TID PRN (Reason: Itching) estradiol 0.5 mg Tablet 0.5 mg PO DAILY ondansetron 4 mg Tablet,Disintegrating 4 mg PO Q6H PRN (Reason: Nausea) fluticasone propionate [Flonase Allergy Relief] 50 mcg/actuation [place],Suspension 1 spray INTRANASAL BID PRN (Reason: Nasal Congestion) famotidine 40 mg tablet 40 mg PO DAILY montelukast 10 mg tablet 10 mg PO PRN PRN (Reason: Allergic Reaction) amlodipine 5 mg tablet 5 mg PO DAILY hydrocodone-acetaminophen 5-325 mg tablet 1 tablet PO Q8H PRN (Reason: pain) Qty: 14 0RF albuterol sulfate [ProAir HFA] 90 mcg/actuation HFA aerosol inhaler 2 inhalation INHALATION Q4-6H PRN (Reason: shortness of breath or wheezing) Qty: 8.5 6RF albuterol sulfate 2.5 mg /3 mL (0.083 %) solution for nebulization 2.5 mg inhalation Q6H PRN (Reason: shortness of breath or wheezing) Qty: 360 3RF Trelegy Ellipta 100-62.5-25 mcg blister with device 1 inh inhalation DAILY Qty: 60 11RF Rx Instructions: rinse mouth and spit after each use Daliresp 500 mcg tablet 500 mcg PO DAILY Qty: 30 11RF Follow-up/Referrals: Hardy Steen MD [Primary Care Provider] - Time of Disposition: 16:52
[2024-09-26] MEDS: dilTIAZem 100 MG/100 ML 100 MG/100 ML BAG IV CONT (16:56)
[2024-09-26] MEDS: dilTIAZem HCl INJ 25 MG/5 ML VIAL 10 MG IV PUSH (16:57)
[2024-09-26] MEDS: AZITHROMYCIN 500 MG/NS 250 ML 500 MG/250 ML BAG 250 MG IVPB (17:54)
--- NOTE | 2024-09-26 18:05 | ECG_ITS ---
Test Date: 2024-09-26 18:14:43 Measurements Intervals [place] Rate: 131 P: 0 [place]: 0 QRS: 18 QRSD: 88 T: -30 QT: 309 QTc: 457 Interpretive Statements ATRIAL FIBRILLATION WITH RAPID VENTRICULAR RESPONSE LOW QRS VOLTAGE IN EXTREMITY LEADS [QRS DEFLECTION < 0.5 mV IN LIMB LEADS] Compared to ECG 09/26/2024 14:07:55 NO SIGNIFICANT CHANGES Electronically Signed On 09-27-2024 16:33:29 CDT by Donavon Castillo M.D.
[2024-09-26] MEDS: ONDANSETRON INJ 4 MG/2 ML VIAL IV PUSH (18:43)
[2024-09-26 19:07] LABS: Troponin I 0.022 ng/mL (0.000-0.034)
--- NOTE | 2024-09-26 19:19 | PC.NURSE ---
RN went in to titrate diltiazem down d/t a bp of 90s/70s. This RN noticed the diltiazem medication release tab in saline bag was not popped. Medication paused and new bag mixed properly and hung going at the original rate of 5mg/hr. Oncoming Rn made aware. Hospitalist called.
--- NOTE | 2024-09-26 19:35 | PC.NURSE ---
Nadine Gonzales called, no new orders at this time.
--- NOTE | 2024-09-26 21:15 | PC.NURSE ---
patient refused CT scan at this time stating maybe later
--- NOTE | 2024-09-26 22:08 | ADMGEN ---
This patient, Grecia Peres, was admitted to IMU Room 203-01. Patient/family oriented to hospital policies and general routines including ID bracelet, bed and alarms, visiting hours, pain management, procedures, bathroom and other care routines, personal items, smoking policy, room service/diet, and visiting hours. Information on how to activate the Rapid Response Team has been discussed. Patient/Family are encouraged to report perceived risks to care and to ask questions if they do not understand what they are told or what they should do.
[2024-09-27] VITALS (29 sets, daily range): BP systolic 130–159; BP diastolic 67–96; PULSE 81–126; RESP 16–22; TEMP 36.4–36.8; O2SAT 93–98
[2024-09-27 00:56] LABS: Troponin I < 0.012 ng/mL (0.000-0.034)
--- NOTE | 2024-09-27 03:12 | PM.IMHP ---
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 Restless leg syndrome History of TIAs x6 Congestive heart failure diastolic Acute renal failure Stroke Shingles x2 across breast GERD (gastroesophageal reflux disease) COPD (chronic obstructive pulmonary disease) HTN (hypertension) Surgical History Surgical History H/O: hysterectomy H/O bilateral cataract extraction Family History Family History Mother Hypertension Cerebrovascular accident Sibling Cerebrovascular accident Family history of coronary artery disease Father Family history of chronic obstructive pulmonary disease Social History Social History (Updated 09/27/24 @ 03:17 by Mindy Enriquez DO) Social History: The patient is from her who is now . She lives with her granddaughter. She has 2 children. She is originally from [facility]. She is a former smoker Code status: DNR/DNI Healthcare power of real estate associate attorney: Son Smoking packs per day: 2 Smoking cigarettes per day: 40.0 Years smoked: 60 Smoking pack-years: 120.00 Smoking status: Former smoker Tobacco type: cigarettes Second hand tobacco smoke exposure: No Smoking end date: 05/03/15 Alcohol intake: never Substance use: never Substance use type: does not use Do You Feel Safe in your Home?: No Lack of Transportation: No Lack of Food: Never True Current Housing: I Have Housing Concerned About Future Housing: No Difficulty Paying Gas/Electric Bills: No Difficulty Paying for Meds: No Currently Unemployed: No Education: High School Diploma/GED Difficulty w/ Childcare or Family Care: No Living arrangements: with family Occupation/Education: retired Gender identity (if verbalized by the patient): Female Sexual Orientation (if Verbalized by the Patient): Straight or Heterosexual Spiritual care concerns: No Agree to blood products: Yes Meds Home Medications and Allergies Home Medications ?Medication ?Instructions ?Recorded ?Confirmed ?Type albuterol sulfate 90 mcg/actuation 2 inhalation inhalation Q4-6H PRN 05/01/19 09/26/24 Rx aerosol inhaler (ProAir HFA) shortness of breath or wheezing #8.5 grams aspirin 81 mg chewable tablet 81 mg PO DAILY 06/05/19 09/26/24 History clopidogrel 75 mg tablet (Plavix) 75 mg PO DAILY 06/05/19 09/26/24 History estradiol 0.5 mg tablet 0.5 mg PO DAILY 06/05/19 09/26/24 History fluticasone propionate 50 2 spray intranasal BID PRN Nasal 06/05/19 09/26/24 History mcg/actuation nasal Congestion spray,suspension (Flonase Allergy Relief) hydroxyzine HCl 25 mg tablet 25 mg PO TID PRN Itching 06/05/19 09/26/24 History meclizine 12.5 mg tablet 12.5 mg PO DAILY PRN Dizziness 06/05/19 09/26/24 History multivitamin (Daily Multi-Vitamin 1 tablet PO DAILY 06/05/19 09/26/24 History tablet) ondansetron 4 mg disintegrating 4 mg PO Q6H PRN Nausea 06/05/19 09/26/24 History tablet propranolol 60 mg tablet 60 mg PO BID 06/05/19 09/26/24 History ropinirole 0.25 mg tablet (Requip) 0.25 mg PO HS 06/05/19 09/26/24 History benzonatate 100 mg capsule 100 mg PO BID PRN Cough 03/01/20 09/26/24 History (Romie Schwarz) famotidine 40 mg tablet 40 mg PO DAILY 11/25/20 09/26/24 History montelukast 10 mg tablet 10 mg PO QPM Allergic Reaction 11/25/20 09/26/24 History lisinopril 40 mg tablet 40 mg PO DAILY 12/30/20 09/26/24 History amlodipine 5 mg tablet 5 mg PO DAILY 01/17/21 09/26/24 History prednisone 10 mg tablet 10 mg PO DAILY 07/21/23 09/26/24 History albuterol sulfate 2.5 mg/3 mL 2.5 mg (3 mL) inhalation Q6H PRN 12/13/23 09/26/24 Rx (0.083 %) solution for nebulization shortness of breath or wheezing #360 mL Trelegy Ellipta 100 mcg-62.5 1 inh inhalation DAILY #60 ea 04/20/24 09/26/24 Rx mcg-25 mcg powder for inhalation (caicfumuwpo-bfyjtwlwj-stwovsba) roflumilast 500 mcg tablet 500 mcg PO DAILY #30 tabs 06/19/24 09/26/24 Rx (Daliresp) hydrocodone 5 mg-acetaminophen 325 1 tablet PO Q8H PRN pain #14 tabs 08/18/24 09/26/24 Rx mg tablet Allergies Allergy/AdvReac Type Severity Reaction Status Date / Time atorvastatin (From Lipitor) Allergy Severe Swelling Verified 08/18/24 07:58 fenofibrate Allergy Severe Swelling Verified 08/18/24 07:58 Vital Signs Vital Signs - 24 hr 09/26/24 13:59 09/26/24 14:15 09/26/24 14:16 Temperature 98.0 F Pulse Rate 134 H 132 H 143 H Respiratory Rate 34 H 17 36 H Blood Pressure 154/100 H 182/162 H Pulse Oximetry 93 Oxygen Delivery Nasal Cannula Oxygen Flow Rate 2 09/26/24 14:26 09/26/24 14:27 09/26/24 14:30 Temperature Pulse Rate 123 H 129 H Respiratory Rate 27 H 30 H Blood Pressure 134/114 H Pulse Oximetry 97 97 97 Oxygen Delivery Nasal Cannula Oxygen Flow Rate 4 09/26/24 14:31 09/26/24 14:37 09/26/24 14:45 Temperature Pulse Rate 122 H 140 H 119 H Respiratory Rate 29 H 29 H Blood Pressure 153/102 H Pulse Oximetry 97 97 Oxygen Delivery Oxygen Flow Rate 09/26/24 14:46 09/26/24 14:48 09/26/24 14:55 Temperature Pulse Rate 120 H 136 H Respiratory Rate 29 H 33 H Blood Pressure 140/127 H Pulse Oximetry 94 95 Oxygen Delivery Nasal Cannula Oxygen Flow Rate 2 09/26/24 15:01 09/26/24 15:15 09/26/24 15:16 Temperature Pulse Rate 123 H 125 H 134 H Respiratory Rate 32 H 36 H 21 H Blood Pressure 155/127 H 159/145 H Pulse Oximetry 100 99 Oxygen Delivery Oxygen Flow Rate 09/26/24 15:31 09/26/24 15:32 09/26/24 15:45 Temperature Pulse Rate 132 H 127 H 119 H Respiratory Rate 30 H 31 H 31 H Blood Pressure 142/103 H Pulse Oximetry 95 97 Oxygen Delivery Oxygen Flow Rate 09/26/24 15:46 09/26/24 15:56 09/26/24 16:00 Temperature Pulse Rate 127 H 119 H 133 H Respiratory Rate 34 H 31 H Blood Pressure 148/90 H Pulse Oximetry 97 97 Oxygen Delivery Oxygen Flow Rate 09/26/24 16:01 09/26/24 16:02 09/26/24 16:15 Temperature Pulse Rate 126 H 135 H 146 H Respiratory Rate 30 H 32 H 28 H Blood Pressure 148/90 H Pulse Oximetry 97 97 97 Oxygen Delivery Oxygen Flow Rate 09/26/24 16:16 09/26/24 16:30 09/26/24 16:32 Temperature Pulse Rate 133 H 124 H 133 H Respiratory Rate 29 H 32 H 29 H Blood Pressure 134/108 H 143/92 H Pulse Oximetry 97 98 97 Oxygen Delivery Oxygen Flow Rate 09/26/24 16:45 09/26/24 16:46 09/26/24 16:56 Temperature Pulse Rate 130 H 127 H 131 H Respiratory Rate 21 H 32 H Blood Pressure 135/111 H 135/111 H Pulse Oximetry 97 97 Oxygen Delivery Oxygen Flow Rate 09/26/24 17:00 09/26/24 17:02 09/26/24 17:16 Temperature Pulse Rate 127 H 102 H 101 H Respiratory Rate 33 H 29 H 25 H Blood Pressure 126/86 140/81 Pulse Oximetry 98 96 97 Oxygen Delivery Oxygen Flow Rate 09/26/24 17:17 09/26/24 17:30 09/26/24 17:32 Temperature Pulse Rate 97 107 H 111 H Respiratory Rate 29 H 27 H 31 H Blood Pressure 138/73 Pulse Oximetry 97 97 Oxygen Delivery Oxygen Flow Rate 09/26/24 17:56 09/26/24 17:57 09/26/24 18:00 Temperature Pulse Rate 121 H 125 H 126 H Respiratory Rate 29 H 29 H 33 H Blood Pressure 153/100 H 145/111 H Pulse Oximetry 98 98 98 Oxygen Delivery Oxygen Flow Rate 09/26/24 18:01 09/26/24 18:01 09/26/24 18:15 Temperature Pulse Rate 132 H 121 H 118 H Respiratory Rate 33 H 26 H Blood Pressure 145/111 H 146/111 H Pulse Oximetry 98 Oxygen Delivery Oxygen Flow Rate 09/26/24 18:16 09/26/24 18:30 09/26/24 18:36 Temperature Pulse Rate 123 H 126 H 125 H Respiratory Rate 28 H 32 H Blood Pressure 116/97 H Pulse Oximetry 98 98 Oxygen Delivery Oxygen Flow Rate 09/26/24 19:05 09/26/24 19:43 09/26/24 20:11 Temperature Pulse Rate 125 H 110 H 107 H Respiratory Rate 22 H 22 H Blood Pressure 105/74 100/76 115/90 Pulse Oximetry 98 97 Oxygen Delivery Oxygen Flow Rate 09/26/24 21:30 09/26/24 21:55 09/26/24 23:55 Temperature 97.8 F Pulse Rate 106 H 107 H 126 H Respiratory Rate 20 20 Blood Pressure 133/82 132/70 148/74 H Pulse Oximetry 98 100 Oxygen Delivery Oxygen Flow Rate 09/27/24 00:00 09/27/24 00:00 09/27/24 00:00 Temperature Pulse Rate 111 H 111 H 126 H Respiratory Rate 20 Blood Pressure 148/74 H Pulse Oximetry 93 Oxygen Delivery Nasal Cannula Oxygen Flow Rate 4 09/27/24 02:00 09/27/24 02:08 Temperature Pulse Rate 107 H 115 H Respiratory Rate Blood Pressure 159/96 H Pulse Oximetry Oxygen Delivery Oxygen Flow Rate Exam Narrative: Weight 68.7 kg BMI 24.4 H&P: Results Labs Labs: Laboratory Tests 09/26/24 14:12 09/26/24 14:12 09/26/24 09/26/24 09/26/24 14:10 14:12 14:51 WBC 17.8 H RBC 4.18 L Hgb 12.0 Hct 40.4 MCV 96.7 MCH 28.7 MCHC 29.7 L RDW 17.9 H Plt Count 249 MPV 11.8 H Immature Gran % (Auto) 1.0 H Neut % (Auto) 83.2 H Lymph % (Auto) 10.4 L [place] % (Auto) 3.9 Eos % (Auto) 1.3 Baso % (Auto) 0.2 Lymph # (Auto) 1.85 [place] # (Auto) 0.7 H Eos # (Auto) 0.2 Baso # (Auto) 0.0 Abs Immat Gran (auto) 0.17 H Absolute Neuts (auto) 14.8 H Absolute Nucleated RBC 0.000 Band Neutrophils % Not Reportable Nucleated RBC % 0.0 Platelet Estimate Adequate Hypochromasia 1+ Schistocytes None seen PT 13.0 INR 1.0 APTT 22.6 Puncture Site Left brachial ABG pH 7.353 ABG pCO2 48.6 H ABG pO2 68.4 L ABG PO2/FiO2 Ratio 2.44 ABG HCO3 26.4 H ABG O2 Saturation 92.8 L ABG O2 Content 16.1 ABG Base Excess 0.3 A-a Gradient 73.9 Oxyhemoglobin 92.7 Total Hemoglobin 12.3 O2 Delivery Device Nasal cannula O2 Liters/Min 2.0 FiO2 28 Sodium 144 Potassium 4.4 Chloride 107 Carbon Dioxide 28 Anion Gap 9 BUN 32 H Creatinine 1.56 H Estim Creat Clear Calc 23 Estimated GFR 32 L Glucose 198 H Lactic Acid Calcium 9.4 Magnesium 1.9 Total Bilirubin 0.7 AST 32 ALT 32 Alkaline Phosphatase 77 Troponin I 0.013 NT-Pro-B Natriuret Pep 4550 H Total Protein 7.0 Albumin 3.7 Procalcitonin 0.1 Influenza A (RT-PCR) Influenza B (RT-PCR) RSV (RT-PCR) SARS-CoV-2 RNA (RT-PCR) 09/26/24 09/26/24 09/27/24 15:00 18:17 00:23 WBC RBC Hgb Hct MCV MCH MCHC RDW Plt Count MPV Immature Gran % (Auto) Neut % (Auto) Lymph % (Auto) [place] % (Auto) Eos % (Auto) Baso % (Auto) Lymph # (Auto) [place] # (Auto) Eos # (Auto) Baso # (Auto) Abs Immat Gran (auto) Absolute Neuts (auto) Absolute Nucleated RBC Band Neutrophils % Nucleated RBC % Platelet Estimate Hypochromasia Schistocytes PT INR APTT Puncture Site ABG pH ABG pCO2 ABG pO2 ABG PO2/FiO2 Ratio ABG HCO3 ABG O2 Saturation ABG O2 Content ABG Base Excess A-a Gradient Oxyhemoglobin Total Hemoglobin O2 Delivery Device O2 Liters/Min FiO2 Sodium Potassium Chloride Carbon Dioxide Anion Gap BUN Creatinine Estim Creat Clear Calc Estimated GFR Glucose Lactic Acid 1.4 Calcium Magnesium Total Bilirubin AST ALT Alkaline Phosphatase Troponin I 0.022 D < 0.012 D NT-Pro-B Natriuret Pep Total Protein Albumin Procalcitonin Influenza A (RT-PCR) Negative Influenza B (RT-PCR) Negative RSV (RT-PCR) Negative SARS-CoV-2 RNA (RT-PCR) Negative Impressions Chest X-Ray 09/26/24 14:56 Impression: 1: Bilateral upper lobe masses, suspicious for malignancy. Recommend correlation with CT chest. 2: Interval development of patchy bilateral airspace disease, compatible with pneumonia. EKG: AFib RVR with other findings All imaging and EKGs personally reviewed and interpreted. And unless stated otherwise agree with radiologic and cardiology interpretation. Assessment and Plan Assessment and plan (1) Atrial fibrillation with RVR: Code(s): I48.91 - Unspecified atrial fibrillation Status: Acute (2) Congestive heart failure: Qualifiers: Heart failure type: diastolic Code(s): I50.9 - Heart failure, unspecified Status: Chronic
[2024-09-27] MEDS: FLUTICASONE/UMECLIDIN/VILANTER 100-62.5-25 MCG ELLIPTA 1 PUFF INHALATION (08:09)
[2024-09-27] MEDS: predniSONE 10 MG TABLET PO (09:11)
[2024-09-27] MEDS: FAMOTIDINE 20 MG TABLET 40 MG PO (09:11)
[2024-09-27] MEDS: amLODIPine BESYLATE 5 MG TABLET PO (09:11)
[2024-09-27] MEDS: lisinopriL 20 MG TABLET 40 MG PO (09:11)
[2024-09-27] MEDS: METOPROLOL TARTRATE 50 MG TAB PO ×2 (09:11→21:58)
[2024-09-27] MEDS: MULTIVITAMINS THERAPEUTIC TAB (*BKC) 1 TABLET PO (09:12)
[2024-09-27] MEDS: ASPIRIN 81 MG CHEWABLE TABLET PO (09:12)
[2024-09-27] MEDS: CLOPIDOGREL BISULFATE 75 MG TABLET PO (09:12)
[2024-09-27] MEDS: ROFLUMILAST 500 MCG TABLET PO (09:16)
[2024-09-27] MEDS: estradioL 0.5 MG TABLET PO (09:16)
[2024-09-27] MEDS: dilTIAZem 100 MG/100 ML 100 MG/100 ML BAG IV CONT (11:37)
[2024-09-27] MEDS: MONTELUKAST SODIUM 10 MG TABLET PO (16:44)
[2024-09-27] MEDS: SODIUM CHLORIDE 0.9% IV 250 ML 10 ML (16:44)
--- NOTE | 2024-09-27 18:01 | PM.IMHP ---
H&P: HPI History of Present Illness Date/Time: 09/27/24 17:15 Chief Complaint: Shortness of breath Narrative: The patient is an 84-year-old female with history of COPD on 2 L of oxygen, admitted for afib with RVR, acute respiratory failure. She reports several weeks of coughing. Wednesday had bleeding to right eye related to strong cough. and Wednesday left eye bled. She was having increased shortness of breath and her son increased oxygen to 4L. Later in the day she became acutely short of breath and so EMS was called In the ED, HR 110-143, afib with RVR. WBC elevated to 17.8, H&H 12/40.4, Plt 249. NT-proBNP 4550. 09/26 Chest X-ray showed 1: Bilateral upper lobe masses, suspicious for malignancy. Recommend correlation with CT chest. 2: Interval development of patchy bilateral airspace disease, compatible with pneumonia. RVP was negative. Family reported that she had shortness of breath after some medication in the ER, and believe it may have been the azithromycin, but it also comes in 250ml fluid. For afib with RVR she was given IV metoprolol, IV dilt, and was started on a diltiazem drip She is DNR/DNI. Pulmonary has previously discussed workup of the lung nodules but she declined. She does not wish to have a CT to evaluate further. 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 Restless leg syndrome History of TIAs x6 Congestive heart failure diastolic Acute renal failure Stroke Shingles x2 across breast GERD (gastroesophageal reflux disease) COPD (chronic obstructive pulmonary disease) HTN (hypertension) Surgical History Surgical History H/O: hysterectomy H/O bilateral cataract extraction Family History Family History Mother Hypertension Cerebrovascular accident Sibling Cerebrovascular accident Family history of coronary artery disease Father Family history of chronic obstructive pulmonary disease Social History Social History (Updated 09/27/24 @ 03:17 by Mindy Enriquez DO) Social History: The patient is from her who is now . She lives with her granddaughter. She has 2 children. She is originally from [place]. She is a former smoker Code status: DNR/DNI Healthcare power of deputy commonwealth's attorney: Son Smoking packs per day: 2 Smoking cigarettes per day: 40.0 Years smoked: 60 Smoking pack-years: 120.00 Smoking status: Former smoker Tobacco type: cigarettes Second hand tobacco smoke exposure: No Smoking end date: 05/03/15 Alcohol intake: never Substance use: never Substance use type: does not use Do You Feel Safe in your Home?: No Lack of Transportation: No Lack of Food: Never True Current Housing: I Have Housing Concerned About Future Housing: No Difficulty Paying Gas/Electric Bills: No Difficulty Paying for Meds: No Currently Unemployed: No Education: High School Diploma/GED Difficulty w/ Childcare or Family Care: No Living arrangements: with family Occupation/Education: retired Gender identity (if verbalized by the patient): Female Sexual Orientation (if Verbalized by the Patient): Straight or Heterosexual Spiritual care concerns: No Agree to blood products: Yes Meds Home Medications and Allergies Home Medications ?Medication ?Instructions ?Recorded ?Confirmed ?Type albuterol sulfate 90 mcg/actuation 2 inhalation inhalation Q4-6H PRN 05/01/19 09/26/24 Rx aerosol inhaler (ProAir HFA) shortness of breath or wheezing #8.5 grams aspirin 81 mg chewable tablet 81 mg PO DAILY 06/05/19 09/26/24 History clopidogrel 75 mg tablet (Plavix) 75 mg PO DAILY 06/05/19 09/26/24 History estradiol 0.5 mg tablet 0.5 mg PO DAILY 06/05/19 09/26/24 History fluticasone propionate 50 2 spray intranasal BID PRN Nasal 06/05/19 09/26/24 History mcg/actuation nasal Congestion spray,suspension (Flonase Allergy Relief) hydroxyzine HCl 25 mg tablet 25 mg PO TID PRN Itching 06/05/19 09/26/24 History meclizine 12.5 mg tablet 12.5 mg PO DAILY PRN Dizziness 06/05/19 09/26/24 History multivitamin (Daily Multi-Vitamin 1 tablet PO DAILY 06/05/19 09/26/24 History tablet) ondansetron 4 mg disintegrating 4 mg PO Q6H PRN Nausea 06/05/19 09/26/24 History tablet propranolol 60 mg tablet 60 mg PO BID 06/05/19 09/26/24 History ropinirole 0.25 mg tablet (Requip) 0.25 mg PO HS 06/05/19 09/26/24 History benzonatate 100 mg capsule 100 mg PO BID PRN Cough 03/01/20 09/26/24 History (Romie Schwarz) famotidine 40 mg tablet 40 mg PO DAILY 11/25/20 09/26/24 History montelukast 10 mg tablet 10 mg PO QPM Allergic Reaction 11/25/20 09/26/24 History lisinopril 40 mg tablet 40 mg PO DAILY 12/30/20 09/26/24 History amlodipine 5 mg tablet 5 mg PO DAILY 01/17/21 09/26/24 History prednisone 10 mg tablet 10 mg PO DAILY 07/21/23 09/26/24 History albuterol sulfate 2.5 mg/3 mL 2.5 mg (3 mL) inhalation Q6H PRN 12/13/23 09/26/24 Rx (0.083 %) solution for nebulization shortness of breath or wheezing #360 mL Trelegy Ellipta 100 mcg-62.5 1 inh inhalation DAILY #60 ea 04/20/24 09/26/24 Rx mcg-25 mcg powder for inhalation (chuhtzxrlkg-lxyzwwivh-hdgxfhoa) roflumilast 500 mcg tablet 500 mcg PO DAILY #30 tabs 06/19/24 09/26/24 Rx (Daliresp) hydrocodone 5 mg-acetaminophen 325 1 tablet PO Q8H PRN pain #14 tabs 08/18/24 09/26/24 Rx mg tablet Allergies Allergy/AdvReac Type Severity Reaction Status Date / Time atorvastatin (From Lipitor) Allergy Severe Swelling Verified 08/18/24 07:58 fenofibrate Allergy Severe Swelling Verified 08/18/24 07:58 Vital Signs Vital Signs - 24 hr 09/26/24 18:15 09/26/24 18:16 09/26/24 18:30 Temperature Pulse Rate 118 H 123 H 126 H Respiratory Rate 26 H 28 H 32 H Blood Pressure 146/111 H 116/97 H Pulse Oximetry 98 98 Oxygen Delivery Oxygen Flow Rate 09/26/24 18:36 09/26/24 19:05 09/26/24 19:43 Temperature Pulse Rate 125 H 125 H 110 H Respiratory Rate 22 H Blood Pressure 105/74 100/76 Pulse Oximetry 98 Oxygen Delivery Oxygen Flow Rate 09/26/24 20:11 09/26/24 21:30 09/26/24 21:55 Temperature Pulse Rate 107 H 106 H 107 H Respiratory Rate 22 H 20 Blood Pressure 115/90 133/82 132/70 Pulse Oximetry 97 98 Oxygen Delivery Oxygen Flow Rate 09/26/24 23:55 09/27/24 00:00 09/27/24 00:00 Temperature 97.8 F Pulse Rate 126 H 111 H 111 H Respiratory Rate 20 20 Blood Pressure 148/74 H Pulse Oximetry 100 93 Oxygen Delivery Nasal Cannula Oxygen Flow Rate 4 09/27/24 00:00 09/27/24 02:00 09/27/24 02:08 Temperature Pulse Rate 126 H 107 H 115 H Respiratory Rate Blood Pressure 148/74 H 159/96 H Pulse Oximetry Oxygen Delivery Oxygen Flow Rate 09/27/24 04:00 09/27/24 04:00 09/27/24 04:00 Temperature Pulse Rate 120 H 110 H 106 H Respiratory Rate Blood Pressure 141/81 H Pulse Oximetry 93 Oxygen Delivery Nasal Cannula Oxygen Flow Rate 4 09/27/24 04:23 09/27/24 06:01 09/27/24 06:08 Temperature 97.8 F Pulse Rate 106 H 111 H 107 H Respiratory Rate 16 Blood Pressure 141/81 H 138/76 Pulse Oximetry 98 Oxygen Delivery Oxygen Flow Rate 09/27/24 08:00 09/27/24 08:00 09/27/24 08:09 Temperature Pulse Rate 105 H 115 H Respiratory Rate Blood Pressure Pulse Oximetry 97 Oxygen Delivery Nasal Cannula Oxygen Flow Rate 4 09/27/24 08:17 09/27/24 09:09 09/27/24 09:11 Temperature 98.3 F Pulse Rate 111 H 112 H Respiratory Rate 20 Blood Pressure 152/87 H Pulse Oximetry 97 95 Oxygen Delivery Nasal Cannula Oxygen Flow Rate 2 09/27/24 10:00 09/27/24 10:00 09/27/24 10:10 Temperature Pulse Rate 110 H 112 H 116 H Respiratory Rate Blood Pressure 144/91 H Pulse Oximetry Oxygen Delivery Oxygen Flow Rate 09/27/24 11:37 09/27/24 12:00 09/27/24 12:03 Temperature 97.5 F L Pulse Rate 108 H 104 H 116 H Respiratory Rate 22 H Blood Pressure 144/91 H 144/78 H Pulse Oximetry 97 Oxygen Delivery Oxygen Flow Rate 09/27/24 14:00 09/27/24 14:29 09/27/24 16:00 Temperature Pulse Rate 101 H 99 98 Respiratory Rate Blood Pressure 144/96 H Pulse Oximetry Oxygen Delivery Oxygen Flow Rate 09/27/24 16:36 Temperature 98.1 F Pulse Rate 109 H Respiratory Rate 18 Blood Pressure 151/93 H Pulse Oximetry 98 Oxygen Delivery Oxygen Flow Rate Exam Narrative: Weight 68.7 kg BMI 24.4 General - Awake and alert. No acute distress Eyes - PERRLA, EOM intact ENT - No thrush, No erythema Neck - No noticeable or palpable swelling Lymph Nodes - No lymphadenopathy Cardiovascular - RRR no m/r/g, no JVD Lungs: Diffuse crackles, decreased. No wheezing, mild use of accessory muscles Skin - Skin warm and dry, no wounds or rashes Abdomen - Normal bowel sounds, abdomen soft and nontender Extremities - No edema, cyanosis or clubbing Musculoskeletal - 5/ strength, normal range of motion, no swollen or erythematous joints. Neurological ? Alert and oriented x 3, CN 2-12 grossly intact. Psych: Normal mood and affect H&P: Results Labs Labs: Cardiac Enzymes 09/26/24 09/27/24 Range/Units 18:17 00:23 Troponin I 0.022 D < 0.012 D (0.000-0.034) ng/mL Assessment and Plan Assessment and plan (1) Atrial fibrillation with RVR: Code(s): I48.91 - Unspecified atrial fibrillation Status: Acute Assessment and Plan: Unclear if new afib and unclear onset. Acute shortness of breath started 09/26. Also had a cough for several weeks first --Continue ASA/Plavix --Improving with diltiazem drip --Cardiology consult --Creatinine clearance too low for therapeutic lovenox --Heparin drip pending cardiology evaluation in case of cardioversion. (2) Congestive heart failure: Qualifiers: Heart failure type: diastolic Code(s): I50.9 - Heart failure, unspecified Status: Chronic Assessment and Plan: In the setting of afib with RVR 40mg IV lasix daily, increase to BID if tolerates (3) Pneumonia: Code(s): J18.9 - Pneumonia, unspecified organism Status: Acute Assessment and Plan: Flu/RSV/Covid negative May have had a viral infection give cough vs chf exacerbation. Now pneumonia on chest x-ray. Patient declined CT for now. Does not wish to work up lung nodules --Continue Ceftiraxone --Stop IV azithromycin, can trial again if no changes overnight (4) Leukocytosis: Code(s): D72.829 - Elevated white blood cell count, unspecified Status: Acute Assessment and Plan: Elevated in the setting of pneumonia Check CRP, ESR, follow WBC Quality VTE Prophylaxis VTE prophylaxis: pharmacologic ordered Hospitalist MIPS Advance Care Plan I have confirmed that the patient's Advanced Care Plan is present, code status is documented, or surrogate decision maker is listed in patient medical record.: Yes Medication Reconciliation I have utilized all available resources to obtain, update and review the patients current medications (includes all prescriptions, OTC, herbals, cannabis, and nutritional supplements).: Yes
[2024-09-27 21:12] LABS: INR 1.1
[2024-09-27 21:13] LABS: Partial Thromboplastin Time 23.2 Seconds (22.3-36.8)
[2024-09-27] MEDS: BENZONATATE 100 MG CAPSULE 200 MG PO (21:58)
[2024-09-27] MEDS: rOPINIRole HCL 0.25 MG TABLET PO (21:58)
[2024-09-27] MEDS: HEPARIN SOD/D5W 100 UNITS/ML 25,000 UNITS/250 ML BAG 12 UNITS IV CONT (21:59)
[2024-09-28] VITALS (25 sets, daily range): BP systolic 118–145; BP diastolic 59–99; PULSE 86–117; RESP 20; TEMP 36.3–37; O2SAT 96–100
--- NOTE | 2024-09-28 | ECHO_ITS ---
Patient Info Name: Grecia Peres Age: 84 years : 1940 Gender: Female Ht: 66 in Wt: 151 lbs BSA: 1.79 m2 HR: 105 bpm BP: 121 / 88 mmHg Heart Rhythm: Atrial Fibrillation Technical Quality: Good Exam Date: 09/28/2024 9:08 AM Patient Status: I Admit Date: 09/27/2024 Exam Type: CA echo doppler color flow Complete two-dimensional, color flow and Doppler transthoracic echocardiogram is performed. Staff Referring Physician: Param Solis MD Electrician Supervisor Substation: Tootie Alaniz Attending Provider: Maria Teresa Hamilton Summary 1. Complete two-dimensional, color flow and Doppler transthoracic echocardiogram is performed. 2. Left ventricular chamber dimension is normal. 3. Left ventricular systolic function is normal, estimated at 60-65. 4. The left ventricular diastolic function is indeterminate as tissue doppler E/e' was not performed. 5. Atrial fibrillation. 6. Right ventricular chamber dimension is mildly enlarged. 7. Right ventricular systolic function is moderately reduced with abnormal TAPSE 0.9 cm. 8. Left atrial chamber dimension is moderately enlarged. 9. Right atrial chamber dimension is moderately enlarged. 10. There is moderate to severe mitral valve regurgitation. 11. There is moderate tricuspid valve regurgitation. 12. Moderate pulmonary hypertension, estimated pulmonary arterial systolic pressure is 52 mmHg. 13. Dilated inferior vena cava with >50% collapse upon inspiration consistent with elevated right atrial pressure, 10 mmHg. Left Ventricle Atrial fibrillation. Left ventricular chamber dimension is normal. Left ventricular systolic function is normal, estimated at 60-65. The left ventricular diastolic function is indeterminate as tissue doppler E/e' was not performed. Right Ventricle Right ventricular chamber dimension is mildly enlarged. Right ventricular systolic function is moderately reduced with abnormal TAPSE 0.9 cm. Left Atria Left atrial chamber dimension is moderately enlarged. Right Atria Right atrial chamber dimension is moderately enlarged. Aortic Valve The aortic valve is trileaflet. There is no aortic valve stenosis. There is no aortic valve regurgitation. Pulmonic Valve There is no pulmonic regurgitation. Mitral Valve There is no mitral valve stenosis. There is moderate to severe mitral valve regurgitation. Tricuspid Valve There is moderate tricuspid valve regurgitation. Moderate pulmonary hypertension, estimated pulmonary arterial systolic pressure is 52 mmHg. Pericardium/Pleural There is no pericardial effusion. Inferior Vena Cava Dilated inferior vena cava with >50% collapse upon inspiration consistent with elevated right atrial pressure, 10 mmHg. Aorta The aortic root size at the sinus of Valsalva is normal. Left Ventricular Outflow Tract Name Value Normal LVOT 2D LVOT Diameter 1.9 cm LVOT Doppler LVOT Peak Velocity 41 cm/s LVOT Peak Gradient 1 mmHg LVOT Mean Gradient 0 mmHg LVOT VTI 7 cm LVOT VTI/AV VTI Ratio 0.5 LVOT Stroke Volume 18 ml LVOT CO 2.0 l/min LVOT CI 1.1 l/min/m2 Mitral Valve Name Value Normal MV Regurgitation Doppler MR Peak Gradient 107 mmHg Tricuspid Valve Name Value Normal TV Regurgitation Doppler TR Peak Velocity 324 cm/s TR Peak Gradient 42 mmHg Estimated PAP/RSVP RA Pressure 10 mmHg <=5 PA Systolic Pressure 52 mmHg <36 RV Systolic Pressure 52 mmHg <36 TV Annular TDI TV Lateral Jelly s' Velocity 7.0 cm/s >=9.5 Aortic Valve Name Value Normal AV Doppler AV Peak Velocity 86 cm/s AV Peak Gradient 3 mmHg AV Mean Gradient 1 mmHg AV VTI 14 cm AV Area (Cont Eq VTI) 1.3 cm2 >=3.0 AV Area (Cont Eq Osmin) 1.3 cm2 AV DI (Osmin) 0.48 AV Regurgitation 2D LVOT Area 2.8 cm2 Ventricles Name Value Normal LV Dimensions 2D/MM IVS Diastolic Thickness (2D) 1.1 cm 0.6-1.0 LVID Diastole (2D) 3.9 cm 3.8-5.2 LVIW Diastolic Thickness (2D) 1.1 cm 0.6-0.9 LVID Systole (2D) 2.8 cm 2.2-3.5 LVOT Diameter 1.9 cm LV Mass (2D Cubed) 138.22 g 67.00-162.00 LV Mass Index (2D Cubed) 77 g/m2 43-95 Relative Wall Thickness (2D) 0.56 <=0.42 LV Fractional Shortening/Ejection Fraction 2D/MM LV Fractional Shortening (2D) 26 % 27-45 LV EF (2D Teichholz) 52 % LV Diastolic Volume (4C MOD) 57 ml LV EF (4C MOD) 57 % LV Diastolic Volume (2C MOD) 51 ml LV EF (2C MOD) 53 % LV Diastolic Volume (BP MOD) 54 ml 46-106 LV Diastolic Volume Index (BP MOD) 30 ml/m2 29-61 LV Systolic Volume (BP MOD) 24 ml 14-42 LV Systolic Volume Index (BP MOD) 13 ml/m2 8-24 LV EF (BP MOD) 55 % 54-74 LV Diastolic Length (4C) 6.8 cm LV Systolic Length (4C) 5.3 cm LV Stroke Volume (4C MOD) 32 ml Atria Name Value Normal LA Dimensions LA Volume (4C A-L) 60 ml LA Volume (BP A-L) 61 ml RA Dimensions RA Systolic Major [place] Length (4C) 5.4 cm 2.2-2.8 RA Area (4C) 22.0 cm2 <=18.0 Report Signatures
[2024-09-28 04:16] LABS: Basophils Percent Auto 0.1 % (0.2-1.2); Eosinophils Percent Auto 0.2 % (0-4.4); Hematocrit 34.2 % (37.0-47.0); Hemoglobin 10.3 g/dL (12.0-15.0); Immature Granulocyte Absolute 0.16 K/mm3 (0.00-0.031); Immature Granulocyte Percent A 0.9 % (0-0.5); Lymphocytes Absolute Auto 2.27 K/mm3 (0.9-3.2); Lymphocytes Percent Auto 13.1 % (18.3-44.2); Mean Corpuscular HGB Conc 30.1 g/dl (32-36); Mean Corpuscular Hemoglobin 29.3 pg (26-34); Mean Corpuscular Volume 97.4 fl (80-100); Mean Platelet Volume 11.4 fl (7.4-10.4); Monocytes Percent Auto 5.7 % (2.6-8.5); Neutrophils Absolute Auto 13.9 K/mm3 (1.3-6.7); Nucleated Red Blood Cells Perc 0.1 % (0.0-0.2); Platelet Count Result 223 k/mm3 (150-375); Red Blood Count 3.51 M/mm3 (4.2-5.4); White Blood Count 17.3 K/mm3 (4.5-10.0)
[2024-09-28 04:26] LABS: Anion Gap 4 mmol/L (4-12); Blood Urea Nitrogen 38 mg/dL (7-17); Calcium 8.9 mg/dL (8.4-10.2); Carbon Dioxide 29 mmol/L (22-30); Chloride 108 mmol/L (98-107); Estimated CRCL calculation 21 ml/min; Estimated Glomerular Filt Rate 28; Glucose 162 mg/dL (65-110); Potassium 4.8 mmol/L (3.4-5.0); Sodium 141 mmol/L (137-145)
[2024-09-28 04:30] LABS: CRP 2.5 mg/dL (<1.0)
[2024-09-28 04:39] LABS: Partial Thromboplastin Time 138.2 Seconds (22.3-36.8)
[2024-09-28 04:52] LABS: Erythrocyte Sedimentation Rate 21 mm/hr (0-20)
[2024-09-28] MEDS: dilTIAZem 100 MG/100 ML 100 MG/100 ML BAG IV CONT (05:50)
[2024-09-28] MEDS: FLUTICASONE/UMECLIDIN/VILANTER 100-62.5-25 MCG ELLIPTA 1 PUFF INHALATION (08:03)
--- NOTE | 2024-09-28 09:37 | P.CONCA_ITS ---
Assessment and Plan Assessment and plan (1) Atrial fibrillation with RVR: Code(s): I48.91 - Unspecified atrial fibrillation Status: Acute Assessment and Plan: [id number] 4. On heparin drip. On Diltiazem drip. On Metoprolol 50 mg PO BID. Stop Amlodipine. Stop Metoprolol. Start Sotalol 80 mg BID to cardiovert as per protocol checking EKG. Obtain echo. (2) HTN (hypertension): Code(s): I10 - Essential (primary) hypertension Status: Chronic Assessment and Plan: Stable. (3) Pneumonia: Code(s): J18.9 - Pneumonia, unspecified organism Status: Acute Assessment and Plan: On antibiotics. (4) COPD exacerbation: Code(s): J44.1 - Chronic obstructive pulmonary disease with (acute) exacerbation Status: Acute History of Present Illness History of Present Illness Consult date/time: 09/28/24 09:37 Reason For Visit: COPD, pneumonia, AFib with RVR Narrative: 84 yr old woman who is a patient of Dr. Steen presents to ER with sob. She has a history of AAA, hypertension, dyslipidemia (allergic to Lipitor and Fenofibrate with rash), COPD, CKD stage III. She is very hard of hearing. States she has sob for last few days with feeling cold and coughing with sputum production. She was found to have pneumonia and new onset atrial fibrillation. She can walk only a few steps for last 6 weeks due to SOB. States she had some palpitations intermittently. Denies chest pain, orthopnea, PND, edema, dizziness. Cardiovascular Procedures Echo/MUGA:: 12/04/19 Echo: EF 55-60%, grade I diastolic dysfunction, trace MR. Electrophysiology:: 12/30/20 EKG: Sinus rhythm. 06/05/19 EKG: Sinus rhythm, borderline T wave in diffuse leads. Stress Tests:: 10/16/20 CT lung: Mild coronary calcifications. 12/04/19 PFT: Severe obstruction. Review of Systems 2 Review of Systems: All systems reviewed & are unremarkable except as noted in HPI and below Constitutional: Constitutional: Reports as per HPI, Reports chills, Reports fatigue and Denies fever(s) Cardiovascular: Cardiovascular: Reports as per HPI, Denies chest pain and Reports irregular heart rhythm Respiratory: Respiratory: Reports as per HPI, Reports cough and Reports dyspnea Gastrointestinal: Gastrointestinal: Reports as per HPI and Denies abdominal pain Genitourinary: Genitourinary: Reports as per HPI and Denies dysuria Musculoskeletal: Musculoskeletal: Reports as per HPI Neurologic: Reports as per HPI, Denies dizziness and Denies syncope [facility] Past Medical History Medical History (Updated 09/27/24 @ 03:19 by Mindy Enriquez DO) Indeterminate pulmonary nodules Nocturnal hypoxemia AAA (abdominal aortic aneurysm) 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 Restless leg syndrome History of TIAs x6 Congestive heart failure diastolic Acute renal failure Stroke Shingles x2 across breast GERD (gastroesophageal reflux disease) COPD (chronic obstructive pulmonary disease) HTN (hypertension) Surgical History Surgical History H/O: hysterectomy H/O bilateral cataract extraction Family History Family History Mother Hypertension Cerebrovascular accident Sibling Cerebrovascular accident Family history of coronary artery disease Father Family history of chronic obstructive pulmonary disease Social History Social History (Updated 09/27/24 @ 03:17 by Mindy Enriquez DO) Social History: The patient is from her who is now . She lives with her granddaughter. She has 2 children. She is originally from [facility]. She is a former smoker Code status: DNR/DNI Healthcare power of personal injury attorney: Son Smoking packs per day: 2 Smoking cigarettes per day: 40.0 Years smoked: 60 Smoking pack-years: 120.00 Smoking status: Former smoker Tobacco type: cigarettes Second hand tobacco smoke exposure: No Smoking end date: 05/03/15 Alcohol intake: never Substance use: never Substance use type: does not use Do You Feel Safe in your Home?: No Lack of Transportation: No Lack of Food: Never True Current Housing: I Have Housing Concerned About Future Housing: No Difficulty Paying Gas/Electric Bills: No Difficulty Paying for Meds: No Currently Unemployed: No Education: High School Diploma/GED Difficulty w/ Childcare or Family Care: No Living arrangements: with family Occupation/Education: retired Gender identity (if verbalized by the patient): Female Sexual Orientation (if Verbalized by the Patient): Straight or Heterosexual Spiritual care concerns: No Agree to blood products: Yes Meds Home Medications and Allergies Home Medications ?Medication ?Instructions ?Recorded ?Confirmed ?Type albuterol sulfate 90 mcg/actuation 2 inhalation inhalation Q4-6H PRN 05/01/19 09/26/24 Rx aerosol inhaler (ProAir HFA) shortness of breath or wheezing #8.5 grams aspirin 81 mg chewable tablet 81 mg PO DAILY 06/05/19 09/26/24 History clopidogrel 75 mg tablet (Plavix) 75 mg PO DAILY 06/05/19 09/26/24 History estradiol 0.5 mg tablet 0.5 mg PO DAILY 06/05/19 09/26/24 History fluticasone propionate 50 2 spray intranasal BID PRN Nasal 06/05/19 09/26/24 History mcg/actuation nasal Congestion spray,suspension (Flonase Allergy Relief) hydroxyzine HCl 25 mg tablet 25 mg PO TID PRN Itching 06/05/19 09/26/24 History meclizine 12.5 mg tablet 12.5 mg PO DAILY PRN Dizziness 06/05/19 09/26/24 History multivitamin (Daily Multi-Vitamin 1 tablet PO DAILY 06/05/19 09/26/24 History tablet) ondansetron 4 mg disintegrating 4 mg PO Q6H PRN Nausea 06/05/19 09/26/24 History tablet propranolol 60 mg tablet 60 mg PO BID 06/05/19 09/26/24 History ropinirole 0.25 mg tablet (Requip) 0.25 mg PO HS 06/05/19 09/26/24 History benzonatate 100 mg capsule 100 mg PO BID PRN Cough 03/01/20 09/26/24 History (Romie Schwarz) famotidine 40 mg tablet 40 mg PO DAILY 11/25/20 09/26/24 History montelukast 10 mg tablet 10 mg PO QPM Allergic Reaction 11/25/20 09/26/24 History lisinopril 40 mg tablet 40 mg PO DAILY 12/30/20 09/26/24 History amlodipine 5 mg tablet 5 mg PO DAILY 01/17/21 09/26/24 History prednisone 10 mg tablet 10 mg PO DAILY 07/21/23 09/26/24 History albuterol sulfate 2.5 mg/3 mL 2.5 mg (3 mL) inhalation Q6H PRN 12/13/23 09/26/24 Rx (0.083 %) solution for nebulization shortness of breath or wheezing #360 mL Trelegy Ellipta 100 mcg-62.5 1 inh inhalation DAILY #60 ea 04/20/24 09/26/24 Rx mcg-25 mcg powder for inhalation (iplpwygbcam-zgidgybat-pwzyerpx) roflumilast 500 mcg tablet 500 mcg PO DAILY #30 tabs 06/19/24 09/26/24 Rx (Daliresp) hydrocodone 5 mg-acetaminophen 325 1 tablet PO Q8H PRN pain #14 tabs 08/18/24 09/26/24 Rx mg tablet Allergies Allergy/AdvReac Type Severity Reaction Status Date / Time atorvastatin (From Lipitor) Allergy Severe Swelling Verified 08/18/24 07:58 fenofibrate Allergy Severe Swelling Verified 08/18/24 07:58 Vital Signs Vital Signs - 24 hr 09/27/24 10:00 09/27/24 10:00 09/27/24 10:10 Temperature Pulse Rate 110 H 112 H 116 H Respiratory Rate Blood Pressure 144/91 H Pulse Oximetry Oxygen Delivery Oxygen Flow Rate 09/27/24 11:37 09/27/24 12:00 09/27/24 12:00 Temperature Pulse Rate 108 H 104 H 102 H Respiratory Rate Blood Pressure 144/91 H Pulse Oximetry Oxygen Delivery Oxygen Flow Rate 09/27/24 12:03 09/27/24 14:00 09/27/24 14:00 Temperature 97.5 F L Pulse Rate 116 H 101 H 103 H Respiratory Rate 22 H Blood Pressure 144/78 H Pulse Oximetry 97 Oxygen Delivery Oxygen Flow Rate 09/27/24 14:29 09/27/24 16:00 09/27/24 16:00 Temperature Pulse Rate 99 98 96 Respiratory Rate Blood Pressure 144/96 H Pulse Oximetry Oxygen Delivery Oxygen Flow Rate 09/27/24 16:36 09/27/24 18:00 09/27/24 18:00 Temperature 98.1 F Pulse Rate 109 H 98 113 H Respiratory Rate 18 Blood Pressure 151/93 H Pulse Oximetry 98 Oxygen Delivery Oxygen Flow Rate 09/27/24 18:17 09/27/24 18:43 09/27/24 19:58 Temperature 97.6 F Pulse Rate 119 H 103 H 110 H Respiratory Rate 22 H Blood Pressure 130/89 139/76 Pulse Oximetry 93 95 Oxygen Delivery Oxygen Flow Rate 09/27/24 20:00 09/27/24 20:00 09/27/24 20:00 Temperature Pulse Rate 114 H 114 H Respiratory Rate Blood Pressure 139/76 Pulse Oximetry 97 Oxygen Delivery Nasal Cannula Oxygen Flow Rate 2 09/27/24 21:58 09/27/24 22:00 09/27/24 22:00 Temperature 97.8 F Pulse Rate 107 H 101 H 81 Respiratory Rate 20 Blood Pressure 139/79 Pulse Oximetry 96 Oxygen Delivery Oxygen Flow Rate 09/27/24 22:00 09/27/24 23:55 09/28/24 00:00 Temperature 97.8 F Pulse Rate 81 98 Respiratory Rate Blood Pressure 139/79 131/67 Pulse Oximetry 97 96 Oxygen Delivery Nasal Cannula Oxygen Flow Rate 2 09/28/24 00:00 09/28/24 00:00 09/28/24 02:00 Temperature 98.1 F Pulse Rate 98 86 92 Respiratory Rate 20 Blood Pressure 131/67 128/72 Pulse Oximetry 98 Oxygen Delivery Oxygen Flow Rate 09/28/24 02:00 09/28/24 02:00 09/28/24 03:43 Temperature 98.6 F Pulse Rate 95 94 96 Respiratory Rate 20 Blood Pressure 128/72 118/86 Pulse Oximetry 97 Oxygen Delivery Oxygen Flow Rate 09/28/24 04:00 09/28/24 04:00 09/28/24 04:00 Temperature Pulse Rate 96 88 Respiratory Rate Blood Pressure 118/86 Pulse Oximetry 97 Oxygen Delivery Nasal Cannula Oxygen Flow Rate 2 09/28/24 05:50 09/28/24 05:50 09/28/24 05:58 Temperature Pulse Rate 88 88 Respiratory Rate Blood Pressure 121/88 121/88 121/88 Pulse Oximetry Oxygen Delivery Oxygen Flow Rate 09/28/24 05:59 09/28/24 08:08 Temperature 97.5 F L Pulse Rate 91 113 H Respiratory Rate 20 Blood Pressure 135/99 H Pulse Oximetry 96 Oxygen Delivery Oxygen Flow Rate Exam 2 Const: General: cooperative, healthy appearing and comfortable Resp: Auscultation: no crackles, no rales, no rhonchi, no wheezes and diminished lung sounds Cardio: Rate: tachycardic Rhythm: abnormal rhythm Heart sounds: no murmurs Peripheral pulses: dorsalis pedis present GI: GI Palp: No abdominal tenderness and Yes Soft to palpation Neuro: General: oriented to person, oriented to place and oriented to time Extrem: Right lower extremity: no edema Left lower extremity: no edema Results Labs and Meds 09/28/24 04:11 09/28/24 04:11 Lab results: Coagulation 09/27/24 09/28/24 Range/Units 20:52 04:11 PT 14.0 (11.1-14.7) Seconds APTT 23.2 138.2 H (22.3-36.8) Seconds CBC 09/28/24 Range/Units 04:11 WBC 17.3 H (4.5-10.0) K/mm3 RBC 3.51 L (4.2-5.4) M/mm3 Hgb 10.3 L (12.0-15.0) g/dL Hct 34.2 L (37.0-47.0) % Plt Count 223 (150-375) k/mm3 Lymph # (Auto) 2.27 (0.9-3.2) K/mm3 Spink # (Auto) 1.0 H (0.1-0.6) K/mm3 Eos # (Auto) 0.0 (0-0.3) K/mm3 Baso # (Auto) 0.0 (0.0-0.1) K/mm3 Comprehensive Metabolic Panel 09/28/24 Range/Units 04:11 Sodium 141 (137-145) mmol/L Potassium 4.8 (3.4-5.0) mmol/L Chloride 108 H (98-107) mmol/L Carbon Dioxide 29 (22-30) mmol/L BUN 38 H (7-17) mg/dL Creatinine 1.74 H (0.7-1.0) mg/dL Glucose 162 H (65-110) mg/dL Calcium 8.9 (8.4-10.2) mg/dL Intake and Output 09/27/24 09/28/24 09/28/24 23:59 07:59 15:59 Intake Total 430.0 370.4 Output Total 1 400 Balance 429.0 -29.6 Intake: IV 40.0 120.4 Heparin Sod/D5w 100 Units/ml 25 81.2 ,000 units In 250 ml @ 1,000 UNITS/HR 10 mls/hr IV CONT . Q24H [facility] Rx#:[id number] dilTIAZem 100 MG/100 ML 100 mg 40.0 39.2 In 100 ml @ 5 MG/HR 5 mls/hr IV CONT .Q20H [facility] Rx#:[id number] Oral 390 250 Output: Urine 400 Stool 1 Other: Number of Bowel Movements Today 3 Patient Weight 09/28/24 23:59 Weight 68.2 kg
--- NOTE | 2024-09-28 09:43 | ECG_ITS ---
Test Date: 2024-09-28 10:33:50 Measurements Intervals [place] Rate: 101 P: 0 ME: 0 QRS: 30 QRSD: 95 T: 9 QT: 365 QTc: 475 Interpretive Statements ATRIAL FIBRILLATION WITH RAPID VENTRICULAR RESPONSE ABNORMAL RHYTHM ECG Compared to ECG 09/26/2024 18:14:43 No significant changes Electronically Signed On 09-29-2024 11:02:21 CDT by Donavon Castillo M.D.
--- NOTE | 2024-09-28 09:55 | P.CDI_ITS ---
CDI Query Clarification Request Please specify acuity of heart failure if known. * Acute * Chronic * Acute on Chronic * Unknown The medical chart reflects the following: Patient H year old female who presents emergency department chief complaint of shortness of breath. Patient has prior history of COPD also has history of a lung mass that she is not under going count of evaluation or treatment for. The patient states that she normally wears 2 L of nasal cannula oxygen and reports that she had increased her oxygen to 4 L of the patient was given a DuoNeb by EMS prior to arrival the patient also was found to be tachycardic by EMS (2) Congestive heart failure: Qualifiers: Heart failure type: diastolic Code(s): I50.9 - Heart failure, unspecified Status: Chronic Assessment and Plan: In the setting of afib with RVR 40mg IV lasix daily, increase to BID if tolerates (3) Pneumonia: Code(s): J18.9 - Pneumonia, unspecified organism Status: Acute Assessment and Plan: Flu/RSV/Covid negative May have had a viral infection give cough vs chf exacerbation. Now pneumonia on chest x-ray. Patient declined CT for now. Does not wish to work up lung nodules --Continue Ceftiraxone --Stop IV azithromycin, can trial again if no changes overnight 09/26 BNP: 4550 Lasix 40 mg IV daily <Catherine An RN - Last Filed: 09/28/24 10:01> Please specify acuity of heart failure if known. * Acute * Chronic * Acute on Chronic * Unknown The medical chart reflects the following: Patient H year old female who presents emergency department chief complaint of shortness of breath. Patient has prior history of COPD also has history of a lung mass that she is not under going count of evaluation or treatment for. The patient states that she normally wears 2 L of nasal cannula oxygen and reports that she had increased her oxygen to 4 L of the patient was given a DuoNeb by EMS prior to arrival the patient also was found to be tachycardic by EMS (2) Congestive heart failure: Qualifiers: Heart failure type: diastolic Code(s): I50.9 - Heart failure, unspecified Status: Chronic Assessment and Plan: In the setting of afib with RVR 40mg IV lasix daily, increase to BID if tolerates (3) Pneumonia: Code(s): J18.9 - Pneumonia, unspecified organism Status: Acute Assessment and Plan: Flu/RSV/Covid negative May have had a viral infection give cough vs chf exacerbation. Now pneumonia on chest x-ray. Patient declined CT for now. Does not wish to work up lung nodules --Continue Ceftiraxone --Stop IV azithromycin, can trial again if no changes overnight 09/26 BNP: 4550 Lasix 40 mg IV daily <Maria Teresa Hamilton APRN - Last Filed: 09/28/24 15:51> Clarified Diagnosis Clarified Diagnosis: Likely acute on chronic systolic failure 2/2 afib with RVR <Maria Teresa Hamilton APRN - Last Filed: 09/28/24 15:51>
[2024-09-28] MEDS: lisinopriL 20 MG TABLET 40 MG PO (09:57)
[2024-09-28] MEDS: predniSONE 10 MG TABLET PO (09:57)
[2024-09-28] MEDS: ASPIRIN 81 MG CHEWABLE TABLET PO (09:57)
[2024-09-28] MEDS: BENZONATATE 100 MG CAPSULE 200 MG PO ×3 (09:57→18:42)
[2024-09-28] MEDS: MULTIVITAMINS THERAPEUTIC TAB (*BKC) 1 TABLET PO (09:57)
[2024-09-28] MEDS: ROFLUMILAST 500 MCG TABLET PO (09:57)
[2024-09-28] MEDS: CLOPIDOGREL BISULFATE 75 MG TABLET PO (09:57)
[2024-09-28] MEDS: estradioL 0.5 MG TABLET PO (09:57)
[2024-09-28] MEDS: FUROSEMIDE INJ 40 MG/4 ML VIAL IV PUSH (09:57)
[2024-09-28] MEDS: FAMOTIDINE 20 MG TABLET 40 MG PO (09:57)
--- NOTE | 2024-09-28 10:15 | PC.NURSE ---
This RN spoke with Dr. Mixon regarding clarification of medications. New orders to stop heparin gtt, start 2.5mg Eliquis PO BID. Order 80mg Sotalol PO q12hr first dose now. Pt may have a heart healthy diet. Orders entered by this RN
[2024-09-28] MEDS: APIXABAN 2.5 MG TABLET PO ×2 (10:56→20:59)
[2024-09-28] MEDS: SOTALOL HCL 80 MG TABLET PO ×2 (10:56→20:59)
--- NOTE | 2024-09-28 13:00 | ECG_ITS ---
Test Date: 2024-09-28 13:16:45 Measurements Intervals [place] Rate: 100 P: 0 MI: 0 QRS: 41 QRSD: 94 T: -37 QT: 378 QTc: 487 Interpretive Statements ATRIAL FIBRILLATION WITH RAPID VENTRICULAR RESPONSE NONSPECIFIC ST & T-WAVE ABNORMALITY Compared to ECG 09/28/2024 10:33:50 NO SIGNIFICANT CHANGES Electronically Signed On 09-29-2024 11:05:43 CDT by Donavon Castillo M.D.
--- NOTE | 2024-09-28 15:30 | P.PNIM_ITS ---
Progress Note: A&P Assessment and Plan (1) Atrial fibrillation with RVR: Code(s): I48.91 - Unspecified atrial fibrillation Status: Acute Assessment and Plan: Unclear if new afib and unclear onset. Acute shortness of breath started 09/26. Also had a cough for several weeks first --Continue ASA/Plavix --Improving with diltiazem drip --Cardiology consulted --Creatinine clearance too low for therapeutic lovenox --Stopped Heparin drip per cardiology recs --Cardiology started sotolol. (2) Congestive heart failure: Qualifiers: Heart failure type: diastolic Code(s): I50.9 - Heart failure, unspecified Status: Chronic Assessment and Plan: In the setting of afib with RVR. May be systolic failure, prior Echo 08/2016 55% 40mg IV lasix daily for now Daily weights I&O (3) Pneumonia: Code(s): J18.9 - Pneumonia, unspecified organism Status: Acute Assessment and Plan: WBC about the same, 17.8>17.3 after Ceftriaxone and Azithromycin. Flu/RSV/Covid negative. RVP pending. Question of allergy vs fluid overload with IV azith romycin. [place] more short of breath but no rash or itching. Holding for now. Can retry if needed Patient is not interested in getting a Chest CT because of prior discussion about lung nodules. But discussed that it could be helpful for short term treatment as well, not only for decision making about mass and chemotherapy (which she is not interested in) Feels more short of breath today --Start Cefepime and linezolid --Stop Ceftriaxone --Follow up Viral panel --Chest x-ray in AM --MRSA swab (4) Leukocytosis: Code(s): D72.829 - Elevated white blood cell count, unspecified Status: Acute Assessment and Plan: Elevated in the setting of pneumonia Follow WBC, check procalcitonin Time Spent With Patient Time: 56 minutes Subjective Date/time seen: 09/28/24 15:30 Interval history: Feels more short of breath today. Cardiology consulted, started sotolol Exam Narrative: Weight 68.7 kg BMI 24.4 General - Awake and alert. No acute distress Eyes - PERRLA, EOM intact ENT - No thrush, No erythema Neck - No noticeable or palpable swelling Lymph Nodes - No lymphadenopathy Cardiovascular - RRR no m/r/g, no JVD Lungs: Diffuse crackles, decreased throughout left lobe, crackles right lower lobe. Minimal air movement on the left No wheezing, mild use of accessory muscles Skin - Skin warm and dry, no wounds or rashes Abdomen - Normal bowel sounds, abdomen soft and nontender Extremities - No edema, cyanosis or clubbing Musculoskeletal - 5/5 strength, normal range of motion, no swollen or erythematous joints. Neurological ? Alert and oriented x 3, CN 2-12 grossly intact. Psych: Normal mood and affect Objective Data Vital Signs Vital Signs: Vital Signs - 24 hr 09/27/24 16:00 09/27/24 16:00 09/27/24 16:36 Temperature 98.1 F Pulse Rate 98 96 109 H Respiratory Rate 18 Blood Pressure 151/93 H Pulse Oximetry 98 Oxygen Delivery Oxygen Flow Rate 09/27/24 18:00 09/27/24 18:00 09/27/24 18:17 Temperature Pulse Rate 98 113 H 119 H Respiratory Rate Blood Pressure Pulse Oximetry Oxygen Delivery Oxygen Flow Rate 09/27/24 18:43 09/27/24 19:58 09/27/24 20:00 Temperature 97.6 F Pulse Rate 103 H 110 H 114 H Respiratory Rate 22 H Blood Pressure 130/89 139/76 Pulse Oximetry 93 95 Oxygen Delivery Oxygen Flow Rate 09/27/24 20:00 09/27/24 20:00 09/27/24 21:58 Temperature Pulse Rate 114 H 107 H Respiratory Rate Blood Pressure 139/76 Pulse Oximetry 97 Oxygen Delivery Nasal Cannula Oxygen Flow Rate 2 09/27/24 22:00 09/27/24 22:00 09/27/24 22:00 Temperature 97.8 F Pulse Rate 101 H 81 81 Respiratory Rate 20 Blood Pressure 139/79 139/79 Pulse Oximetry 96 Oxygen Delivery Oxygen Flow Rate 09/27/24 23:55 09/28/24 00:00 09/28/24 00:00 Temperature 97.8 F Pulse Rate 98 98 Respiratory Rate Blood Pressure 131/67 131/67 Pulse Oximetry 97 96 Oxygen Delivery Nasal Cannula Oxygen Flow Rate 2 09/28/24 00:00 09/28/24 02:00 09/28/24 02:00 Temperature 98.1 F Pulse Rate 86 92 95 Respiratory Rate 20 Blood Pressure 128/72 Pulse Oximetry 98 Oxygen Delivery Oxygen Flow Rate 09/28/24 02:00 09/28/24 03:43 09/28/24 04:00 Temperature 98.6 F Pulse Rate 94 96 96 Respiratory Rate 20 Blood Pressure 128/72 118/86 118/86 Pulse Oximetry 97 Oxygen Delivery Oxygen Flow Rate 09/28/24 04:00 09/28/24 04:00 09/28/24 05:50 Temperature Pulse Rate 88 88 Respiratory Rate Blood Pressure 121/88 Pulse Oximetry 97 Oxygen Delivery Nasal Cannula Oxygen Flow Rate 2 09/28/24 05:50 09/28/24 05:58 09/28/24 05:59 Temperature Pulse Rate 88 91 Respiratory Rate Blood Pressure 121/88 121/88 Pulse Oximetry Oxygen Delivery Oxygen Flow Rate 09/28/24 08:00 09/28/24 08:00 09/28/24 08:00 Temperature Pulse Rate 113 H 113 H 96 Respiratory Rate 20 Blood Pressure 133/59 L Pulse Oximetry 96 Oxygen Delivery Nasal Cannula Oxygen Flow Rate 2 09/28/24 08:08 09/28/24 10:00 09/28/24 10:00 Temperature 97.5 F L Pulse Rate 113 H 100 100 Respiratory Rate 20 Blood Pressure 135/99 H 139/76 139/76 Pulse Oximetry 96 100 Oxygen Delivery Oxygen Flow Rate 09/28/24 10:00 09/28/24 10:56 09/28/24 11:58 Temperature Pulse Rate 101 H 100 92 Respiratory Rate Blood Pressure 142/93 H Pulse Oximetry Oxygen Delivery Oxygen Flow Rate 09/28/24 12:00 09/28/24 12:00 09/28/24 12:08 Temperature 97.7 F Pulse Rate 92 114 H 92 Respiratory Rate 20 20 Blood Pressure 142/93 H Pulse Oximetry 98 98 Oxygen Delivery Nasal Cannula Oxygen Flow Rate 2 09/28/24 14:00 09/28/24 14:00 09/28/24 14:05 Temperature Pulse Rate 98 113 H 113 H Respiratory Rate Blood Pressure 131/78 131/78 Pulse Oximetry Oxygen Delivery Oxygen Flow Rate Intake/Output Intake/Output: Intake & Output 09/25/24 09/26/24 09/27/24 09/28/24 23:59 23:59 23:59 23:59 Intake Total 1314.6 636.5 651.2 Output Total 3 951 Balance 1314.6 633.5 -299.8 Meds/Results Medications: Active Medications Generic Name Dose Route Start Last Admin Trade Name Freq PRN Reason Stop Dose Admin Acetaminophen 650 mg 09/26/24 18:01 Acetaminophen 325 Mg Tablet PO Q4H PRN Mild Pain (1-3) or Fever Hydrocodone Bitart/Acetaminophen 1 tab 09/27/24 03:20 Hydrocodone/Acetaminophen (*Crx) 5-325 Mg Tablet PO Q8H PRN pain 7-10 Apixaban 2.5 mg 09/28/24 10:25 09/28/24 10:56 Apixaban 2.5 Mg Tablet PO 2.5 mg Q12HR RAFAEL Administration Aspirin 81 mg 09/27/24 08:00 09/28/24 09:57 Aspirin 81 Mg Chewable Tablet PO 81 mg DAILY@0800 RAFAEL Administration Benzonatate 100 mg 09/27/24 03:20 Benzonatate 100 Mg Capsule PO BID PRN Cough Benzonatate 200 mg 09/27/24 19:35 09/28/24 14:54 Benzonatate 100 Mg Capsule PO 200 mg TID RAFAEL Administration Clopidogrel Bisulfate 75 mg 09/27/24 09:00 09/28/24 09:57 Clopidogrel Bisulfate 75 Mg Tablet PO 75 mg DAILY RAFAEL Administration Estradiol 0.5 mg 09/27/24 09:00 09/28/24 09:57 Estradiol 0.5 Mg Tablet PO 0.5 mg DAILY RAFAEL Administration Famotidine 40 mg 09/27/24 09:00 09/28/24 09:57 Famotidine 20 Mg Tablet PO 40 mg DAILY RAFAEL Administration Fluticasone Propionate 1 spray 09/27/24 03:20 Fluticasone Propionate 0.05% Na Spr 16 Gm Btl (*Bkc) NASAL BID PRN Nasal Congestion Fluticasone/Umeclidinium/Vilanterol 1 puff 09/27/24 08:00 09/28/24 08:03 Fluticasone/Umeclidin/Vilanter 100-62.5-25 Mcg Ellipta INHALATION 1 puff DAILYRT RAFAEL Administration Furosemide 40 mg 09/28/24 09:00 09/28/24 09:57 Furosemide Inj 40 Mg/4 Ml Vial IV PUSH 40 mg DAILY RAFAEL Administration Hydroxyzine HCl 25 mg 09/27/24 03:39 Hydroxyzine Hcl 25 Mg Tablet PO TID PRN Itching Diltiazem HCl 100 mg in 100 mls @ 5 mls/hr 05/28/25 11:25 09/28/24 14:00 Cardizem 100 Mg/100 Ml IV CONT 5 mg/hr .Q20H RAFAEL 5 mls/hr Infusion 5 MG/HR Cefepime HCl 2 gm in 50 mls @ 100 mls/hr 09/28/24 15:10 Maxipime 2 Gm/Ns 50 Ml IVPB Q12H RAFAEL Linezolid 600 mg 09/28/24 15:10 Linezolid 600 Mg Tablet PO Q12HR RAFAEL Lisinopril 40 mg 09/27/24 09:00 09/28/24 09:57 Lisinopril 20 Mg Tablet PO 40 mg DAILY RAFAEL Administration Montelukast Sodium 10 mg 09/27/24 18:00 09/27/24 16:44 Montelukast Sodium 10 Mg Tablet PO 10 mg QPM RAFAEL Administration Multivitamins Therapeutic 1 tablet 09/27/24 09:00 09/28/24 09:57 Multivitamins Therapeutic Tab (*Bkc) PO 1 tablet DAILY RAFAEL Administration Perflutren Lipid Microsphere 0 ml 09/27/24 20:16 Perflutren Lipid Microspheres 1.5 Ml Vial Diluted To 10 Ml Total Volume IV PUSH 09/30/24 20:16 ONCE PRN adequate visualization Protocol Prednisone 10 mg 09/27/24 08:00 09/28/24 09:57 Prednisone 10 Mg Tablet PO 10 mg DAILY@0800 RAFAEL Administration Roflumilast 500 mcg 09/27/24 09:00 09/28/24 09:57 Roflumilast 500 Mcg Tablet PO 500 mcg DAILY RAFAEL Administration Ropinirole HCl 0.25 mg 09/27/24 21:00 09/27/24 21:58 Ropinirole Hcl 0.25 Mg Tablet PO 0.25 mg HS RAFAEL Administration Sotalol HCl 80 mg 09/28/24 10:20 09/28/24 10:56 Sotalol Hcl 80 Mg Tablet PO 80 mg Q12HR RAFAEL Administration Radiology Results: ITS Impressions Chest X-Ray 09/26/24 14:56 Impression: 1: Bilateral upper lobe masses, suspicious for malignancy. Recommend correlation with CT chest. 2: Interval development of patchy bilateral airspace disease, compatible with pneumonia. Labs Labs: Laboratory Results - last 24 hr 09/27/24 09/28/24 20:52 04:11 WBC 17.3 H RBC 3.51 L Hgb 10.3 L Hct 34.2 L MCV 97.4 MCH 29.3 MCHC 30.1 L RDW 18.0 H Plt Count 223 MPV 11.4 H Immature Gran % (Auto) 0.9 H Neut % (Auto) 80.0 H Lymph % (Auto) 13.1 L [place] % (Auto) 5.7 Eos % (Auto) 0.2 Baso % (Auto) 0.1 L Lymph # (Auto) 2.27 [place] # (Auto) 1.0 H Eos # (Auto) 0.0 Baso # (Auto) 0.0 Abs Immat Gran (auto) 0.16 H Absolute Neuts (auto) 13.9 H Absolute Nucleated RBC 0.020 H Nucleated RBC % 0.1 ESR 21 H PT 14.0 INR 1.1 APTT 23.2 138.2 H Sodium 141 Potassium 4.8 Chloride 108 H Carbon Dioxide 29 Anion Gap 4 BUN 38 H Creatinine 1.74 H Estim Creat Clear Calc 21 Estimated GFR 28 L Glucose 162 H Calcium 8.9 Magnesium 2.0 C-Reactive Protein 2.5 H Quality VTE Prophylaxis VTE prophylaxis: pharmacologic ordered Hospitalist MIPS Advance Care Plan I have confirmed that the patient's Advanced Care Plan is present, code status is documented, or surrogate decision maker is listed in patient medical record.: Yes Medication Reconciliation I have utilized all available resources to obtain, update and review the olive bowman current medications (includes all prescriptions, OTC, herbals, cannabis, and nutritional supplements).: Yes
[2024-09-28] MEDS: CEFEPIME 1 GM/NS 50 ML 1 GM/50 ML BAG IVPB (16:09)
[2024-09-28] MEDS: LINEZOLID 600 MG TABLET PO (16:09)
[2024-09-28 17:28] LABS: MRSA (PCR) NOT DETECTED (NOT DETECTE)
[2024-09-28] MEDS: MONTELUKAST SODIUM 10 MG TABLET PO (18:42)
[2024-09-28] MEDS: rOPINIRole HCL 0.25 MG TABLET PO (20:59)
[2024-09-28] MEDS: BENZONATATE 100 MG CAPSULE PO (21:03)
--- NOTE | 2024-09-28 23:00 | ECG_ITS ---
Test Date: 2024-09-28 23:06:10 Measurements Intervals [place] Rate: 97 P: 0 [place]: 0 QRS: 13 QRSD: 77 T: -42 QT: 374 QTc: 477 Interpretive Statements ATRIAL FIBRILLATION NONSPECIFIC ST & T-WAVE ABNORMALITY Compared to ECG 09/28/2024 13:16:45 NO SIGNIFICANT CHANGES Electronically Signed On 09-29-2024 15:05:21 CDT by Donavon Castillo M.D.
[2024-09-29] VITALS (29 sets, daily range): BP systolic 115–144; BP diastolic 63–90; PULSE 60–99; RESP 18–20; TEMP 36.2–36.9; O2SAT 93–100
[2024-09-29] MEDS: dilTIAZem 100 MG/100 ML 100 MG/100 ML BAG IV CONT (02:10)
[2024-09-29] MEDS: LINEZOLID 600 MG TABLET PO ×2 (04:17→16:55)
[2024-09-29] MEDS: CEFEPIME 1 GM/NS 50 ML 1 GM/50 ML BAG IVPB ×2 (04:20→16:55)
[2024-09-29] MEDS: SODIUM CHLOR 3% 15 ML NEB (RESPIRATORY THERAPY) 6 ML INHALATION (05:18)
[2024-09-29] MEDS: FLUTICASONE/UMECLIDIN/VILANTER 100-62.5-25 MCG ELLIPTA 1 PUFF INHALATION (05:21)
[2024-09-29 06:27] LABS: Basophils Percent Auto 0.2 % (0.2-1.2); Eosinophils Absolute Auto 0.3 K/mm3 (0-0.3); Eosinophils Percent Auto 1.9 % (0-4.4); Hematocrit 34.4 % (37.0-47.0); Immature Granulocyte Absolute 0.12 K/mm3 (0.00-0.031); Immature Granulocyte Percent A 0.8 % (0-0.5); Lymphocytes Absolute Auto 3.22 K/mm3 (0.9-3.2); Lymphocytes Percent Auto 20.9 % (18.3-44.2); Mean Corpuscular HGB Conc 29.1 g/dl (32-36); Mean Corpuscular Hemoglobin 28.7 pg (26-34); Mean Corpuscular Volume 98.6 fl (80-100); Mean Platelet Volume 11.5 fl (7.4-10.4); Monocytes Absolute Auto 1.2 K/mm3 (0.1-0.6); Monocytes Percent Auto 7.7 % (2.6-8.5); Neutrophils Absolute Auto 10.5 K/mm3 (1.3-6.7); Neutrophils Percent Auto 68.5 % (45.5-73.1); Platelet Count Result 223 k/mm3 (150-375); Red Blood Count 3.49 M/mm3 (4.2-5.4); Red Cell Distribution Width 17.9 % (11.5-14.5); White Blood Count 15.4 K/mm3 (4.5-10.0)
[2024-09-29 06:39] LABS: Anion Gap 5 mmol/L (4-12); Blood Urea Nitrogen 42 mg/dL (7-17); Calcium 8.7 mg/dL (8.4-10.2); Carbon Dioxide 30 mmol/L (22-30); Chloride 104 mmol/L (98-107); Estimated CRCL calculation 21 ml/min; Estimated Glomerular Filt Rate 28; Glucose 145 mg/dL (65-110); Magnesium 1.9 mg/dL (1.6-2.3); Potassium 4.2 mmol/L (3.4-5.0); Sodium 139 mmol/L (137-145)
[2024-09-29 06:52] LABS: Hypochromasia 1+; Platelet Estimate Adequate (Adequate)
[2024-09-29 06:53] LABS: Anisocytosis 1+; Ovalocytes 1+; Target Cells 1+
[2024-09-29 06:54] LABS: Schistocytes Rare
[2024-09-29 06:55] LABS: Procalcitonin 0.1 ng/mL
--- NOTE | 2024-09-29 07:57 | PM.PNCARD ---
Progress Note: A&P Assessment and Plan (1) Atrial fibrillation with RVR: Code(s): I48.91 - Unspecified atrial fibrillation Status: Acute Assessment and Plan: In atrial fibrillation. [id number] 4. On Eliquis 2.5 mg BID. On Diltiazem drip. On 09/28/24 Started Sotalol 80 mg BID to cardiovert as per protocol checking EKG. Stop Diltiazem drip. Start Diltiazem 240 mg daily. Obtain echo. (2) HTN (hypertension): Code(s): I10 - Essential (primary) hypertension Status: Chronic Assessment and Plan: Stable. (3) Pneumonia: Code(s): J18.9 - Pneumonia, unspecified organism Status: Acute Assessment and Plan: On antibiotics. (4) COPD exacerbation: Code(s): J44.1 - Chronic obstructive pulmonary disease with (acute) exacerbation Status: Acute Subjective Date/time seen: 09/29/24 07:57 Interval history: She has some mild sob. No chest pains. Exam Const: General: cooperative, healthy appearing and comfortable Orientation/consciousness: oriented to person, oriented to place and oriented to time Resp: Auscultation: no crackles, no rales, no rhonchi, no wheezes and diminished lung sounds Cardio: Rate: tachycardic Rhythm: abnormal rhythm Heart sounds: no murmurs Peripheral pulses: dorsalis pedis present Neuro: General: oriented to person, oriented to place and oriented to time Extrem: Right lower extremity: no edema Left lower extremity: no edema Objective Data Vital Signs Vital Signs: Vital Signs - 24 hr 09/28/24 08:00 09/28/24 08:00 09/28/24 08:00 Temperature Pulse Rate 113 H 113 H 96 Respiratory Rate 20 Blood Pressure 133/59 L Pulse Oximetry 96 Oxygen Delivery Nasal Cannula Oxygen Flow Rate 2 09/28/24 08:08 09/28/24 10:00 09/28/24 10:00 Temperature 97.5 F L Pulse Rate 113 H 100 100 Respiratory Rate 20 Blood Pressure 135/99 H 139/76 139/76 Pulse Oximetry 96 100 Oxygen Delivery Oxygen Flow Rate 09/28/24 10:00 09/28/24 10:56 09/28/24 11:58 Temperature Pulse Rate 101 H 100 92 Respiratory Rate Blood Pressure 142/93 H Pulse Oximetry Oxygen Delivery Oxygen Flow Rate 09/28/24 12:00 09/28/24 12:00 09/28/24 12:08 Temperature 97.7 F Pulse Rate 92 114 H 92 Respiratory Rate 20 20 Blood Pressure 142/93 H Pulse Oximetry 98 98 Oxygen Delivery Nasal Cannula Oxygen Flow Rate 2 09/28/24 14:00 09/28/24 14:00 09/28/24 14:05 Temperature Pulse Rate 98 113 H 113 H Respiratory Rate Blood Pressure 131/78 131/78 Pulse Oximetry Oxygen Delivery Oxygen Flow Rate 09/28/24 16:00 09/28/24 16:00 09/28/24 16:00 Temperature Pulse Rate 106 H 101 H 106 H Respiratory Rate 20 Blood Pressure 145/94 H Pulse Oximetry 100 Oxygen Delivery Nasal Cannula Oxygen Flow Rate 2 09/28/24 16:04 09/28/24 18:00 09/28/24 18:00 Temperature 97.4 F L Pulse Rate 106 H 105 H 90 Respiratory Rate 20 Blood Pressure 145/94 H 139/87 Pulse Oximetry 100 Oxygen Delivery Oxygen Flow Rate 09/28/24 18:29 09/28/24 20:00 09/28/24 20:00 Temperature 97.9 F 97.8 F Pulse Rate 90 101 H 107 H Respiratory Rate 20 20 Blood Pressure 139/87 120/71 Pulse Oximetry 100 99 Oxygen Delivery Oxygen Flow Rate 09/28/24 20:00 09/28/24 20:50 09/28/24 20:59 Temperature Pulse Rate 101 H 117 H Respiratory Rate Blood Pressure 120/71 Pulse Oximetry 99 Oxygen Delivery Nasal Cannula Oxygen Flow Rate 3 09/28/24 22:00 09/28/24 22:00 09/28/24 22:00 Temperature Pulse Rate 103 H 100 103 H Respiratory Rate Blood Pressure 134/75 134/75 Pulse Oximetry Oxygen Delivery Oxygen Flow Rate 09/28/24 23:55 09/29/24 00:00 09/29/24 00:00 Temperature 97.8 F Pulse Rate 97 97 93 Respiratory Rate 20 Blood Pressure 131/90 131/90 Pulse Oximetry 100 Oxygen Delivery Oxygen Flow Rate 09/29/24 00:00 09/29/24 01:48 09/29/24 02:00 Temperature Pulse Rate 86 91 Respiratory Rate Blood Pressure 126/72 Pulse Oximetry 100 Oxygen Delivery Nasal Cannula Oxygen Flow Rate 3 09/29/24 02:05 09/29/24 02:10 09/29/24 04:00 Temperature 97.8 F Pulse Rate 93 91 95 Respiratory Rate 20 Blood Pressure 126/72 126/72 126/84 Pulse Oximetry 99 Oxygen Delivery Oxygen Flow Rate 09/29/24 04:00 09/29/24 04:00 09/29/24 04:00 Temperature Pulse Rate 95 95 Respiratory Rate Blood Pressure 126/84 Pulse Oximetry 98 Oxygen Delivery Nasal Cannula Oxygen Flow Rate 2 09/29/24 05:20 09/29/24 05:30 09/29/24 05:34 Temperature Pulse Rate 82 78 78 Respiratory Rate 20 20 20 Blood Pressure Pulse Oximetry Oxygen Delivery Oxygen Flow Rate 09/29/24 06:00 09/29/24 06:00 09/29/24 06:00 Temperature Pulse Rate 97 97 97 Respiratory Rate Blood Pressure 115/85 115/85 Pulse Oximetry Oxygen Delivery Oxygen Flow Rate 09/29/24 07:46 Temperature 98.4 F Pulse Rate 96 Respiratory Rate 20 Blood Pressure 138/83 Pulse Oximetry 100 Oxygen Delivery Oxygen Flow Rate Intake/Output Intake/Output: Intake & Output 09/26/24 09/27/24 09/28/24 09/29/24 23:59 23:59 23:59 23:59 Intake Total 1314.6 636.5 1301.2 88.4 Output Total 3 1851 200 Balance 1314.6 633.5 -549.8 -111.6 Meds/Results Medications: Active Medications Generic Name Dose Route Start Last Admin Trade Name Freq PRN Reason Stop Dose Admin Acetaminophen 650 mg 09/26/24 18:01 Acetaminophen 325 Mg Tablet PO Q4H PRN Mild Pain (1-3) or Fever Hydrocodone Bitart/Acetaminophen 1 tab 09/27/24 03:20 Hydrocodone/Acetaminophen (*Crx) 5-325 Mg Tablet PO Q8H PRN pain 7-10 Apixaban 2.5 mg 09/28/24 10:25 09/28/24 20:59 Apixaban 2.5 Mg Tablet PO 2.5 mg Q12HR RAFAEL Administration Aspirin 81 mg 09/27/24 08:00 09/28/24 09:57 Aspirin 81 Mg Chewable Tablet PO 81 mg DAILY@0800 RAFAEL Administration Benzonatate 100 mg 09/27/24 03:20 09/28/24 21:03 Benzonatate 100 Mg Capsule PO 100 mg BID PRN Administration Cough Benzonatate 200 mg 09/27/24 19:35 09/28/24 18:42 Benzonatate 100 Mg Capsule PO 200 mg TID RAFAEL Administration Clopidogrel Bisulfate 75 mg 09/27/24 09:00 09/28/24 09:57 Clopidogrel Bisulfate 75 Mg Tablet PO 75 mg DAILY RAFAEL Administration Estradiol 0.5 mg 09/27/24 09:00 09/28/24 09:57 Estradiol 0.5 Mg Tablet PO 0.5 mg DAILY RAFAEL Administration Famotidine 40 mg 09/27/24 09:00 09/28/24 09:57 Famotidine 20 Mg Tablet PO 40 mg DAILY RAFAEL Administration Fluticasone Propionate 1 spray 09/27/24 03:20 Fluticasone Propionate 0.05% Na Spr 16 Gm Btl (*Bkc) NASAL BID PRN Nasal Congestion Fluticasone/Umeclidinium/Vilanterol 1 puff 09/27/24 08:00 09/29/24 05:21 Fluticasone/Umeclidin/Vilanter 100-62.5-25 Mcg Ellipta INHALATION 1 puff DAILYRT RAFAEL Administration Furosemide 40 mg 09/28/24 09:00 09/28/24 09:57 Furosemide Inj 40 Mg/4 Ml Vial IV PUSH 40 mg DAILY RAFAEL Administration Hydroxyzine HCl 25 mg 09/27/24 03:39 Hydroxyzine Hcl 25 Mg Tablet PO TID PRN Itching Diltiazem HCl 100 mg in 100 mls @ 5 mls/hr 09/27/24 11:25 09/29/24 06:00 Cardizem 100 Mg/100 Ml IV CONT 5 mg/hr .Q20H RAFAEL 5 mls/hr Infusion 5 MG/HR Cefepime HCl 1 gm in 50 mls @ 100 mls/hr 09/28/24 16:00 09/29/24 04:50 Maxipime 1 Gm/Ns 50 Ml IVPB Infused Q12H RAFAEL Infusion Linezolid 600 mg 09/28/24 16:00 09/29/24 04:17 Linezolid 600 Mg Tablet PO 600 mg Q12H RAFAEL Administration Lisinopril 40 mg 09/27/24 09:00 09/28/24 09:57 Lisinopril 20 Mg Tablet PO 40 mg DAILY RAFAEL Administration Montelukast Sodium 10 mg 09/27/24 18:00 09/28/24 18:42 Montelukast Sodium 10 Mg Tablet PO 10 mg QPM RAFAEL Administration Multivitamins Therapeutic 1 tablet 09/27/24 09:00 09/28/24 09:57 Multivitamins Therapeutic Tab (*Bkc) PO 1 tablet DAILY RAFAEL Administration Perflutren Lipid Microsphere 0 ml 09/27/24 20:16 Perflutren Lipid Microspheres 1.5 Ml Vial Diluted To 10 Ml Total Volume IV PUSH 09/30/24 20:16 ONCE PRN adequate visualization Protocol Prednisone 10 mg 09/27/24 08:00 09/28/24 09:57 Prednisone 10 Mg Tablet PO 10 mg DAILY@0800 RAFAEL Administration Roflumilast 500 mcg 09/27/24 09:00 09/28/24 09:57 Roflumilast 500 Mcg Tablet PO 500 mcg DAILY RAFAEL Administration Ropinirole HCl 0.25 mg 09/27/24 21:00 09/28/24 20:59 Ropinirole Hcl 0.25 Mg Tablet PO 0.25 mg HS RAFAEL Administration Sodium Chloride 6 ml 09/29/24 05:00 09/29/24 05:18 Sodium Chlor 3% 15 Ml Neb (Respiratory Therapy) INHALATION 10/01/24 05:01 6 ml DAILY@0500 RAFAEL Administration Sotalol HCl 80 mg 09/28/24 10:20 09/28/24 20:59 Sotalol Hcl 80 Mg Tablet PO 80 mg Q12HR RAFAEL Administration Radiology Results: ITS Impressions Chest X-Ray 09/26/24 14:56 Impression: 1: Bilateral upper lobe masses, suspicious for malignancy. Recommend correlation with CT chest. 2: Interval development of patchy bilateral airspace disease, compatible with pneumonia. Labs Labs: Laboratory Results - last 24 hr 09/28/24 09/28/24 09/29/24 04:11 16:14 06:15 WBC 15.4 H RBC 3.49 L Hgb 10.0 L Hct 34.4 L MCV 98.6 MCH 28.7 MCHC 29.1 L RDW 17.9 H Plt Count 223 MPV 11.5 H Immature Gran % (Auto) 0.8 H Neut % (Auto) 68.5 Lymph % (Auto) 20.9 [place] % (Auto) 7.7 Eos % (Auto) 1.9 Baso % (Auto) 0.2 Lymph # (Auto) 3.22 H [place] # (Auto) 1.2 H Eos # (Auto) 0.3 Baso # (Auto) 0.0 Abs Immat Gran (auto) 0.12 H Absolute Neuts (auto) 10.5 H Absolute Nucleated RBC 0.000 Band Neutrophils % Not Reportable Nucleated RBC % 0.0 Platelet Estimate Adequate Hypochromasia 1+ Anisocytosis 1+ Target Cells 1+ Ovalocytes 1+ Schistocytes Rare Sodium 139 Potassium 4.2 Chloride 104 Carbon Dioxide 30 Anion Gap 5 BUN 42 H Creatinine 1.76 H Estim Creat Clear Calc 21 Estimated GFR 28 L Glucose 145 H Calcium 8.7 Magnesium 2.0 1.9 Procalcitonin 0.1 Nasal MRSA (PCR) Not detected
[2024-09-29] MEDS: dilTIAZem HCL CD 240 MG CAP.24HR PO (08:15)
[2024-09-29] MEDS: FAMOTIDINE 20 MG TABLET 40 MG PO (08:16)
[2024-09-29] MEDS: BENZONATATE 100 MG CAPSULE 200 MG PO ×3 (08:16→16:55)
[2024-09-29] MEDS: ROFLUMILAST 500 MCG TABLET PO (08:17)
[2024-09-29] MEDS: ASPIRIN 81 MG CHEWABLE TABLET PO (08:17)
[2024-09-29] MEDS: predniSONE 10 MG TABLET PO (08:17)
[2024-09-29] MEDS: CLOPIDOGREL BISULFATE 75 MG TABLET PO (08:17)
[2024-09-29] MEDS: estradioL 0.5 MG TABLET PO (08:17)
[2024-09-29] MEDS: SOTALOL HCL 80 MG TABLET PO ×2 (08:18→20:17)
[2024-09-29] MEDS: lisinopriL 20 MG TABLET 40 MG PO (08:18)
[2024-09-29] MEDS: MULTIVITAMINS THERAPEUTIC TAB (*BKC) 1 TABLET PO (08:18)
[2024-09-29] MEDS: APIXABAN 2.5 MG TABLET PO ×2 (08:18→20:18)
[2024-09-29] MEDS: FUROSEMIDE INJ 40 MG/4 ML VIAL IV PUSH (08:19)
--- NOTE | 2024-09-29 10:30 | ECG_ITS ---
Test Date: 2024-09-29 10:39:22 Measurements Intervals [place] Rate: 95 P: 0 HI: 0 QRS: 41 QRSD: 88 T: -11 QT: 370 QTc: 467 Interpretive Statements ATRIAL FIBRILLATION NONSPECIFIC ST & T-WAVE ABNORMALITY Compared to ECG 09/28/2024 23:06:10 No significant changes Electronically Signed On 09-29-2024 15:08:24 CDT by Donavon Castillo M.D.
--- NOTE | 2024-09-29 15:57 | PM.IMPN ---
Progress Note: A&P Assessment and Plan (1) Atrial fibrillation with RVR: Code(s): I48.91 - Unspecified atrial fibrillation Status: Acute Assessment and Plan: Unclear if new afib and unclear onset. Acute shortness of breath started 09/26. Also had a cough for several weeks first --Continue ASA/Plavix --Improving with diltiazem drip --Cardiology consulted --Creatinine clearance too low for therapeutic lovenox --Stopped Heparin drip per cardiology recs --Cardiology started sotolol. Rate controlled on tele (2) Congestive heart failure: Qualifiers: Heart failure type: diastolic Code(s): I50.9 - Heart failure, unspecified Status: Chronic Assessment and Plan: In the setting of afib with RVR. May be systolic failure, prior Echo 08/2016 55% 40mg IV lasix daily change to 20 mg p.o. daily tomorrow Daily weights I&O (3) Pneumonia: Code(s): J18.9 - Pneumonia, unspecified organism Status: Acute Assessment and Plan: WBC about the same, 17.8>17.3 after Ceftriaxone and Azithromycin. Flu/RSV/Covid negative. RVP pending. Question of allergy vs fluid overload with IV azithromycin. [place] more short of breath but no rash or itching. Holding for now. Can retry if needed Patient is not interested in getting a Chest CT because of prior discussion about lung nodules. But discussed that it could be helpful for short term treatment as well, not only for decision making about mass and chemotherapy (which she is not interested in) Feels more short of breath today --Started Cefepime and linezolid, continue for now --Stopped Ceftriaxone --Follow up Viral panel --Chest x-ray in AM --MRSA swab (4) Leukocytosis: Code(s): D72.829 - Elevated white blood cell count, unspecified Status: Acute Assessment and Plan: Elevated in the setting of pneumonia, improving Follow WBC, check procalcitonin (5) Emesis: Code(s): R11.10 - Vomiting, unspecified Status: Acute Assessment and Plan: Reports 2 weeks increased reflux, small amount of emesis after meals. Feels that she can keep down most of her meal Start a PPI daily Tigan q.6 p.r.n., Zofran q.12 p.r.n. limit QTC prolonging meds . Time Spent With Patient Time: 53 minutes Subjective Date/time seen: 09/29/24 15:57 Interval history: Feels shortness of breath is improving slowly white count improving Vital signs stable, on 2 L of oxygen Having episodes of reflux after meals, small amount of emesis/spits up reports that this is new in the last couple of weeks Exam Narrative: Weight 68.7 kg BMI 24.4 General - Awake and alert. No acute distress Eyes - PERRLA, EOM intact ENT - No thrush, No erythema Neck - No noticeable or palpable swelling Lymph Nodes - No lymphadenopathy Cardiovascular - RRR no m/r/g, no JVD Lungs: Diffuse crackles, improved aeration to to left lobe, crackles right lower lobe. Minimal air movement on the left No wheezing, mild use of accessory muscles Skin - Skin warm and dry, no wounds or rashes Abdomen - Normal bowel sounds, abdomen soft and nontender Extremities - No edema, cyanosis or clubbing Musculoskeletal - 5/5 strength, normal range of motion, no swollen or erythematous joints. Neurological ? Alert and oriented x 3, CN 2-12 grossly intact. Psych: Normal mood and affect Objective Data Vital Signs Vital Signs: Vital Signs - 24 hr 09/28/24 16:00 09/28/24 16:00 09/28/24 16:00 Temperature Pulse Rate 106 H 101 H 106 H Respiratory Rate 20 Blood Pressure 145/94 H Pulse Oximetry 100 Oxygen Delivery Nasal Cannula Oxygen Flow Rate 2 09/28/24 16:04 09/28/24 18:00 09/28/24 18:00 Temperature 97.4 F L Pulse Rate 106 H 105 H 90 Respiratory Rate 20 Blood Pressure 145/94 H 139/87 Pulse Oximetry 100 Oxygen Delivery Oxygen Flow Rate 09/28/24 18:29 09/28/24 20:00 09/28/24 20:00 Temperature 97.9 F 97.8 F Pulse Rate 90 101 H 107 H Respiratory Rate 20 20 Blood Pressure 139/87 120/71 Pulse Oximetry 100 99 Oxygen Delivery Oxygen Flow Rate 09/28/24 20:00 09/28/24 20:50 09/28/24 20:59 Temperature Pulse Rate 101 H 117 H Respiratory Rate Blood Pressure 120/71 Pulse Oximetry 99 Oxygen Delivery Nasal Cannula Oxygen Flow Rate 3 09/28/24 22:00 09/28/24 22:00 09/28/24 22:00 Temperature Pulse Rate 103 H 100 103 H Respiratory Rate Blood Pressure 134/75 134/75 Pulse Oximetry Oxygen Delivery Oxygen Flow Rate 09/28/24 23:55 09/29/24 00:00 09/29/24 00:00 Temperature 97.8 F Pulse Rate 97 97 93 Respiratory Rate 20 Blood Pressure 131/90 131/90 Pulse Oximetry 100 Oxygen Delivery Oxygen Flow Rate 09/29/24 00:00 09/29/24 01:48 09/29/24 02:00 Temperature Pulse Rate 86 91 Respiratory Rate Blood Pressure 126/72 Pulse Oximetry 100 Oxygen Delivery Nasal Cannula Oxygen Flow Rate 3 09/29/24 02:05 09/29/24 02:10 09/29/24 04:00 Temperature 97.8 F Pulse Rate 93 91 95 Respiratory Rate 20 Blood Pressure 126/72 126/72 126/84 Pulse Oximetry 99 Oxygen Delivery Oxygen Flow Rate 09/29/24 04:00 09/29/24 04:00 09/29/24 04:00 Temperature Pulse Rate 95 95 Respiratory Rate Blood Pressure 126/84 Pulse Oximetry 98 Oxygen Delivery Nasal Cannula Oxygen Flow Rate 2 09/29/24 05:20 09/29/24 05:30 09/29/24 05:34 Temperature Pulse Rate 82 78 78 Respiratory Rate 20 20 20 Blood Pressure Pulse Oximetry Oxygen Delivery Oxygen Flow Rate 09/29/24 06:00 09/29/24 06:00 09/29/24 06:00 Temperature Pulse Rate 97 97 97 Respiratory Rate Blood Pressure 115/85 115/85 Pulse Oximetry Oxygen Delivery Oxygen Flow Rate 09/29/24 07:46 09/29/24 08:00 09/29/24 08:00 Temperature 98.4 F Pulse Rate 96 95 Respiratory Rate 20 Blood Pressure 138/83 Pulse Oximetry 100 98 Oxygen Delivery Nasal Cannula Oxygen Flow Rate 2 09/29/24 08:15 09/29/24 08:18 09/29/24 10:00 Temperature Pulse Rate 92 92 85 Respiratory Rate Blood Pressure Pulse Oximetry Oxygen Delivery Oxygen Flow Rate 09/29/24 10:12 09/29/24 11:27 09/29/24 11:59 Temperature 97.8 F Pulse Rate 99 Respiratory Rate 18 Blood Pressure 127/81 Pulse Oximetry 100 Oxygen Delivery Nasal Cannula Nasal Cannula Oxygen Flow Rate 4 2 09/29/24 12:00 09/29/24 12:00 09/29/24 14:00 Temperature Pulse Rate 79 60 Respiratory Rate Blood Pressure Pulse Oximetry 96 Oxygen Delivery Nasal Cannula Oxygen Flow Rate 2 Intake/Output Intake/Output: Intake & Output 09/26/24 09/27/24 09/28/24 09/29/24 23:59 23:59 23:59 23:59 Intake Total 1314.6 636.5 1301.2 459.7 Output Total 3 1851 1200 Balance 1314.6 633.5 -549.8 -740.3 Meds/Results Medications: Active Medications Generic Name Dose Route Start Last Admin Trade Name Freq PRN Reason Stop Dose Admin Acetaminophen 650 mg 09/26/24 18:01 Acetaminophen 325 Mg Tablet PO Q4H PRN Mild Pain (1-3) or Fever Hydrocodone Bitart/Acetaminophen 1 tab 09/27/24 03:20 Hydrocodone/Acetaminophen (*Crx) 5-325 Mg Tablet PO Q8H PRN pain 7-10 Apixaban 2.5 mg 09/28/24 10:25 09/29/24 08:18 Apixaban 2.5 Mg Tablet PO 2.5 mg Q12HR RAFAEL Administration Benzonatate 100 mg 09/27/24 03:20 09/28/24 21:03 Benzonatate 100 Mg Capsule PO 100 mg BID PRN Administration Cough Benzonatate 200 mg 09/27/24 19:35 09/29/24 12:34 Benzonatate 100 Mg Capsule PO 200 mg TID RAFAEL Administration Diltiazem HCl 240 mg 09/29/24 09:00 09/29/24 08:15 Diltiazem Hcl Cd 240 Mg Cap.24hr PO 240 mg QAM RAFAEL Administration Estradiol 0.5 mg 09/27/24 09:00 09/29/24 08:17 Estradiol 0.5 Mg Tablet PO 0.5 mg DAILY RAFAEL Administration Famotidine 40 mg 09/27/24 09:00 09/29/24 08:16 Famotidine 20 Mg Tablet PO 40 mg DAILY RAFAEL Administration Fluticasone Propionate 1 spray 09/27/24 03:20 Fluticasone Propionate 0.05% Na Spr 16 Gm Btl (*Bkc) NASAL BID PRN Nasal Congestion Fluticasone/Umeclidinium/Vilanterol 1 puff 09/27/24 08:00 09/29/24 05:21 Fluticasone/Umeclidin/Vilanter 100-62.5-25 Mcg Ellipta INHALATION 1 puff DAILYRT RAFAEL Administration Furosemide 40 mg 09/28/24 09:00 09/29/24 08:19 Furosemide Inj 40 Mg/4 Ml Vial IV PUSH 40 mg DAILY RAFAEL Administration Hydroxyzine HCl 25 mg 09/27/24 03:39 Hydroxyzine Hcl 25 Mg Tablet PO TID PRN Itching Cefepime HCl 1 gm in 50 mls @ 100 mls/hr 09/28/24 16:00 09/29/24 04:50 Maxipime 1 Gm/Ns 50 Ml IVPB Infused Q12H RAFAEL Infusion Linezolid 600 mg 09/28/24 16:00 09/29/24 04:17 Linezolid 600 Mg Tablet PO 600 mg Q12H RAFAEL Administration Lisinopril 40 mg 09/27/24 09:00 09/29/24 08:18 Lisinopril 20 Mg Tablet PO 40 mg DAILY RAFAEL Administration Montelukast Sodium 10 mg 09/27/24 18:00 09/28/24 18:42 Montelukast Sodium 10 Mg Tablet PO 10 mg QPM RAFAEL Administration Multivitamins Therapeutic 1 tablet 09/27/24 09:00 09/29/24 08:18 Multivitamins Therapeutic Tab (*Bkc) PO 1 tablet DAILY RAFAEL Administration Ondansetron HCl 4 mg 09/29/24 13:27 Ondansetron Inj 4 Mg/2 Ml Vial IV PUSH Q12H PRN Nausea And Vomiting Perflutren Lipid Microsphere 0 ml 09/27/24 20:16 Perflutren Lipid Microspheres 1.5 Ml Vial Diluted To 10 Ml Total Volume IV PUSH 09/30/24 20:16 ONCE PRN adequate visualization Protocol Prednisone 10 mg 09/27/24 08:00 09/29/24 08:17 Prednisone 10 Mg Tablet PO 10 mg DAILY@0800 RAFAEL Administration Roflumilast 500 mcg 09/27/24 09:00 09/29/24 08:17 Roflumilast 500 Mcg Tablet PO 500 mcg DAILY RAFAEL Administration Ropinirole HCl 0.25 mg 09/27/24 21:00 09/28/24 20:59 Ropinirole Hcl 0.25 Mg Tablet PO 0.25 mg HS RAFAEL Administration Sodium Chloride 6 ml 09/29/24 05:00 09/29/24 05:18 Sodium Chlor 3% 15 Ml Neb (Respiratory Therapy) INHALATION 10/01/24 05:01 6 ml DAILY@0500 RAFAEL Administration Sotalol HCl 80 mg 09/28/24 10:20 09/29/24 08:18 Sotalol Hcl 80 Mg Tablet PO 80 mg Q12HR RAFAEL Administration Trimethobenzamide HCl 200 mg 09/29/24 13:28 Trimethobenzamide Hcl 200 Mg/2 Ml Vial IM Q6H PRN Nausea And Vomiting Radiology Results: ITS Impressions Chest X-Ray 09/26/24 14:56 Impression: 1: Bilateral upper lobe masses, suspicious for malignancy. Recommend correlation with CT chest. 2: Interval development of patchy bilateral airspace disease, compatible with pneumonia. Labs Labs: Laboratory Results - last 24 hr 09/28/24 09/29/24 16:14 06:15 WBC 15.4 H RBC 3.49 L Hgb 10.0 L Hct 34.4 L MCV 98.6 MCH 28.7 MCHC 29.1 L RDW 17.9 H Plt Count 223 MPV 11.5 H Immature Gran % (Auto) 0.8 H Neut % (Auto) 68.5 Lymph % (Auto) 20.9 [place] % (Auto) 7.7 Eos % (Auto) 1.9 Baso % (Auto) 0.2 Lymph # (Auto) 3.22 H [place] # (Auto) 1.2 H Eos # (Auto) 0.3 Baso # (Auto) 0.0 Abs Immat Gran (auto) 0.12 H Absolute Neuts (auto) 10.5 H Absolute Nucleated RBC 0.000 Band Neutrophils % Not Reportable Nucleated RBC % 0.0 Platelet Estimate Adequate Hypochromasia 1+ Anisocytosis 1+ Target Cells 1+ Ovalocytes 1+ Schistocytes Rare Sodium 139 Potassium 4.2 Chloride 104 Carbon Dioxide 30 Anion Gap 5 BUN 42 H Creatinine 1.76 H Estim Creat Clear Calc 21 Estimated GFR 28 L Glucose 145 H Calcium 8.7 Magnesium 1.9 Procalcitonin 0.1 Nasal MRSA (PCR) Not detected Quality VTE Prophylaxis VTE prophylaxis: pharmacologic ordered Hospitalist MIPS Advance Care Plan I have confirmed that the patient's Advanced Care Plan is present, code status is documented, or surrogate decision maker is listed in patient medical record.: Yes Medication Reconciliation I have utilized all available resources to obtain, update and review the patients current medications (includes all prescriptions, OTC, herbals, cannabis, and nutritional supplements).: Yes
[2024-09-29] MEDS: PANTOPRAZOLE 40 MG TABLET PO (16:55)
[2024-09-29] MEDS: MONTELUKAST SODIUM 10 MG TABLET PO (16:58)
[2024-09-29] MEDS: rOPINIRole HCL 0.25 MG TABLET PO (20:18)
--- NOTE | 2024-09-29 22:30 | ECG_ITS ---
Test Date: 2024-09-29 23:48:02 Measurements Intervals [place] Rate: 67 P: 56 GA: 174 QRS: 110 QRSD: 90 T: 63 QT: 406 QTc: 430 Interpretive Statements SINUS RHYTHM WITH OCCASIONAL SUPRAVENTRICULAR PREMATURE COMPLEXES POSSIBLE RIGHT VENTRICULAR HYPERTROPHY [SOME/ALL OF: PROMINENT R IN V1, LATE TRANSITION, RAD, YVAN, SSS] LONG QT INTERVAL ABNORMAL ECG Compared to ECG 09/29/2024 10:39:22 SINUS RHYTHM REPLACES ATRIAL FIBRILLATION Electronically Signed On 09-30-2024 07:42:22 CDT by Jalil Taylor M.D.
[2024-09-30] VITALS (11 sets, daily range): BP systolic 145–161; BP diastolic 64–70; PULSE 59–75; RESP 20; TEMP 36.3–36.4; O2SAT 95–100
[2024-09-30] MEDS: LINEZOLID 600 MG TABLET PO (04:07)
[2024-09-30] MEDS: CEFEPIME 1 GM/NS 50 ML 1 GM/50 ML BAG IVPB (04:07)
[2024-09-30 04:32] LABS: Basophils Percent Auto 0.2 % (0.2-1.2); Eosinophils Absolute Auto 0.2 K/mm3 (0-0.3); Eosinophils Percent Auto 1.3 % (0-4.4); Hematocrit 35.2 % (37.0-47.0); Hemoglobin 10.6 g/dL (12.0-15.0); Immature Granulocyte Absolute 0.11 K/mm3 (0.00-0.031); Immature Granulocyte Percent A 0.8 % (0-0.5); Lymphocytes Absolute Auto 2.41 K/mm3 (0.9-3.2); Lymphocytes Percent Auto 17.2 % (18.3-44.2); Mean Corpuscular HGB Conc 30.1 g/dl (32-36); Mean Corpuscular Volume 96.2 fl (80-100); Mean Platelet Volume 11.5 fl (7.4-10.4); Monocytes Percent Auto 7.4 % (2.6-8.5); Neutrophils Absolute Auto 10.3 K/mm3 (1.3-6.7); Neutrophils Percent Auto 73.1 % (45.5-73.1); Platelet Count Result 241 k/mm3 (150-375); Red Blood Count 3.66 M/mm3 (4.2-5.4); Red Cell Distribution Width 17.2 % (11.5-14.5); White Blood Count 14.1 K/mm3 (4.5-10.0)
[2024-09-30 04:50] LABS: Anion Gap 6 mmol/L (4-12); Blood Urea Nitrogen 41 mg/dL (7-17); Calcium 8.9 mg/dL (8.4-10.2); Carbon Dioxide 33 mmol/L (22-30); Chloride 102 mmol/L (98-107); Estimated CRCL calculation 19 ml/min; Estimated Glomerular Filt Rate 25; Glucose 172 mg/dL (65-110); Potassium 3.9 mmol/L (3.4-5.0); Sodium 141 mmol/L (137-145)
[2024-09-30] MEDS: SODIUM CHLOR 3% 15 ML NEB (RESPIRATORY THERAPY) 6 ML INHALATION (05:27)
--- NOTE | 2024-09-30 06:01 | PCRCNOTE ---
pt was unable to provide a sputum sample
--- NOTE | 2024-09-30 06:41 | PCRCNOTE ---
RN was able to submit a sputum culture for this patient
--- NOTE | 2024-09-30 07:37 | PM.PNCARD ---
Progress Note: A&P Assessment and Plan (1) Atrial fibrillation with RVR: Code(s): I48.91 - Unspecified atrial fibrillation Status: Acute Assessment and Plan: In Sinus rhythm. [id number] 4. On Eliquis 2.5 mg BID. On 09/28/24 started Sotalol 80 mg BID. On Diltiazem 240 mg daily. 09/28/24 Echo: 60-65%, indeterminate diastolic function, mild RVE, RV dysfunction with TAPSE 0.9 cm, mod biatrial enlargement, mod-severe MR, mod TR, RVSP 52 mmHg. Will sign off, please call with any questions. Upon discharge have her f/u with me in 1-2 weeks. (2) HTN (hypertension): Code(s): I10 - Essential (primary) hypertension Status: Chronic Assessment and Plan: Stable. (3) Pneumonia: Code(s): J18.9 - Pneumonia, unspecified organism Status: Acute Assessment and Plan: On antibiotics. (4) COPD exacerbation: Code(s): J44.1 - Chronic obstructive pulmonary disease with (acute) exacerbation Status: Acute Subjective Date/time seen: 09/30/24 07:37 Interval history: Denies sob and chest pains. Exam Const: General: cooperative, healthy appearing and comfortable Orientation/consciousness: oriented to person, oriented to place and oriented to time Resp: Auscultation: clear to auscultation bilaterally, no crackles, no rales, no rhonchi and no wheezes Cardio: Rate: regular rate Rhythm: regular rhythm Heart sounds: no murmurs Peripheral pulses: dorsalis pedis present Neuro: General: oriented to person, oriented to place and oriented to time Extrem: Right lower extremity: no edema Left lower extremity: no edema Objective Data Vital Signs Vital Signs: Vital Signs - 24 hr 09/29/24 07:46 09/29/24 08:00 09/29/24 08:00 Temperature 98.4 F Pulse Rate 96 95 Respiratory Rate 20 Blood Pressure 138/83 Pulse Oximetry 100 98 Oxygen Delivery Nasal Cannula Oxygen Flow Rate 2 09/29/24 08:15 09/29/24 08:18 09/29/24 10:00 Temperature Pulse Rate 92 92 85 Respiratory Rate Blood Pressure Pulse Oximetry Oxygen Delivery Oxygen Flow Rate 09/29/24 10:12 09/29/24 11:27 09/29/24 11:59 Temperature 97.8 F Pulse Rate 99 Respiratory Rate 18 Blood Pressure 127/81 Pulse Oximetry 100 Oxygen Delivery Nasal Cannula Nasal Cannula Oxygen Flow Rate 4 2 09/29/24 12:00 09/29/24 12:00 09/29/24 14:00 Temperature Pulse Rate 79 60 Respiratory Rate Blood Pressure Pulse Oximetry 96 Oxygen Delivery Nasal Cannula Oxygen Flow Rate 2 09/29/24 16:00 09/29/24 16:00 09/29/24 16:39 Temperature 97.1 F L Pulse Rate 66 62 Respiratory Rate 20 Blood Pressure 144/66 H Pulse Oximetry 96 100 Oxygen Delivery Nasal Cannula Oxygen Flow Rate 2 09/29/24 17:37 09/29/24 18:00 09/29/24 20:00 Temperature 97.6 F Pulse Rate 68 78 Respiratory Rate 20 Blood Pressure 127/63 Pulse Oximetry 97 93 Oxygen Delivery Nasal Cannula Oxygen Flow Rate 2 09/29/24 20:00 09/29/24 20:15 09/29/24 20:17 Temperature Pulse Rate 81 76 Respiratory Rate Blood Pressure Pulse Oximetry 93 Oxygen Delivery Nasal Cannula Oxygen Flow Rate 2 09/29/24 22:00 09/29/24 22:07 09/29/24 23:38 Temperature 97.6 F Pulse Rate 65 67 Respiratory Rate 20 Blood Pressure 142/72 H Pulse Oximetry 97 98 Oxygen Delivery Nasal Cannula Oxygen Flow Rate 2 09/29/24 23:50 09/30/24 00:00 09/30/24 02:00 Temperature Pulse Rate 59 L 69 Respiratory Rate Blood Pressure Pulse Oximetry 98 Oxygen Delivery Nasal Cannula Oxygen Flow Rate 2 09/30/24 04:00 09/30/24 04:00 09/30/24 04:05 Temperature 97.6 F Pulse Rate 66 75 Respiratory Rate 20 Blood Pressure 145/64 H Pulse Oximetry 100 95 Oxygen Delivery Nasal Cannula Oxygen Flow Rate 2 09/30/24 05:49 09/30/24 06:00 09/30/24 06:01 Temperature Pulse Rate 68 63 74 Respiratory Rate 20 20 Blood Pressure Pulse Oximetry Oxygen Delivery Oxygen Flow Rate Intake/Output Intake/Output: Intake & Output 09/27/24 09/28/24 09/29/24 09/30/24 23:59 23:59 23:59 23:59 Intake Total 636.5 1301.2 1099.7 544 Output Total 3 7621 2700 200 Balance 633.5 -549.8 -1600.3 344 Meds/Results Medications: Active Medications Generic Name Dose Route Start Last Admin Trade Name Freq PRN Reason Stop Dose Admin Acetaminophen 650 mg 09/26/24 18:01 Acetaminophen 325 Mg Tablet PO Q4H PRN Mild Pain (1-3) or Fever Hydrocodone Bitart/Acetaminophen 1 tab 09/27/24 03:20 Hydrocodone/Acetaminophen (*Crx) 5-325 Mg Tablet PO Q8H PRN pain 7-10 Apixaban 2.5 mg 09/28/24 10:25 09/29/24 20:18 Apixaban 2.5 Mg Tablet PO 2.5 mg Q12HR RAFAEL Administration Benzonatate 100 mg 09/27/24 03:20 09/28/24 21:03 Benzonatate 100 Mg Capsule PO 100 mg BID PRN Administration Cough Benzonatate 200 mg 09/27/24 19:35 09/29/24 16:55 Benzonatate 100 Mg Capsule PO 200 mg TID RAFAEL Administration Diltiazem HCl 240 mg 09/29/24 09:00 09/29/24 08:15 Diltiazem Hcl Cd 240 Mg Cap.24hr PO 240 mg QAM RAFAEL Administration Estradiol 0.5 mg 09/27/24 09:00 09/29/24 08:17 Estradiol 0.5 Mg Tablet PO 0.5 mg DAILY RAFAEL Administration Famotidine 40 mg 09/27/24 09:00 09/29/24 08:16 Famotidine 20 Mg Tablet PO 40 mg DAILY RAFAEL Administration Fluticasone Propionate 1 spray 09/27/24 03:20 Fluticasone Propionate 0.05% Na Spr 16 Gm Btl (*Bkc) NASAL BID PRN Nasal Congestion Fluticasone/Umeclidinium/Vilanterol 1 puff 09/27/24 08:00 09/29/24 05:21 Fluticasone/Umeclidin/Vilanter 100-62.5-25 Mcg Ellipta INHALATION 1 puff DAILYRT RAFAEL Administration Furosemide 20 mg 09/30/24 09:00 Furosemide 20 Mg Tablet PO DAILY RAFAEL Hydroxyzine HCl 25 mg 09/27/24 03:39 Hydroxyzine Hcl 25 Mg Tablet PO TID PRN Itching Cefepime HCl 1 gm in 50 mls @ 100 mls/hr 09/28/24 16:00 09/30/24 04:40 Maxipime 1 Gm/Ns 50 Ml IVPB Infused Q12H RAFAEL Infusion Linezolid 600 mg 09/28/24 16:00 09/30/24 04:07 Linezolid 600 Mg Tablet PO 600 mg Q12H RAFAEL Administration Lisinopril 40 mg 09/27/24 09:00 09/29/24 08:18 Lisinopril 20 Mg Tablet PO 40 mg DAILY RAFAEL Administration Montelukast Sodium 10 mg 09/27/24 18:00 09/29/24 16:58 Montelukast Sodium 10 Mg Tablet PO 10 mg QPM RAFAEL Administration Multivitamins Therapeutic 1 tablet 09/27/24 09:00 09/29/24 08:18 Multivitamins Therapeutic Tab (*Bkc) PO 1 tablet DAILY RAFAEL Administration Ondansetron HCl 4 mg 09/29/24 13:27 Ondansetron Inj 4 Mg/2 Ml Vial IV PUSH Q12H PRN Nausea And Vomiting Pantoprazole Sodium 40 mg 09/29/24 16:25 09/29/24 16:55 Pantoprazole 40 Mg Tablet PO 40 mg DAILY RAFAEL Administration Perflutren Lipid Microsphere 0 ml 09/27/24 20:16 Perflutren Lipid Microspheres 1.5 Ml Vial Diluted To 10 Ml Total Volume IV PUSH 09/30/24 20:16 ONCE PRN adequate visualization Protocol Prednisone 10 mg 09/27/24 08:00 09/29/24 08:17 Prednisone 10 Mg Tablet PO 10 mg DAILY@0800 RAFAEL Administration Roflumilast 500 mcg 09/27/24 09:00 09/29/24 08:17 Roflumilast 500 Mcg Tablet PO 500 mcg DAILY RAFAEL Administration Ropinirole HCl 0.25 mg 09/27/24 21:00 09/29/24 20:18 Ropinirole Hcl 0.25 Mg Tablet PO 0.25 mg HS RAFAEL Administration Sodium Chloride 6 ml 09/29/24 05:00 09/30/24 05:27 Sodium Chlor 3% 15 Ml Neb (Respiratory Therapy) INHALATION 10/01/24 05:01 6 ml DAILY@0500 RAFAEL Administration Sotalol HCl 80 mg 09/28/24 10:20 09/29/24 20:17 Sotalol Hcl 80 Mg Tablet PO 80 mg Q12HR RAFAEL Administration Trimethobenzamide HCl 200 mg 09/29/24 13:28 Trimethobenzamide Hcl 200 Mg/2 Ml Vial IM Q6H PRN Nausea And Vomiting Radiology Results: ITS Impressions Chest X-Ray 09/30/24 05:44 Impression: 1: Stable interstitial edema. Cardiomegaly. 2: Bilateral upper lobe masses, suspicious for primary malignancy or metastatic disease. Recommend correlation with CT. Labs Labs: Laboratory Results - last 24 hr 09/30/24 04:06 WBC 14.1 H RBC 3.66 L Hgb 10.6 L Hct 35.2 L MCV 96.2 MCH 29.0 MCHC 30.1 L RDW 17.2 H Plt Count 241 MPV 11.5 H Immature Gran % (Auto) 0.8 H Neut % (Auto) 73.1 Lymph % (Auto) 17.2 L [place] % (Auto) 7.4 Eos % (Auto) 1.3 Baso % (Auto) 0.2 Lymph # (Auto) 2.41 [place] # (Auto) 1.0 H Eos # (Auto) 0.2 Baso # (Auto) 0.0 Abs Immat Gran (auto) 0.11 H Absolute Neuts (auto) 10.3 H Absolute Nucleated RBC 0.000 Nucleated RBC % 0.0 Sodium 141 Potassium 3.9 Chloride 102 Carbon Dioxide 33 H Anion Gap 6 BUN 41 H Creatinine 1.95 H Estim Creat Clear Calc 19 Estimated GFR 25 L Glucose 172 H Calcium 8.9 Magnesium 2.0
[2024-09-30] MEDS: FLUTICASONE/UMECLIDIN/VILANTER 100-62.5-25 MCG ELLIPTA 1 PUFF INHALATION (08:02)
--- NOTE | 2024-09-30 08:07 | PC.NURSE ---
Notified Malika that Dr Mixon is ok with patient discharge before fifth/final EKG. PT is NSR rate 60-70 currently.
--- NOTE | 2024-09-30 08:17 | PM.DS ---
DS: Admitting Diagnosis Discharge Date 09/30/2024 Admitting Diagnosis Afib with RVR DS: Discharge Diagnosis Discharge Diagnosis (1) Atrial fibrillation with RVR: Code(s): I48.91 - Unspecified atrial fibrillation Status: Acute (2) Nausea and vomiting in adult: Code(s): R11.2 - Nausea with vomiting, unspecified Status: Acute DS: Summary Hospital Course Reason for hospitalization: Copied from [facility] 09/27: The patient is an 84-year-old female with history of COPD on 2 L of oxygen, admitted for afib with RVR, acute respiratory failure. She reports several weeks of coughing. Wednesday had bleeding to right eye related to strong cough. and Wednesday left eye bled. She was having increased shortness of breath and her son increased oxygen to 4L. Later in the day she became acutely short of breath and so EMS was called In the ED, HR 110-143, afib with RVR. WBC elevated to 17.8, H&H 12/40.4, Plt 249. NT-proBNP 4550. 09/26 Chest X-ray showed 1: Bilateral upper lobe masses, suspicious for malignancy. Recommend correlation with CT chest. 2: Interval development of patchy bilateral airspace disease, compatible with pneumonia. RVP was negative. Family reported that she had shortness of breath after some medication in the ER, and believe it may have been the azithromycin, but it also comes in 250ml fluid. For afib with RVR she was given IV metoprolol, IV dilt, and was started on a diltiazem drip She is DNR/DNI. Pulmonary has previously discussed workup of the lung nodules but she declined. She does not wish to have a CT to evaluate further. She is ok with IV medications and would be willing to use a bipap mask if needed Hospital Course: Acute on chronic respiratory failure 2L O2 at baseline Diuresed during admission Atrial fibrillation with RVR: Unclear if new afib and unclear onset. Acute shortness of breath started 09/26. Also had a cough for several weeks first. Improving with diltiazem drip. Cardiology consulted, switched to p.o. diltiazem and started sotalol. She Will follow up in the Cardiology Clinic Continued ASA/Plavix. Added apixaban 2.5 BID Congestive heart failure: Likely acute on chronic systolic failure in the setting of afib with RVR Diuresed during admission --Follow up with PCP, cardiology Pneumonia: Flu/RSV/Covid negative May have had a viral infection give cough vs chf exacerbation. pneumonia on chest x-ray. Patient declined CT and was very certain that she did not wish to have a CT. Does not wish to workup lung nodules and does not wish to have treatment for any potential cancer. Received Ceftriaxone and Azithromycin but increased shortness of breath with Azithromycin in the ED (may have been from fluid overload, no rash or itching). Broadened to Cefepime and Zyvox empirically with improvement. Chest x-ray 09/30 1: Stable interstitial edema. Cardiomegaly. 2: Bilateral upper lobe masses, suspicious for primary malignancy or metastatic disease. Recommend correlation with CT. --Continue Augmentin BID x5 days --Patient does not wish to have a chest CT or treatment for cancer if present Leukocytosis: Elevated in the setting of pneumonia, improving Follow up with PCP Patient is DNR/DNI agreeable to imaging (with exception to Chest CT) and IV medications, labs. Bipap is ok Status at Discharge Cognitive/behavioral status at discharge: A&Ox4 Time Spent with Patient Time attestation: Total time spent providing and/or coordinating discharge services: Exam Narrative: General - Awake and alert. No acute distress Eyes - PERRLA, EOM intact ENT - No thrush, No erythema Neck - No noticeable or palpable swelling Lymph Nodes - No lymphadenopathy Cardiovascular - RRR no m/r/g, no JVD Lungs: Crackles all lobes, decreased RLL, left lung. No wheezing, no use of accessory muscles Skin - Skin warm and dry, no wounds or rashes Abdomen - Normal bowel sounds, abdomen soft and nontender Extremities - No edema, cyanosis or clubbing Musculoskeletal - 5/5 strength, normal range of motion, no swollen or erythematous joints. Neurological ? Alert and oriented x 3, CN 2-12 grossly intact. Psych: Normal mood and affect DS: Data Data Completed and Pending Labs on day of discharge: Labs from last 24 hours 09/30/24 04:06 WBC 14.1 H RBC 3.66 L Hgb 10.6 L Hct 35.2 L MCV 96.2 MCH 29.0 MCHC 30.1 L RDW 17.2 H Plt Count 241 MPV 11.5 H Immature Gran % (Auto) 0.8 H Neut % (Auto) 73.1 Lymph % (Auto) 17.2 L Bland % (Auto) 7.4 Eos % (Auto) 1.3 Baso % (Auto) 0.2 Lymph # (Auto) 2.41 Bland # (Auto) 1.0 H Eos # (Auto) 0.2 Baso # (Auto) 0.0 Abs Immat Gran (auto) 0.11 H Absolute Neuts (auto) 10.3 H Absolute Nucleated RBC 0.000 Nucleated RBC % 0.0 Sodium 141 Potassium 3.9 Chloride 102 Carbon Dioxide 33 H Anion Gap 6 BUN 41 H Creatinine 1.95 H Estim Creat Clear Calc 19 Estimated GFR 25 L Glucose 172 H Calcium 8.9 Magnesium 2.0 Preliminary micro results at discharge 09/26/24 15:00 Blood Culture - Preliminary Blood 09/26/24 15:34 Blood Culture - Preliminary Blood Discharge Plan Discharge Attending physician on discharge: Maria Teresa Hamilton Consulting providers: Shoaib Mixon Discharging Clinician: Maria Teresa Hamilton Anticipated Discharge Date/Time: 09/30/24 08:08 Patient Disposition: Home Activity: may shower Diet: regular Discharge Instructions: Follow up with your PCP in 1-2 weeks. Follow up with Cardiology in 1-2 weeks. Come back to the ER for increased shortness of breath Patient Instructions: Antibiotic Form, Diltiazem (By mouth), Sotalol (By mouth), A-fib (Atrial Fibrillation) (GEN), COPD (Chronic Obstructive Pulmonary Disease) (GEN), Pneumonia (GEN) Patient Language: Estonian Stand Alone Forms: General Discharge Information Follow-up/Referrals: Shoaib Mixon DO [Physician] - 2 Weeks Hardy Steen MD [Primary Care Provider] - 2 Weeks Discharge Medications: New benzonatate 100 mg Capsule 200 mg PO TID PRN (Reason: cough) Qty: 20 0RF diltiazem HCl 240 mg Capsule,Ext.Rel 24h Degradable 240 mg PO QAM Qty: 30 2RF sotalol 80 mg Tablet 80 mg PO Q12HR 60 Days Qty: 120 3RF pantoprazole 40 mg Tablet,Delayed Release (Dr/Ec) 40 mg PO DAILY 30 Days Qty: 30 0RF Eliquis 2.5 mg Tablet 2.5 mg PO Q12HR Qty: 60 2RF amoxicillin-pot clavulanate 875-125 mg tablet 1 tablet PO Q12H Qty: 10 0RF Continued lisinopril 40 mg tablet 40 mg PO DAILY prednisone 10 mg tablet 10 mg PO DAILY multivitamin [Daily Multi-Vitamin] Tablet 1 tablet PO DAILY meclizine 12.5 mg Tablet 12.5 mg PO DAILY PRN (Reason: Dizziness) clopidogrel [Plavix] 75 mg Tablet 75 mg PO DAILY ropinirole [Requip] 0.25 mg Tablet 0.25 mg PO HS aspirin 81 mg Tablet,Chewable 81 mg PO DAILY hydroxyzine HCl 25 mg Tablet 25 mg PO TID PRN (Reason: Itching) estradiol 0.5 mg Tablet 0.5 mg PO DAILY fluticasone propionate [Flonase Allergy Relief] 50 mcg/actuation [place],Suspension 2 spray INTRANASAL BID PRN (Reason: Nasal Congestion) famotidine 40 mg tablet 40 mg PO DAILY montelukast 10 mg tablet 10 mg PO QPM amlodipine 5 mg tablet 5 mg PO DAILY ondansetron 4 mg Tablet,Disintegrating 4 mg PO Q6H PRN (Reason: Nausea) Qty: 10 0RF hydrocodone-acetaminophen 5-325 mg tablet 1 tablet PO Q8H PRN (Reason: pain) Qty: 14 0RF albuterol sulfate [ProAir HFA] 90 mcg/actuation HFA aerosol inhaler 2 inhalation INHALATION Q4-6H PRN (Reason: shortness of breath or wheezing) Qty: 8.5 6RF albuterol sulfate 2.5 mg /3 mL (0.083 %) solution for nebulization 2.5 mg inhalation Q6H PRN (Reason: shortness of breath or wheezing) Qty: 360 3RF Trelegy Ellipta 100-62.5-25 mcg blister with device 1 inh inhalation DAILY Qty: 60 11RF Rx Instructions: rinse mouth and spit after each use Daliresp 500 mcg tablet 500 mcg PO DAILY Qty: 30 11RF Discontinued benzonatate [Tessalon Perles] 100 mg capsule 100 mg PO BID PRN (Reason: Cough) propranolol 60 mg Tablet 60 mg PO BID Date of admission: 09/27/24 10:26 Primary Care Provider: Hardy Steen Admitting Provider: Roger Orozco Attending physician on admission: Maria Teresa Hamilton Condition: Stable Quality VTE Prophylaxis VTE prophylaxis: pharmacologic ordered Hospitalist MIPS Heart Failure (Exclusion) Patient has history of Heart Transplant or Left Ventricular Assistive Device?: No IF YES, STOP HERE Heart Failure (Qualifier) Patient has current or prior documentation of LVEF less than or equal to 40%, or mod/servere depressed LVSF?: No IF NO, STOP HERE
[2024-09-30] MEDS: FAMOTIDINE 20 MG TABLET 40 MG PO (08:22)
[2024-09-30] MEDS: MULTIVITAMINS THERAPEUTIC TAB (*BKC) 1 TABLET PO (08:22)
[2024-09-30] MEDS: ROFLUMILAST 500 MCG TABLET PO (08:22)
[2024-09-30] MEDS: SOTALOL HCL 80 MG TABLET PO (08:22)
[2024-09-30] MEDS: estradioL 0.5 MG TABLET PO (08:22)
[2024-09-30] MEDS: APIXABAN 2.5 MG TABLET PO (08:22)
[2024-09-30] MEDS: FUROSEMIDE 20 MG TABLET PO (08:22)
[2024-09-30] MEDS: BENZONATATE 100 MG CAPSULE 200 MG PO (08:22)
[2024-09-30] MEDS: predniSONE 10 MG TABLET PO (08:22)
[2024-09-30] MEDS: dilTIAZem HCL CD 240 MG CAP.24HR PO (08:23)
[2024-09-30] MEDS: lisinopriL 20 MG TABLET 40 MG PO (08:23)
[2024-09-30] MEDS: PANTOPRAZOLE 40 MG TABLET PO (08:23)
--- NOTE | 2024-09-30 10:27 | PC.NURSE ---
Reviewed discharge education, instructions, and medications with the patient and her son. IVs removed.
[2024-10-02 16:53] LABS: Source FLEX SWAB
== END 2024-09-30 10:20 | disposition home or self-care (01) | DRG 193 ==
LOC: ANHED 16:54 → ANHIMU 21:16
PROVIDERS: Emergency Medicine; Internal Medicine Cardiovascular Disease; Admitting Provider Internal Medicine; Emergency Provider Emergency Medicine; PCP Family Medicine; Visit Provider Nurse Practitioner Acute Care
DX: J18.9 Pneumonia, unspecified organism (principal); I50.23 Acute on chronic systolic (congestive) heart failure; J96.00 Acute respiratory failure, unspecified whether with hypoxia or hypercapnia; I13.0 Hypertensive heart and chronic kidney disease with heart failure and stage 1 through stage 4 chronic kidney disease, or unspecified chronic kidney disease; J44.0 Chronic obstructive pulmonary disease with (acute) lower respiratory infection; J44.1 Chronic obstructive pulmonary disease with (acute) exacerbation; Z66 Do not resuscitate; Z99.81 Dependence on supplemental oxygen; E78.5 Hyperlipidemia, unspecified; H91.90 Unspecified hearing loss, unspecified ear; I48.91 Unspecified atrial fibrillation; R91.8 Other nonspecific abnormal finding of lung field; G25.81 Restless legs syndrome; K21.9 Gastro-esophageal reflux disease without esophagitis; N18.30 Chronic kidney disease, stage 3 unspecified; Z86.73 Personal history of transient ischemic attack (TIA), and cerebral infarction without residual deficits; Z98.41 Cataract extraction status, right eye; Z98.42 Cataract extraction status, left eye; Z87.891 Personal history of nicotine dependence; Z79.82 Long term (current) use of aspirin; Z20.822 Contact with and (suspected) exposure to COVID-19; Z79.01 Long term (current) use of anticoagulants; Z79.02 Long term (current) use of antithrombotics/antiplatelets
CPT/HCPCS: 36415; 36600; 71045; 80048; 80053; 82805; 83605; 83735; 83880; 84145; 84484; 85018; 85025; 85610; 85652; 85730; 86140; 87040; 87070; 87205; 87254; 87637; 87641; 93005; 93306; 94640; 96361; 96365; 96368; 96375; 96376; 97161; 97165; 99291; A9270; G0378; J0456; J0692; J0696; J1644; J1938; J2405; J2919; J7030; J7050; J7512